=== PATIENT | female | born 1930 | race Caucasian/White ===

== ENCOUNTER 2016-08-08 06:23 | Day surgery (SDC) | payer MEDICARE, BC ==
[2016-08-08] MEDS ORDERED: fentaNYL 100 MCG/2 ML SDV ONE (07:27)
[2016-08-08] MEDS ORDERED: Propofol 200 MG/20 ML SDV ONE (07:27)
[2016-08-08] MEDS ORDERED: Dextrose 5%-Lactated Ringers 1,000 ML IV SCH (07:45)
[2016-08-08] MEDS ORDERED: Glycopyrrolate 0.2 MG/ML 2 ML SYRINGE IVPUSH ONE (08:30)
[2016-08-08 09:41] VITALS: BP 113/58
--- NOTE | 2016-08-16 09:19 | OR ---
DATE OF PROCEDURE: 08/08/2016 PREOPERATIVE DIAGNOSIS: Epigastric pain status previous bariatric surgery. POSTOPERATIVE DIAGNOSES: 1. 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 2. Chronic gastritis with gastric polyps x2. OPERATIVE PROCEDURE: Upper GI endoscopy with. 1. Polypectomy of antral polyps x2. 2. Biopsies of antrum for CLOtest. ANESTHESIA: IV sedation. INDICATION FOR PROCEDURE: The patient is approximately 4 years status post bariatric surgical procedure done at the [facility]. She was coming into the procedure unclear as to what the exact procedure was. She is having increasing problems with epigastric pain, and the plan is to proceed with an upper endoscopy with biopsies as indicated. Potential risks, including bleeding and perforation were discussed, and the patient wishes to proceed. DETAILS OF PROCEDURE: The patient was taken to the operating room, placed in a left lateral decubitus position. IV sedation was administered, after which the upper GI endoscope was passed orally through the esophagus and into the upper gastric pouch. Examination at this point revealed the patient had a clear-cut Maricruz-en-Y gastric bypass. The distal esophagus and EG junction area were unremarkable. The pouch itself was somewhat reddened, and there was a small amount of bile present. The patient was noted to have a well-defined gastrogastric fistula as well. The gastrojejunostomy itself emptied into a Maricruz limb, which appeared to be standard in location with a blind end on the other side of the main course of the Maricruz limb, indicative of this being a Maricruz-en-Y gastric bypass, as opposed to some sort of a Billroth-II type configuration. The gastrogastric fistula was likely resulting in some bile gastritis within the pouch. In the bypassed stomach, after passing through the fistula, the patient was noted to have chronic gastritis appearance in the antrum. There were two gastric polyps present. The latter were then excised by means of snare technique and both sent for histologic evaluation. An additional biopsy from the antrum was obtained for CLOtest for H. pylori. Pyloric channel and duodenum to the junction of the third and fourth portions were unremarkable. The scope was then withdrawn, after the polypectomy and antral biopsies were obtained. The procedure was concluded. The patient was taken to the recovery room in satisfactory condition. Plan will be to see the patient and her son back next week to discuss treatment options. She appears to be reasonably in good shape to proceed with a revisional procedure, i.e. division of gastrogastric fistula. This would likely result in improvement in her weight, as well as avoid some of the problems with the epigastric discomfort that she has been having. Timi Strong MD /[id number]
== END 2016-08-08 09:56 | disposition home or self-care (01) ==
LOC: JP.SDS 06:23
PROVIDERS: ATTEND Surgery
DX: K29.50 Unspecified chronic gastritis without bleeding (principal); K21.9 Gastro-esophageal reflux disease without esophagitis; Z98.84 Bariatric surgery status
CPT/HCPCS: 43239; 87081; 88305; 88342; J2704; J3010; J7042

== ENCOUNTER 2016-08-19 09:33 | Inpatient (IN) | payer MEDICARE, BC ==
[2016-08-19] MEDS ORDERED: Scopolamine 1.5 MG Transdermal Patch TOP SCH (09:45)
[2016-08-19] MEDS ORDERED: Gabapentin 300 MG Cap PO ONE (09:45)
[2016-08-19] MEDS ORDERED: Celecoxib 200 MG Cap PO ONE (09:45)
[2016-08-19] MEDS ORDERED: Acetaminophen 500 MG Tab PO ONE (09:45)
[2016-08-19] MEDS: Dextrose 5%-Lactated Ringers 1,000 ML IV SCH ×2 (10:26→17:05)
[2016-08-19] MEDS ORDERED: HYDROmorphone/Normal Saline 15 MG/30 ML PCA IV PRN (10:31)
[2016-08-19] MEDS ORDERED: Naloxone 0.4 MG/ML SDV IVPUSH PRN (10:31)
[2016-08-19] MEDS ORDERED: cefOXitin 2 GM in Sodium Chloride 0.9% 50 ML IV ONE (11:15)
[2016-08-19] MEDS ORDERED: Neostigmine Methylsulfate 1 MG/ML 5 ML Syringe ONE (11:52)
[2016-08-19] MEDS ORDERED: Propofol 200 MG/20 ML SDV ONE (11:54)
[2016-08-19] MEDS ORDERED: Scopolamine 1.5 MG Transdermal Patch ONE (11:54)
[2016-08-19] MEDS ORDERED: Dexamethasone 4 MG/ML SDV ONE (11:54)
[2016-08-19] MEDS ORDERED: Ondansetron 4 MG/2 ML SDV ONE (11:54)
[2016-08-19] MEDS ORDERED: Succinylcholine/Normal Saline 200 MG/10 ML Syringe ONE (11:54)
[2016-08-19] MEDS ORDERED: Lactated Ringers 1,000 ML ONE ×2 (11:54→14:35)
[2016-08-19] MEDS ORDERED: Rocuronium 50 MG/5 ML Vial ONE (11:54)
[2016-08-19] MEDS ORDERED: fentaNYL 250 MCG/5 ML SDV ONE (11:55)
[2016-08-19] MEDS ORDERED: Ropivacaine 43 ML, Dexamethasone 8 MG, EPINEPHrine 0.4 MG, Sodium Chloride 0.9% 34.6 ML NERVRT SCH ×4 (12:00)
[2016-08-19] MEDS ORDERED: Ketamine 500 MG/5 ML MDV IV SCH (12:00)
[2016-08-19] MEDS ORDERED: Lidocaine 2% 100 MG/5 ML Syringe IVPUSH SCH (12:00)
[2016-08-19] MEDS ORDERED: Lidocaine 1% 2 ML ONE (13:36)
[2016-08-19] MEDS ORDERED: Meropenem 500 MG SDV ONE (14:19)
[2016-08-19] MEDS ORDERED: Meropenem 500 MG SDV IRR ONE (14:22)
[2016-08-19] MEDS: Lidocaine 0.4%/D5W 2 GM/500 ML BAG IV SCH (17:12)
[2016-08-19] MEDS ORDERED: Ondansetron 4 MG/2 ML SDV IVPUSH PRN (17:18)
[2016-08-19] MEDS ORDERED: Labetalol 20 MG/4 ML Syringe IVPUSH PRN (17:18)
[2016-08-19] MEDS ORDERED: hydrOXYzine HCl 50 MG/ML SDV IM PRN (17:18)
[2016-08-19] MEDS ORDERED: SCOPOLAMINE PATCH ASK TOP SCH (17:18)
[2016-08-19] MEDS ORDERED: Metoclopramide 10 MG/2 ML SDV IV PRN (17:23)
[2016-08-19] MEDS ORDERED: diphenhydrAMINE 50 MG/ML SDV IV PRN (17:23)
[2016-08-19] MEDS: Acetaminophen Soln 650 MG/20.3 ML UD Cup PO SCH (17:53)
[2016-08-19] MEDS ORDERED: Lactated Ringers 500 ML IV SCH (20:00)
[2016-08-19] MEDS: MVI, Adult with Vitamin K 10 ML, Thiamine 200 MG, Chromium/Copper/Mang/Selen/Zn 1 ML in... IV SCH ×4 (20:12)
[2016-08-19] MEDS ORDERED: Gabapentin 250 MG/5 ML Solution ML 470 ML Bottle PO SCH (21:00)
[2016-08-19] MEDS: Gabapentin 250 MG/5 ML Solution ML 470 ML Bottle PO SCH (21:03)
[2016-08-19] MEDS: Heparin Sodium 5,000 Units/ML Vial SUBCUT SCH (21:07)
[2016-08-19] MEDS: Pantoprazole 40 MG Vial IVPUSH SCH (21:20)
[2016-08-19] MEDS: cefOXitin 2 GM in Sodium Chloride 0.9% 50 ML IV SCH (21:25)
[2016-08-19] MEDS: Naloxone 0.4 MG/ML SDV IV PRN ×2 (23:11→23:18)
[2016-08-20] MEDS: Acetaminophen Soln 650 MG/20.3 ML UD Cup PO SCH ×5 (00:22→23:56)
[2016-08-20] MEDS: cefOXitin 2 GM in Sodium Chloride 0.9% 50 ML IV SCH ×4 (01:59→20:10)
[2016-08-20] MEDS: Dextrose 5%-Lactated Ringers 1,000 ML IV SCH ×2 (02:00→07:28)
[2016-08-20] MEDS: Lidocaine 0.4%/D5W 2 GM/500 ML BAG IV SCH (05:12)
[2016-08-20] MEDS: Heparin Sodium 5,000 Units/ML Vial SUBCUT SCH ×2 (07:32→20:07)
[2016-08-20] MEDS ORDERED: Potassium Phosphates 15 MMOLE in Sodium Chloride 0.9% 250 ML IV ONE (09:00)
[2016-08-20] MEDS: SCOPOLAMINE PATCH CHECK TOP SCH (09:28)
[2016-08-20] MEDS: Gabapentin 250 MG/5 ML Solution ML 470 ML Bottle PO SCH (09:28)
[2016-08-20] MEDS: Magnesium Sulfate/Water 2 GM in Premix Bag 1 BAG IV SCH ×3 (09:37→22:02)
[2016-08-20] MEDS: Phosphorus #1 250 MG Tab PO SCH ×3 (09:59→22:04)
[2016-08-20] MEDS: Celecoxib 200 MG Cap PO SCH (10:00)
[2016-08-20] MEDS ORDERED: Iohexol 647 MG/ML 50 ML SDV PO PRN (12:39)
[2016-08-20] MEDS: traMADol 50 MG Tab PO PRN ×2 (12:49→20:06)
--- NOTE | 2016-08-20 13:19 | PN ---
DATE OF SERVICE: 08/20/2016 SUBJECTIVE: Danette has been very sleepy. She has had 0.2 IV of Narcan. She is sitting up in the chair now, urine output decreased. She was given a bolus of lactated Ringer's. Connors catheter will remain in for decreased urine output. Pain is managed. She will go down for her upper GI, when she is more awake and able to stand. Hemoglobin this morning was 14.4, glucose 213, albumin was 2.8, phosphorus was 1.8, magnesium was 1.3, and ferritin was 19. OBJECTIVE: GENERAL: Danette is an 85-year-old female. She is sitting up in the chair. She is comfortable and dozing off. VITAL SIGNS: TPR is 97.7, 102, 16, blood pressure 145/83. HEENT: Negative. NECK: Supple. HEART: Regular rate and rhythm. LUNGS: Clear. ABDOMEN: Dressings dry and intact. Abdominal binder is on. EXTREMITIES: Without peripheral edema. ASSESSMENT: Exploratory laparotomy with revision of Maricruz-en-Y gastric bypass surgery, closure of gastrogastric fistula and revision of the jejunojejunostomy, removed intraperitoneal mesh with small bowel resection, small bowel strictureplasty, and repair of recurrent incarcerated incisional hernia for status post Maricruz-en-Y gastric bypass surgery with gastrogastric fistula, and chronic bile gastritis, intraperitoneal mesh with adherent small bowel, recurrent incarcerated incisional hernia, and separate small-bowel stricture on 08/19/2016. PLAN: 1. Decrease IV to 100 mL per hour. 2. Leave Connors in for decreased urine output. 3. Step-1 gastric bypass diet. 4. Magnesium 2 g IV q.6 hours x72 hours. 5. Neutra-Phos 250 mg q.i.d. 6. K-Phos 15 millimoles IV. 7. Check CBC, CMP, BNP, and phos in a.m. 8. Discontinue telemetry when lidocaine IV is completed. 9. We will evaluate p.r.n. or in a.m. Nai Ji PA-C /[id number]
[2016-08-20] MEDS: MVI, Adult with Vitamin K 10 ML, Thiamine 200 MG, Chromium/Copper/Mang/Selen/Zn 1 ML in... IV SCH ×4 (15:45)
[2016-08-20] MEDS: Pantoprazole 40 MG Vial IVPUSH SCH (20:08)
[2016-08-20] MEDS: Haloperidol Lactate 5 MG/ML SDV IVPUSH PRN (22:50)
[2016-08-21] MEDS: Haloperidol Lactate 5 MG/ML SDV IVPUSH PRN ×2 (01:00→03:51)
[2016-08-21] MEDS ORDERED: Iohexol 647 MG/ML 50 ML SDV PO SCH (01:45)
[2016-08-21] MEDS: traMADol 50 MG Tab PO PRN ×3 (02:12→21:31)
[2016-08-21] MEDS: Dextrose 5%-Lactated Ringers 1,000 ML IV SCH (02:13)
[2016-08-21] MEDS: cefOXitin 2 GM in Sodium Chloride 0.9% 50 ML IV SCH ×3 (02:13→15:55)
[2016-08-21] MEDS: Magnesium Sulfate/Water 2 GM in Premix Bag 1 BAG IV SCH ×4 (05:05→21:01)
[2016-08-21] MEDS: Phosphorus #1 250 MG Tab PO SCH ×4 (05:06→21:01)
[2016-08-21] MEDS: Acetaminophen Soln 650 MG/20.3 ML UD Cup PO SCH ×3 (05:06→18:00)
[2016-08-21] MEDS: Heparin Sodium 5,000 Units/ML Vial SUBCUT SCH ×2 (08:23→20:58)
[2016-08-21] MEDS: SCOPOLAMINE PATCH CHECK TOP SCH (08:30)
[2016-08-21] MEDS ORDERED: Cyanocobalamin (Vitamin B12) 1,000 MCG/ML SDV IM ONE (09:00)
[2016-08-21] MEDS: Celecoxib 200 MG Cap PO SCH (09:42)
--- NOTE | 2016-08-21 14:18 | CR ---
UGI wo KUB HISTORY: evaluate RNY rev FINDINGS: After administration of oral contrast, upright views were obtained. Post operative changes gastric bypass. Surgical drains in place. No evidence for leak. Contrast passes freely into proxima l small bowel loops. IMPRESSION: No evidence for leak or obstruction.
[2016-08-21] MEDS: MVI, Adult with Vitamin K 10 ML, Thiamine 200 MG, Chromium/Copper/Mang/Selen/Zn 1 ML in... IV SCH ×4 (15:55)
[2016-08-21] MEDS: Pantoprazole 40 MG Vial IVPUSH SCH (20:58)
--- NOTE | 2016-08-21 23:20 | PN ---
DATE OF SERVICE: 08/21/2016 SUBJECTIVE: Danette is postop day #2. She remains to be quite confused and very sleepy. She has not been able to go down for her upper GI. Postoperatively, her pain seems to be controlled and she basically has not slept hardly at all during the night. Oral intake was 800 and output via Connors catheter was 2175. MADINA drains have put out 20 and 75 of a pink serous drainage. OBJECTIVE: GENERAL: Danette is an 85-year-old female. She is quite sleepy. VITAL SIGNS: TPR 97.7, 86, 16. Blood pressure 114/57. HEENT: Negative. NECK: Supple. HEART: Regular rate and rhythm. LUNGS: Clear. ABDOMEN: Owings intact. Incision looks good. There is no redness, firmness, or warmth noted around staple line. Her MADINA drain is intact. EXTREMITIES: Without peripheral edema. ASSESSMENT: Exploratory laparotomy with revision of Maricruz-en-Y gastric bypass surgery, closure of gastrogastric fistula and revision of the jejunostomy, removal of intraperitoneal mesh with small bowel resection, small bowel stricture plasty, repair of recurrent incarcerated incisional hernia. Status post Maricruz-en-Y gastric bypass surgery with gastrogastric fistula and chronic bile gastritis, intraperitoneal mesh with adherent small bowel, recurrent incarcerated incisional hernia and separate small-bowel stricture on 08/19/2016. PLAN: 1. Try to obtain upper GI when patient is awake enough and able to stand. 2. Discontinue Connors catheter. 3. Discontinue Reglan. 4. Tramadol 50 mg q.4 hours p.r.n. pain. 5. Aquacel dressing. 6. Call Dr. Strong when the upper GI is done. 7. Good pulmonary toilet encouraged. 8. We will evaluate p.r.n. or in a.m. Nai Ji PA-C /[id number]
[2016-08-22] MEDS: Acetaminophen Soln 650 MG/20.3 ML UD Cup PO SCH ×5 (01:00→23:01)
[2016-08-22] MEDS: Magnesium Sulfate/Water 2 GM in Premix Bag 1 BAG IV SCH ×4 (03:58→21:08)
[2016-08-22] MEDS: Dextrose 5%-Lactated Ringers 1,000 ML IV SCH (03:58)
[2016-08-22] MEDS: Phosphorus #1 250 MG Tab PO SCH ×4 (06:11→23:01)
[2016-08-22] MEDS: traMADol 50 MG Tab PO PRN ×3 (06:28→21:06)
[2016-08-22] MEDS: Heparin Sodium 5,000 Units/ML Vial SUBCUT SCH ×2 (08:27→20:53)
[2016-08-22] MEDS: Celecoxib 200 MG Cap PO SCH (08:28)
[2016-08-22] MEDS: Potassium Chloride 10% 20 MEQ/15 ML Soln 15 ML UD Cup PO SCH ×2 (08:28→17:40)
[2016-08-22] MEDS ORDERED: Furosemide 20 MG/2 ML VIAL IVPUSH ONE (09:00)
--- NOTE | 2016-08-22 09:46 | PN ---
DATE OF SERVICE: 08/22/2016 SUBJECTIVE: Danette is postop day #3, she has been up, ambulating. She is more alert. Upper GI was normal. MADINA drain in her incision has put out about 10 mL but it has been leaking a little bit at the site. Oral intake was 800 and it is also recorded as 480 and her urine output was 2175. She has consumed 100% of breakfast, lunch, and snack. She reports her pain is controlled. She has one area on the left side of her incision that is more painful than the rest. REVIEW OF SYSTEMS: Remainder of review of systems is negative for any pertinent positives or negatives. OBJECTIVE: GENERAL: Danette Bauman is an 85-year-old female. VITAL SIGNS: TPR is 97.8, 87, 16, blood pressure is 108/55. HEENT: Negative. NECK: Supple. HEART: Regular rate and rhythm. LUNGS: Reveal rales in bilateral bases and bilateral and mid area. ABDOMEN: Aquacel dressing is intact. MADINA drain intact. Abdominal binder is on. EXTREMITIES: Revealed trace peripheral edema. ASSESSMENT: Exploratory laparotomy with revision of Maricruz-en-Y gastric bypass surgery, closure of gastrogastric fistula, and revision of the jejunostomy, removal of intraperitoneal mesh with small bowel resection, small bowel strictureplasty, repair of recurrent incarcerated incisional hernia, status post Maricruz-en-Y gastric bypass surgery with gastrogastric fistula, chronic bile gastritis, intraperitoneal mesh with adherent small bowel, recurrent incarcerated incisional hernia, and separate small-bowel stricture on 08/19/2016. PLAN: 1. Ambulate six times daily. 2. Consult discharge planning. 3. Physical therapy to evaluate and treat for strengthening and ambulation postoperatively. 4. Lasix 20 mg IV. 5. If oral intake is adequate, may decrease IV to 40 mL/h. 6. KCl 20 mEq p.o. b.i.d. Check BNP today and check CBC, BNP, CMP, and phos in a.m. 7. Good pulmonary toilet encouraged. 8. Reevaluate p.r.n. or in a.m. Nai Ji PA-C /[id number]
[2016-08-22] MEDS ORDERED: Dextrose 5%-Lactated Ringers 1,000 ML IV SCH (12:00)
[2016-08-22] MEDS: Pantoprazole 40 MG Tab.CR PO SCH (20:53)
[2016-08-23] MEDS: Magnesium Sulfate/Water 2 GM in Premix Bag 1 BAG IV SCH (04:29)
[2016-08-23] MEDS: traMADol 50 MG Tab PO PRN ×2 (04:33→20:53)
[2016-08-23] MEDS: Phosphorus #1 250 MG Tab PO SCH ×4 (06:11→23:11)
[2016-08-23] MEDS: Acetaminophen Soln 650 MG/20.3 ML UD Cup PO SCH ×4 (06:12→23:35)
[2016-08-23] MEDS: Potassium Chloride 10% 20 MEQ/15 ML Soln 15 ML UD Cup PO SCH ×2 (07:24→17:29)
[2016-08-23] MEDS: Heparin Sodium 5,000 Units/ML Vial SUBCUT SCH ×2 (07:24→20:26)
--- NOTE | 2016-08-23 07:55 | PN ---
DATE OF SERVICE: 08/23/2016 SUBJECTIVE: Danette is postop day #4. She is sitting up in the chair. She is alert today. Her vital signs have been stable. Her oral intake over the past 24 hours was 1410 and output 800. MADINA drains have put out 5 and 25 mL respectively. Pain has been controlled. REVIEW OF SYSTEMS: Remainder of review of systems negative for any pertinent positives and negatives. OBJECTIVE: GENERAL: Danette Bauman is an 85-year-old female. She is alert and orientated, color pale. SKIN: Warm and dry. VITAL SIGNS: TPR is 97.4, 85, 16, blood pressure 131/65. HEENT: Negative. NECK: Supple. HEART: Regular rate and rhythm. LUNGS: Clear. ABDOMEN: Dressings dry and intact. Abdominal binder is on. MADINA drains x2 intact. EXTREMITIES: SCDs are on. There is very limited peripheral edema. ASSESSMENT: Exploratory laparotomy with revision of Maricruz-en-Y gastric bypass surgery, closure of gastrogastric fistula, and revision of jejunostomy, removal of intraperitoneal mesh with small bowel resection, small bowel stricturoplasty, repair of recurrent incarcerated incisional hernia for status post Maricruz-en-Y gastric bypass surgery with gastrogastric fistula, chronic bile gastritis, intraperitoneal mesh with adherent small bowel, recurrent incarcerated incisional hernia, and separate small bowel stricture on 08/19/2016. PLAN: Discharge planning will be talking to Danette's daughter this weekend. Planned discharge on 08/26/2016. Will evaluate p.r.n. or in a.m. Nai Ji PA-C /[id number]
[2016-08-23] MEDS: Celecoxib 200 MG Cap PO SCH (09:14)
--- NOTE | 2016-08-23 17:52 | PCM.CONS ---
H&P History of Present Illness - General Date of Service: 08/23/16 Source of Information: Patient, Family, Provider History Limitations: Reports: No limitations - History of Present Illness Initial Comments - Free Text/Narative: I was asked by Dr. Strong to see Danette regarding chest pain. Patient reports that throat the day she's had progressive discomfort in her midsternal area. This is sharp and often occurs after she tries to eat or drink anything. The pain lasts for a matter of seconds before resolving. She did have 2 very short- lived episodes while she was up and walking around as well. The pain is gone before she can take anything to help it feel better. The pain does not radiate. She had similar but much more mild pain yesterday. No complaints of shortness of breath, palpitations or nausea. Abdominal pain has been well- controlled. No fevers or chills. Left Upper Abdomen Pain Score (Numeric/FACES): 0 - Related Data Allergies/Adverse Reactions: Allergies Allergy/AdvReac Type Severity Reaction Status Date / Time No Known Allergies Allergy Verified 08/16/16 08:42 Home Medications: Home Meds traMADol HCl [Ultram] 50 mg PO Q8H PRN 06/20/14 [History] Naproxen Sodium [Aleve] 220 mg PO ASDIRECTED 05/29/16 [History] Omeprazole 40 mg PO DAILY 08/06/16 [History] Ranitidine HCl [Zantac] 150 mg PO DAILY 08/06/16 [History] Past Medical History HEENT History: Reports: Cataract, Hard of hearing, Impaired vision Other HEENT History: wears glasses Cardiovascular History: Reports: SOB on exertion, Syncope Gastrointestinal History: Reports: Cholelithiasis, Chronic constipation, Gastritis, GERD 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: 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: Musculoskeletal History: Reports: Arthritis, Back pain, chronic, Fracture, Other (see below) Other Musculoskeletal History: rib fx 2 different times Neurological History: Reports: Headaches, chronic Endocrine/Metabolic History: Reports: Obesity/BMI 30+, Vitamin D deficiency Dermatologic History: Reports: None - Infectious Disease History Infectious Disease History: Reports: Chicken pox, Measles - Past Surgical History HEENT Surgical History: Reports: Cataract surgery Cardiovascular Surgical History: Reports: None GI Surgical History: Reports: Appendectomy, Bariatric procedure, Cholecystectomy , Colonoscopy, EGD, Hernia, abdominal, Other (see below) Other GI Surgeries/Procedures: bariatric surgery 40+ years ago in [place], [place] Endocrine Surgical History: Reports: None Neurological Surgical History: Reports: None Musculoskeletal Surgical History: Reports: Arthroscopic knee, Arthroscopic procedure, Shoulder surgery Dermatological Surgical History: Reports: Skin biopsy Social & Family History - Family History Cardiac: Reports: CAD, [place] Neurological: Reports: Parkinson's Oncologic: Reports: Lymphoma - Tobacco Use Smoking Status *Q: Never Smoker Second Hand Smoke Exposure: No - Caffeine Use Caffeine Use: Reports: Coffee - Alcohol Use Days Per Week of Alcohol Use: 0 - Recreational Drug Use Recreational Drug Use: No H&P Review of Systems - Review of Systems: Review Of Systems: See Below Free Text/Narrative: A complete 12 point review of systems was obtained. Pertinent positives and negatives are noted in the history of present illness. All other systems were reviewed and were negative except as noted. Exam - Exam Exam: See Below - Vital Signs Vital Signs: Last Vital Signs Temp 36.7 C 08/23/16 16:15 Pulse 84 08/23/16 16:15 Resp 18 08/23/16 16:15 BP 138/73 08/23/16 16:15 Pulse Ox 85 L 08/23/16 16:15 Weight: 87.997 kg - Exam Quality Assessment: supplemental oxygen General: alert, oriented, cooperative. No: mild distress HEENT: Conjunctiva clear, Mucosa moist & pink. No: Scleral icterus Neck: supple, trachea midline. No: lymphadenopathy, thyromegaly Lungs: Clear to auscultation, Normal respiratory effort Cardiovascular: regular rate, regular rhythm. No: systolic murmur Abdomen: soft, distention Back Exam: normal inspection, full range of motion Extremities: edema (pitting edema both legs, mild). No: normal inspection, cyanosis Peripheral Pulses: 1+: dorsalis pedis (L), dorsalis pedis (R) Skin: warm, dry Neuro Extensive - Mental Status: alert, oriented x3 Neuro Extensive - Motor, Sensory, Reflexes: CN II-XII intact. No: dysarthria, abnormal motor, tremor Psychiatric: alert, normal affect - Patient Data Lab Results last 24 hrs: Laboratory Results - last 24 hr 08/23/16 Range/Units 04:00 Magnesium 3.6 H D (1.8-2.4) mg/dL Result Diagrams: 08/22/16 07:23 08/22/16 07:23 Imaging Impressions last 24 hrs: Chest x-ray - images personally reviewed - possible small left pleural effusion versus shadow from breast tissue. Lungs otherwise clear. Heart size normal. No infiltrate or CHF. Consult PN Assessment/Plan POD#: 4 Procedures: Procedures ARTHROSCOP ROTATOR CUFF REPR (06/22/14) ARTHROSCOPY OF JOINT (06/22/14) C-REACTIVE PROTEIN (05/29/16) CARDIOVASCULAR STRESS TEST (02/04/13) CARDIOVASCULAR STRESS TEST (02/04/13) CHEST X-RAY 2VW FRONTAL&LATL (03/14/13) COMPLETE CBC W/AUTO DIFF WBC (05/29/16) COMPREHEN METABOLIC PANEL (05/29/16) CT ABD & PELVIS W/O CONTRAST (05/29/16) CT THORAX W/O DYE (03/14/13) CULTURE SCREEN ONLY (08/08/16) EGD BIOPSY SINGLE/MULTIPLE (08/08/16) EMERGENCY DEPT VISIT (05/29/16) EMERGENCY DEPT VISIT (08/15/14) HT MUSCLE IMAGE SPECT MULT (02/04/13) IMMUNOHISTO ANTB 1ST STAIN (08/08/16) MRI JOINT UPR EXTREM W/O DYE (06/15/14) ROUTINE VENIPUNCTURE (05/29/16) THER/PROPH/DIAG INJ SC/IM (03/14/13) TISSUE EXAM BY PATHOLOGIST (08/08/16) URINALYSIS AUTO W/SCOPE (05/29/16) URINE CULTURE/COLONY COUNT (05/29/16) X-RAY EXAM OF JAW <4VIEWS (03/14/13) X-RAY EXAM OF PELVIS (05/29/16) X-RAY EXAM OF SHOULDER (03/14/13) Problem List Initiated/Reviewed/Updated: Yes My Orders last 24 hours: My Active Orders 08/23/16 16:43 EKG 12 Lead [EK] Stat 08/23/16 16:44 EKG Documentation Completion [RC] ASDIRECTED 08/23/16 17:26 CXR [Chest 1V Frontal] [CR] Routine TROPONIN I [CHEM] Urgent Plan: ASSESSMENT AND PLAN - Atypical chest pain - most likely this is gastrointestinal in origin with a fair amount of pain just swallowing even water. EKG is unchanged from baseline. Chest x-ray does not show acute pathology. Troponin level is pending. -Followup troponin -Trial of Maalox -I don't believe there is additional workup needed at this time since this most likely gastrointestinal -PPI Thank you for the interesting consultation. I will check on her again in the morning unless there are difficulties overnight. Guero Miranda M.D. Requesting Provider: Dr Strong Date Consult Requested: 08/23/16 Reason for Consult: chest pain Patient History Reviewed: Yes Admission H&P Reviewed: Yes Notified Requestor: No Time Spent (in minutes): 40
[2016-08-23] MEDS: Aluminum Hydroxide/Magnesium Hydroxide/Simethicone Susp 30 ML Cup PO PRN (19:58)
[2016-08-23] MEDS: Pantoprazole 40 MG Tab.CR PO SCH (20:25)
[2016-08-24] MEDS: Acetaminophen Soln 650 MG/20.3 ML UD Cup PO SCH ×3 (05:54→17:44)
[2016-08-24] MEDS: Aluminum Hydroxide/Magnesium Hydroxide/Simethicone Susp 30 ML Cup PO PRN ×2 (05:55→11:53)
[2016-08-24] MEDS: Phosphorus #1 250 MG Tab PO SCH ×4 (05:55→22:04)
[2016-08-24] MEDS ORDERED: Sodium Chloride 0.9% 10 ML Syringe IV PRN (07:35)
[2016-08-24] MEDS: Potassium Chloride 10% 20 MEQ/15 ML Soln 15 ML UD Cup PO SCH ×2 (08:08→16:33)
[2016-08-24] MEDS: Heparin Sodium 5,000 Units/ML Vial SUBCUT SCH ×2 (08:08→20:46)
[2016-08-24] MEDS: Celecoxib 200 MG Cap PO SCH (09:33)
--- NOTE | 2016-08-24 16:05 | PCM.CONSN ---
- General Info Date of Service: 08/24/16 Functional Status: Reports: pain controlled. Denies: tolerating diet - Review of Systems Cardiovascular: Reports: Chest Pain (with swallowing ) Systems Review Comment:: No acute events overnight. Still having some discomfort with swallowing as well as intermittent episodes of spasm-like pain. His last only for seconds. Vital signs have been stable. Maalox did not help much. - Patient Data Vitals - most recent: Last Vital Signs Temp 36.6 C 08/24/16 14:28 Pulse 72 08/24/16 14:28 Resp 18 08/24/16 14:28 BP 139/69 08/24/16 14:28 Pulse Ox 90 L 08/24/16 14:28 Weight - most recent: 87.997 kg I&O - last 24 hours: Intake & Output 08/24/16 08/24/16 08/24/16 06:59 14:59 22:59 Intake Total 464 480 Output Total 463 975 Balance 1 -495 Lab Results last 24 hrs: Laboratory Results - last 24 hr 08/23/16 Range/Units 17:37 Troponin I < 0.017 (0.000-0.056) ng/mL Eitan Results last 24 hrs: Microbiology 08/24/16 10:22 Clostridium difficile (PCR) - Final Stool / Feces NEGATIVE CDIFF TOXIN Med Orders - Current: Current Medications Acetaminophen (Tylenol) 650 mg PO Q6H [facility] Last Admin: 08/24/16 11:54 Dose: 650 mg Al Hydroxide/Mg Hydroxide (Mag-Al Plus) 30 ml PO Q4H PRN PRN Reason: Indigestion Last Admin: 08/24/16 11:53 Dose: 30 ml Celecoxib (Celebrex) 200 mg PO DAILY [facility] Last Admin: 08/24/16 09:33 Dose: 200 mg Heparin Sodium (Porcine) (Heparin Sodium) 5,000 units SUBCUT Q12H [facility] Last Admin: 08/24/16 08:08 Dose: 5,000 units Hydroxyzine HCl (Vistaril) 75 - 100 mg IM Q4H PRN PRN Reason: PAIN NOT CONTROLLED BY HAT IRONER Last Admin: 08/20/16 15:04 Dose: 100 mg Pantoprazole Sodium (Protonix) 40 mg PO BEDTIME [facility] Last Admin: 08/23/16 20:25 Dose: 40 mg Potassium Chloride (Potassium Chloride Solution) 20 meq PO BIDMEALS [facility] Last Admin: 08/24/16 08:08 Dose: 20 meq Sodium Chloride (Saline Flush) 10 ml IV ASDIRECTED PRN PRN Reason: LINE FLUSH Sodium Phosphate (Neutra-Phos) 250 mg PO QID [facility] Last Admin: 08/24/16 15:33 Dose: Not Given Tramadol HCl (Ultram) 50 mg PO Q4H PRN PRN Reason: PAIN Last Admin: 08/23/16 20:53 Dose: 50 mg Discontinued Medications Acetaminophen (Tylenol Extra Strength) 1,000 mg PO ONETIME ONE Stop: 08/19/16 09:46 Last Admin: 08/19/16 10:25 Dose: 1,000 mg Celecoxib (Celebrex) 200 mg PO ONETIME ONE Stop: 08/19/16 09:46 Last Admin: 08/19/16 10:26 Dose: 200 mg Ropivacaine 43 ml/Dexamethasone 8 mg/Epinephrine HCl 0.4 mg/ Sodium Chloride 34.6 ml 0 ml NERVRT ASDIRECTED [facility] Cyanocobalamin (Vitamin B12) 1,000 mcg IM ONETIME ONE Stop: 08/21/16 09:01 Last Admin: 08/21/16 09:41 Dose: 1,000 mcg Dexamethasone (Dexamethasone) Confirm Administered Dose 4 mg .ROUTE .STK-MED ONE Stop: 08/19/16 11:55 Diphenhydramine HCl (Benadryl) 25 - 50 mg IV Q4H PRN PRN Reason: ITCHING Last Admin: 08/20/16 20:49 Dose: 50 mg Fentanyl (Sublimaze) Confirm Administered Dose 500 mcg .ROUTE .STK-MED ONE Stop: 08/19/16 11:56 Furosemide (Lasix) 20 mg IVPUSH ONETIME ONE Stop: 08/22/16 09:01 Last Admin: 08/22/16 08:28 Dose: 20 mg Gabapentin (Neurontin) 300 mg PO ONETIME ONE Stop: 08/19/16 09:46 Last Admin: 08/19/16 10:26 Dose: 300 mg Gabapentin (Neurontin) 300 mg PO BID [facility] Last Admin: 08/20/16 09:28 Dose: Not Given Glycopyrrolate () Confirm Administered Dose 1 mg .ROUTE .STK-MED ONE Stop: 08/19/16 11:55 Haloperidol Lactate (Haldol) 2.5 mg IVPUSH Q2H PRN PRN Reason: Agitation Last Admin: 08/21/16 03:51 Dose: 2.5 mg Hydromorphone HCl (Dilaudid Youth Accommodation Support Worker 15 Mg In Ns 30 Ml) 0 mg IV ASDIRECTED PRN; Protocol PRN Reason: Pain Last Admin: 08/19/16 10:36 Dose: 0.2 mg Cefoxitin Sodium 2 gm/ Sodium (Chloride) 50 mls @ 100 mls/hr IV ONCALL ONE Stop: 08/19/16 11:44 Last Admin: 08/19/16 13:20 Dose: 100 mls/hr Lidocaine HCl/Dextrose (Lidocaine 2 Gm/D5w 500 Ml) 2 gm in 500 mls @ 30 mls/hr IV .[id number] [facility] PRN Reason: 2 MG/MIN Stop: 08/20/16 16:00 Last Admin: 08/20/16 05:12 Dose: 2 mg/min, 30 mls/hr Ketamine HCl 100 mg/ Sodium (Chloride) 100 mls @ 13 mls/hr IV ASDIRECTED [facility] Dextrose/Lactated Ringer's (Dextrose 5%-Lactated Ringers) 1,000 mls @ 100 mls/ hr IV ASDIRECTED [facility] Last Admin: 08/19/16 17:05 Dose: 100 mls/hr Lactated Ringer's (Ringers, Lactated) Confirm Administered Dose 1,000 mls @ as directed .ROUTE .STK-MED ONE Stop: 08/19/16 11:55 Lidocaine HCl (Xylocaine-Mpf 1%) Confirm Administered Dose 2 mls @ as directed .ROUTE .STK-MED ONE Stop: 08/19/16 13:37 Lactated Ringer's (Ringers, Lactated) Confirm Administered Dose 1,000 mls @ as directed .ROUTE .STK-MED ONE Stop: 08/19/16 14:36 Dextrose/Lactated Ringer's (Dextrose 5%-Lactated Ringers) 1,000 mls @ 200 mls/ hr IV ASDIRECTED [facility] Last Admin: 08/20/16 07:28 Dose: 200 mls/hr Multivitamins/Minerals 10 ml/Thiamine HCl 200 mg/ Chromium/Copper/Manganese/ Seleni/Zn 1 ml/ Dextrose/Lactated Ringer's 1,013 mls @ 100 mls/hr IV DAILY@ 1600 [facility] Last Admin: 08/21/16 15:55 Dose: 100 mls/hr Cefoxitin Sodium 2 gm/ Sodium (Chloride) 50 mls @ 100 mls/hr IV Q6H [facility] Stop: 08/21/16 14:29 Last Admin: 08/21/16 15:55 Dose: 100 mls/hr Lactated Ringer's (Ringers, Lactated) 500 mls @ [facility] Admin: 08/19/16 20:11 Dose: 500 mls/hr Dextrose/Lactated Ringer's (Dextrose 5%-Lactated Ringers) 1,000 mls @ 100 [facility]ls[facility] Last Admin: 08/22/16 03:58 Dose: 100 mls/hr Magnesium Sulfate 2 gm/ Premix 50 mls @ 25 mls/hr IV Q6H [facility] Stop: 08/23/16 05:59 Last Admin: 08/23/16 04:29 Dose: 25 mls/hr Potassium Phosphate 15 mmole/ (Sodium Chloride) 255 mls @ 85 mls/hr IV ONETIME ONE Stop: 08/20/16 11:59 Last Admin: 08/20/16 09:32 Dose: 85 mls/hr Iohexol (Omnipaque-300) 50 ml PO . DIRECTED PRN PRN Reason: RADIOLOGY EXAM Stop: 08/21/16 12:40 Iohexol (Omnipaque-300) [facility] Last Admin: 08/21/16 13:43 Dose: 50 ml Ketamine HCl (Ketalar) 22 mg IV ASDIRECTED [facility] Labetalol HCl (Normodyne) 5 - 15 mg IVPUSH Q1H PRN PRN Reason: SBP over 160 OR DBP over 95 Lidocaine HCl (Xylocaine 2%) 92 mg IVPUSH ASDIRECTED [facility] Meropenem (Merrem) 500 mg IRR .STK-MED ONE Stop: 08/19/16 14:23 Last Admin: 08/19/16 14:22 Dose: 500 mg Meropenem (Merrem) Confirm Administered Dose 500 mg .ROUTE .STK-MED ONE Stop: 08/19/16 14:20 Metoclopramide HCl (Reglan) 10 mg IV Q6H PRN PRN Reason: N/V Naloxone HCl (Narcan) 0.1 mg IV ASDIRECTED PRN PRN Reason: decreased respiratory rate Last Admin: 08/19/16 23:18 Dose: 0.1 mg Neostigmine Methylsulfate (Neostigmine) Confirm Administered Dose 5 mg .ROUTE .STK-MED ONE Stop: 08/19/16 11:53 Scopolamine Patch (Check) 1 each TOP DAILY [facility] Last Admin: 08/21/16 08:30 Dose: Not Given Ondansetron HCl (Zofran) Confirm Administered Dose 4 mg .ROUTE .STK-MED ONE Stop: 08/19/16 11:55 Ondansetron HCl (Zofran) 4 mg IVPUSH Q4H PRN PRN Reason: Nausea/Vomiting Pantoprazole Sodium (Protonix Iv) 40 mg IVPUSH Q24H [facility] Last Admin: 08/21/16 20:58 Dose: 40 mg Propofol (Diprivan 20 Ml) Confirm Administered Dose 200 mg .ROUTE .STK-MED ONE Stop: 08/19/16 11:55 Rocuronium [place] (Zemuron) Confirm Administered Dose 100 mg .ROUTE .STK-MED ONE Stop: 08/19/16 11:55 Scopolamine (Transderm-Scop) 1.5 mg TOP Q72H [facility] Stop: 08/22/16 07:45 Last Admin: 08/19/16 10:25 Dose: 1.5 mg Scopolamine (Transderm-Scop) Confirm Administered Dose 1.5 mg .ROUTE .STK-MED ONE Stop: 08/19/16 11:55 Scopolamine (Transderm-Scop) 1.5 mg TOP ASDIRECTED [facility] Stop: 08/22/16 16:00 Succinylcholine Chloride (Succinylcholine In Ns Pf) Confirm Administered Dose 200 mg .ROUTE .STK-MED ONE Stop: 08/19/16 11:55 Tramadol HCl (Ultram) 50 mg PO Q6H PRN PRN Reason: pain Last Admin: 08/21/16 02:12 Dose: 50 mg - Exam Quality Assessment: No: supplemental oxygen General: alert, oriented, cooperative, no acute distress Neck: supple Lungs: Normal respiratory effort Abdomen: no distension Extremities: no edema Psy/Mental Status: alert, normal affect Consult PN Assessment/Plan Procedures: Procedures ARTHROSCOP ROTATOR CUFF REPR (06/22/14) ARTHROSCOPY OF JOINT (06/22/14) C-REACTIVE PROTEIN (05/29/16) CARDIOVASCULAR STRESS TEST (02/04/13) CARDIOVASCULAR STRESS TEST (02/04/13) CHEST X-RAY 2VW FRONTAL&LATL (03/14/13) COMPLETE CBC W/AUTO DIFF WBC (05/29/16) COMPREHEN METABOLIC PANEL (05/29/16) CT ABD & PELVIS W/O CONTRAST (05/29/16) CT THORAX W/O DYE (03/14/13) CULTURE SCREEN ONLY (08/08/16) EGD BIOPSY SINGLE/MULTIPLE (08/08/16) EMERGENCY DEPT VISIT (05/29/16) EMERGENCY DEPT VISIT (08/15/14) HT MUSCLE IMAGE SPECT MULT (02/04/13) IMMUNOHISTO ANTB 1ST STAIN (08/08/16) MRI JOINT UPR EXTREM W/O DYE (06/15/14) ROUTINE VENIPUNCTURE (05/29/16) THER/PROPH/DIAG INJ SC/IM (03/14/13) TISSUE EXAM BY PATHOLOGIST (08/08/16) URINALYSIS AUTO W/SCOPE (05/29/16) URINE CULTURE/COLONY COUNT (05/29/16) X-RAY EXAM OF JAW <4VIEWS (03/14/13) X-RAY EXAM OF PELVIS (05/29/16) X-RAY EXAM OF SHOULDER (03/14/13) Problem List Initiated/Reviewed/Updated: Yes My Orders last 24 hours: My Active Orders 08/23/16 16:43 EKG 12 Lead [EK] Stat 08/23/16 17:26 CXR [Chest 1V Frontal] [CR] Routine 08/23/16 19:29 Alum Hydrox/Mag Hydrox/Simeth [Mag-Al Plus] 30 ml PO Q4H PRN 08/24/16 16:03 Alum Hydrox/Mag Hydrox/Simeth [Mag-Al Plus] 15 ml Lidocaine 2% [Xylocaine 2% Viscous] 15 ml PO Q6H Plan: ASSESSMENT AND PLAN - Atypical chest pain - most likely this is gastrointestinal in origin with a fair amount of pain just swallowing even water. Cardiac workup negative. Vital signs stable. Still having some pain. -Trial of GI cocktail -I don't believe there is additional workup needed at this time since this most likely gastrointestinal -PPI Guero Miranda M.D.
[2016-08-24] MEDS ORDERED: Lidocaine 2% Viscous Solution 15 ML Cup ONE (16:44)
[2016-08-24] MEDS: Alum Hydrox/Mag Hydrox/Simeth 15 ML, Lidocaine 2% 15 ML PO PRN ×4 (16:54→22:04)
[2016-08-24] MEDS: traMADol 50 MG Tab PO PRN (19:41)
[2016-08-24] MEDS: Pantoprazole 40 MG Tab.CR PO SCH (20:47)
[2016-08-25] MEDS: Acetaminophen Soln 650 MG/20.3 ML UD Cup PO SCH ×5 (02:36→23:48)
[2016-08-25] MEDS: Phosphorus #1 250 MG Tab PO SCH (05:00)
[2016-08-25] MEDS: Heparin Sodium 5,000 Units/ML Vial SUBCUT SCH ×2 (08:26→21:08)
[2016-08-25] MEDS: Inulin 1.5 GM Chewable Tab PO SCH ×2 (08:27→21:11)
[2016-08-25] MEDS: Celecoxib 200 MG Cap PO SCH (08:27)
[2016-08-25] MEDS: traMADol 50 MG Tab PO PRN (08:33)
[2016-08-25] MEDS: Alum Hydrox/Mag Hydrox/Simeth 15 ML, Lidocaine 2% 15 ML PO PRN ×6 (10:14→23:48)
[2016-08-25] MEDS: Pantoprazole 40 MG Tab.CR PO SCH (21:11)
[2016-08-26] MEDS: Acetaminophen Soln 650 MG/20.3 ML UD Cup PO SCH (05:28)
[2016-08-26] MEDS: Heparin Sodium 5,000 Units/ML Vial SUBCUT SCH (07:33)
[2016-08-26] MEDS: traMADol 50 MG Tab PO PRN (07:33)
--- NOTE | 2016-08-26 07:53 | PN ---
DATE OF SERVICE: 08/24/2016 The patient has been afebrile with stable vital signs. Overall, her activity level is getting better. She is having some loose stools and will check a C. difficile enterotoxin. Otherwise, at this point, the patient and family decided they want a [place]-term [place] [facility] for [facility]. We will arrange that hopefully for early part of next week. Timi Strong MD /[id number]
[2016-08-26 08:14] VITALS: BP 135/63
[2016-08-26] MEDS: Celecoxib 200 MG Cap PO SCH (08:47)
--- NOTE | 2016-08-26 09:06 | CR ---
Mild cardiomegaly. Blunted left costophrenic angle could indicate a minimal left pleural effusion. N umerous right rib fractures. Pulmonary vasculature upper limits of normal. Streaky density left lung base. Findings may indicate atelectasis or infiltrate.
--- NOTE | 2016-08-26 09:14 | PN ---
DATE OF SERVICE: 08/26/2016 SUBJECTIVE: Danette is an 85-year-old female, and she had loose stools over the weekend. She is postop from 08/19/2016. She is down to 1 stool a day, tolerating the fiber wafers well, on step-2 gastric bypass diet. Vital signs have been stable. She has ambulated 6 times yesterday. Oral intake was 1200. Output recorded 575, but had several times where she has voided and missed the hat in the stool. REVIEW OF SYSTEMS: Remainder of review of systems negative for any pertinent positives and negatives. OBJECTIVE: GENERAL: Danette Bauman is an 85-year-old female. She is alert and orientated. VITAL SIGNS: TPR is 96.7, 73, 16, blood pressure 155/70, O2 is 97% on room air. HEENT: Negative. NECK: Supple. HEART: Regular rate and rhythm. LUNGS: Clear. ABDOMEN: Dressings are dry and intact. Drains have been removed. EXTREMITIES: Without peripheral edema. 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 PLAN: 1. Discharge planning with consultation with daughter in regard to placement after discharge. 2. Dietary consult. 3. We will evaluate p.r.n. or in a.m. Nai Ji PA-C /[id number]
[2016-08-26] MEDS: Inulin 1.5 GM Chewable Tab PO SCH (11:35)
--- NOTE | 2016-08-26 12:22 | PN ---
DATE OF SERVICE: 08/25/2016 The patient has been afebrile with stable vital signs. The stools are slowing down somewhat, and I think we will add some fiber wafers today to help open things up a little bit. Otherwise, she does not want to take the potassium or Neutra-Phos this morning. We will stop those and recheck some labs in the morning. We will remove the MADINA drain up in the area of the gastrojejunostomy, leaving the incision one. We will get the Aquacel dressing off, so she can get in the shower. The plan will be to proceed with a prison transfer tomorrow for brief prison stay for rehabilitation, and also notable, her C. difficile enterotoxin assay was negative. Timi Strong MD /[id number]
--- NOTE | 2016-08-27 09:07 | OR ---
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 POSTOPERATIVE DIAGNOSES: 1. 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 2. Intraperitoneal mesh adherent to small bowel. 3. Recurrent incarcerated incisional hernia. 4. Separate small bowel stricture. OPERATIVE PROCEDURE: Exploratory laparotomy with: 1. Revision of Maricruz-en-Y gastric bypass (both closure of the gastrogastric fistula and revision of jejunojejunostomy) (72665). 2. Removal of intraperitoneal mesh (50447). 3. Small bowel resection (31467). 4. Small bowel stricturoplasty (06468). 5. Repair of recurrent incarcerated incisional hernia (33534). ANESTHESIA: General. CUE WORKER: Nai Ji PA-C. INDICATION FOR PROCEDURE: This is an 85-year-old roughly 40 years status post a Maricruz-en-Y gastric bypass done in [facility], presenting with worsening problems with epigastric discomfort, as well as heartburn-type symptoms. Recent endoscopy revealed a large gastrogastric fistula with bile readily coming up into the gastric pouch and distal esophagus, likely associated with the patient's symptoms. The plan is to proceed with an open laparotomy and takedown of the gastrogastric fistula, and whatever needs to be done in terms of small bowel will be done concurrently. Potential risks of procedure including bleeding, infection, leaks from various GI tract closures, problems with bowel obstruction, as well as possibility of cardiopulmonary, septic, or hemorrhagic complications leading to were discussed, and the patient wishes to proceed. DETAILS OF PROCEDURE: The patient was taken to the room, and after general endotracheal anesthesia was induced, a bilateral subcostal transversus abdominis plane block was placed. This was using solutions on each side with 40 mL of normal saline, ropivacaine, dexamethasone, and epinephrine. After these blocks were placed under direct ultrasound guidance, the Connors catheter was inserted and the abdomen prepped and draped. The previous midline incision was then reused, carried down through the skin and subcutaneous tissue. At the upper extent of some previous mesh, the patient was noted to have an incarcerated recurrent hernia. This contained some incarcerated omentum within it. This was reduced, and some of the hernia sac was sent as specimen. The mesh was then encountered which was an old Sumner-Milton type mesh, and this was felt to need to be removed, as it had some bowel intimately adherent to it, as well as it would be innately contaminated by virtue of the procedure being performed. The mesh was freed up from the wall of the abdomen, leaving as much walker river tissue as possible. Once this mesh was pulled up, some adhesions to the small bowel were noted, but there was an additional segment of bowel that was densely adherent, and this was divided proximally and distally with FRANKLIN alem, as was the underlying mesentery, and that specimen consisting of small bowel and the intraperitoneal mesh was delivered from the field. Some additional adhesions were then taken down and attention was taken up into the area of the Maricruz limb. It was noted the patient had an extremely short Maricruz limb, probably only in the range of 25 cm, and also a quite short biliopancreatic limb, this measuring around 15 cm. As the Maricruz limb was then traced upward toward the gastrojejunostomy, an Ponce tube was placed in per Anesthesia, this being a 32-Moroccan size, across the gastric pouch, and from there through the gastrojejunostomy and several cm into the Maricruz limb. This then allowed us to progressively dissect downward into the area of the gastrojejunostomy, and the stomach was then identified which attached to the fistula. Using serial firings of FRANKLIN black loads, the stomach adherent to the pouch was divided with division of the pouch more or less up against the Ponce tube, thus reducing the pouch size to a more standard size. Once this was completed, there was some ischemic appearance to the stomach, which was then resected as well, and sent as a separate specimen. The jejunojejunostomy at that point was divided with the duodenum being divided off of the bowel, consisting of the Maricruz limb as it went into the common limb. That pancreaticoduodenal limb remained viable. There was a stricture present at the takedown site, and stricturoplasty was then undertaken there with the bowel being flipped over on itself, an opening made at the antimesenteric border, and then FRANKLIN stapler with a schuler load placed into the bowel on each side, fired, thus creating a common opening. The open end was then closed with a purple load. The angles of anastomosis were reinforced with some 3-0 Vicryl stitch. There was no mesenteric defect. At this point, the decision was made to proceed with a Maricruz limb at this time of 150 cm. This was still well above the small bowel resection related to the area that was adherent to the mesh, that anastomosis then giving the patient 150 cm Maricruz limb was then accomplished to the biliopancreatic limb with FRANKLIN schuler load followed by purple load, the angles anastomosed, and the mesenteric defect approximated with 3-0 Vicryl stitch. Finally, the area of the original bowel resection was reconstructed with a [id number] enteroenterostomy, using schuler load internally and purple load at the common opening, and the mesenteric defect and the angles of anastomosis were likewise closed with 3-0 Vicryl stitch. At this point, the abdomen was irrigated with antibiotic-containing saline solution. There was sufficient omentum present to cover the incision. The incision was then closed with a #2 Vicryl stitch, which included repair of the recurrent hernia, as well as the site where the mesh had been removed. There appeared to be some fairly substantial tissue in this area, so, at least for the short term, this will likely hold up. A 10-Moroccan round Christopher- Rivero drain was then placed through a stab wound inferior to the main incision and the incision then closed with a 3-0 Vicryl stitch deep and alem for the skin. One Christopher- Rivero drain had been placed in the left subcostal area up against the area of the gastrojejunostomy, and that drain, along with the wound drain were approximated with some 3- 0 Vicryl stitch. The patient was taken to the recovery room in satisfactory condition. Physician assistant plant control operator, Nai Ji played an essential role in assisting in this case, helping to position the patient, retract structures as needed, and suturing and stapling when indicated. Her presence improved the patient's safety and decreased the operative time. Timi Strong MD /[id number]
--- NOTE | 2016-09-02 12:10 | DISCH ---
FINAL DIAGNOSES: 1. History of Maricruz-en-Y gastric bypass with development of gastrogastric fistula and chronic mild gastritis and reflux esophagitis. 2. Bariatric surgery status. 3. Intraperitoneal mesh adherent to small bowel. 4. Recurrent incarcerated incisional hernia. 5. Small bowel stricture. PROCEDURES: Osteoarthritis, status post right and left total knee arthroscopy and shoulders are repaired x2. OPERATIVE PROCEDURE: This was done on the date of admission 08/19, exploratory laparotomy with: 1. Revision of Maricruz-en-Y gastric bypass (both closure of gastrogastric fistula and revision of jejunojejunostomy). 2. Removal of intraperitoneal mesh. 3. Small bowel resection. 4. Small bowel strictureplasty. 5. Repair of recurrent incarcerated incisional hernia. HOSPITAL COURSE: This is an 85-year-old who roughly is four years status post a Maricruz-en-Y gastric bypass done in the [facility]. She presents with worsening problems with epigastric pain, along with a severe heartburn which was not medically manageable. An upper GI endoscopy, which showed an otherwise intact Maricruz-en-Y gastric bypass, but a large gastrogastric fistula with free flow of bile up into the gastric pouch and esophagus. After discussion of the treatment options, the patient and son wished to proceed with a revision procedure. This was done as an open approach and an open approach was once again used. The patient had some mesh present within the upper abdomen which needed to be removed along with block of portion of small bowel and the gastrogastric fistula was then revised. The Maricruz limb was noted to be strikingly short and given this, the jejunojejunostomy component was revised as well giving a more standard Maricruz limb lengths and after dissection was noted to have stricture of the small bowel which was repaired by strictureplasty and incarcerated incisional hernia noted within the incision, which was concurrently repaired. Postoperatively, the patient initially was quite confused and then upon return of GI tract function had multiple loose stools, both of these problems were actually resolved at the time of discharge and she will be transferred for a temporary half-way placement in [facility] probably in the range of 1-2 weeks and follow up with Dr. Strong and Nai Ji, the next week. Medications are as per the transfer sheet.
== END 2016-08-26 12:15 | DRG 327 ==
LOC: JP.SDS 09:33 → JP.MS 09:33 → UNDOADMIN 13:15 → JP.MS 13:15 → EDSTATUS 13:15 → JP.MS 16:45 → JP.2SS 16:45 → UNDOADMIN 16:45 → UNDODISIN 08-26 12:15
PROVIDERS: ADMIT Surgery; ATTEND Surgery
PROC: 0WQF0ZZ Repair Abdominal Wall, Open Approach (ICD-10-PCS; principal; 2016-08-19)
PROC: 0DB60ZZ Excision of Stomach, Open Approach (ICD-10-PCS; principal; 2016-08-19)
PROC: 0WPF0JZ Removal of Synthetic Substitute from Abdominal Wall, Open Approach (ICD-10-PCS; principal; 2016-08-19)
PROC: 0D160ZA Bypass Stomach to Jejunum, Open Approach (ICD-10-PCS; principal; 2016-08-19)
PROC: 0DBA0ZX Excision of Jejunum, Open Approach, Diagnostic (ICD-10-PCS; principal; 2016-08-19)
DX: K31.6 Fistula of stomach and duodenum (principal); K43.0 Incisional hernia with obstruction, without gangrene; K56.69 Other intestinal obstruction; K29.60 Other gastritis without bleeding; Z98.84 Bariatric surgery status; Z98.0 Intestinal bypass and anastomosis status; E53.8 Deficiency of other specified B group vitamins; M25.50 Pain in unspecified joint; M54.9 Dorsalgia, unspecified; G89.29 Other chronic pain; H91.90 Unspecified hearing loss, unspecified ear; H54.7 Unspecified visual loss; E55.9 Vitamin D deficiency, unspecified; Z96.653 Presence of artificial knee joint, bilateral; R07.89 Other chest pain
CPT/HCPCS: 36415; 71010; 71010-26; 74240; 74240-26; 80053; 82607; 82728; 82746; 82962; 83735; 83880; 84100; 84484; 85027; 86850; 86900; 86901; 87493; 88302; 88307; 88342; 93005; 94762; 97110-GP; 97162-GP; 97530-GP; A9270-GY; C9113; J0694; J1100; J1170; J1200; J1630; J1644; J1940; J2001; J2185; J2310; J2405; J2704; J3010; J3410; J3411; J3420; J3475; J3490; J7030; J7042; J7050; J7120; Q9967

== ENCOUNTER 2016-09-18 11:12 | Day surgery (SDC) | payer MEDICARE, BC ==
[2016-09-18] MEDS ORDERED: Ondansetron 4 MG/2 ML SDV IVPUSH PRN (11:34)
[2016-09-18] MEDS ORDERED: Dextrose 5%-Lactated Ringers 1,000 ML IV SCH (12:00)
[2016-09-18] MEDS ORDERED: Lactated Ringers 1,000 ML IV SCH (12:00)
[2016-09-18] MEDS ORDERED: Propofol 200 MG/20 ML SDV ONE (12:11)
[2016-09-18] MEDS ORDERED: fentaNYL 100 MCG/2 ML SDV ONE (12:12)
[2016-09-18] MEDS ORDERED: Cyanocobalamin (Vitamin B12) 1,000 MCG/ML SDV IM ONE (12:30)
[2016-09-18] MEDS ORDERED: Glycopyrrolate 0.2 MG/ML 2 ML SYRINGE IVPUSH ONE (12:30)
[2016-09-18] MEDS ORDERED: MVI, Adult with Vitamin K 10 ML, Thiamine 200 MG, Chromium/Copper/Mang/Selen/Zn 1 ML in... IV ONE ×4 (13:00)
[2016-09-18 16:02] VITALS: BP 122/63
--- NOTE | 2016-09-24 14:00 | OR ---
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 OPERATIVE PROCEDURE: Upper GI endoscopy with dilation of gastrojejunostomy ([id number]). ANESTHESIA: IV sedation. INDICATIONS FOR PROCEDURE: This is an 85-year-old female status post revision of Maricruz-en-Y gastric bypass on 08/19/2016. She now presents with symptoms suggestive of stricturing at her gastrojejunostomy. The plan is to proceed with upper GI endoscopy with dilation as indicated. Potential risks of the procedure including bleeding and perforation were discussed, and the patient wishes to proceed. DETAILS OF PROCEDURE: The patient was taken to the operating room and placed in a left lateral decubitus position. IV sedation was administered, after which the upper GI endoscope was passed orally through the length of the esophagus and into the gastric pouch. No retained food or fluid was noted. The patient was noted to have both a degree of fibrous structuring and as well appeared to be quite a bit in the way of edema at the gastrojejunostomy. Initially, a 36-Moldovan balloon dilator was placed and inflated. This was then withdrawn. The patient was noted to have a fairly easy passage of the scope through that area and at that point, a 45-Moldovan dilator was felt to be safe and it was likewise centered across the anastomosis and inflated and held for 1 minute, after which the balloon catheter was deflated and withdrawn. The scope was then used to look through the anastomosis once again and no complications were evident. The patient was taken to the recovery room in satisfactory condition. Timi Strong MD /[id number]
== END 2016-09-18 15:55 | disposition home or self-care (01) ==
LOC: JP.SDS 11:12
PROVIDERS: ATTEND Surgery
DX: K91.89 Other postprocedural complications and disorders of digestive system (principal); Z98.84 Bariatric surgery status
CPT/HCPCS: 36415; 43235; 80053; 85027; J2405; J2704; J3010; J3411; J3420; J7120

== ENCOUNTER 2016-09-23 10:09 | Inpatient (IN) | payer MEDICARE, BC ==
[2016-09-23] MEDS ORDERED: Lactated Ringers 1,000 ML IV SCH (10:45)
[2016-09-23] MEDS ORDERED: Cyanocobalamin (Vitamin B12) 1,000 MCG/ML SDV IM ONE (11:00)
[2016-09-23] MEDS ORDERED: Glycopyrrolate 0.2 MG/ML 2 ML SYRINGE IVPUSH ONE (11:30)
[2016-09-23] MEDS ORDERED: MVI, Adult with Vitamin K 10 ML, Thiamine 200 MG, Chromium/Copper/Mang/Selen/Zn 1 ML in... IV ONE ×4 (11:45)
[2016-09-23] MEDS ORDERED: Acetaminophen 325 MG Tab PO PRN (12:20)
[2016-09-23] MEDS ORDERED: Propofol 200 MG/20 ML SDV ONE (13:00)
[2016-09-23] MEDS ORDERED: Dextrose 5%-Lactated Ringers 1,000 ML IV SCH (13:30)
--- NOTE | 2016-09-23 13:51 | HP ---
HISTORY OF PRESENT ILLNESS: Danette has had difficulty with nausea, vomiting, and unable to keep anything down. She had an EGD last week, and she states she felt good for a couple days then she started to feel tight again. Her medications got stuck and everything she ate or drink came back. She had an EGD this morning and will be admitted after her EGD. PAST SURGICAL HISTORY: 1. Maricruz-en-Y gastric bypass surgery, 40 years ago. 2. Bilateral cataract extraction. 3. Appendectomy, 17 years old. 4. Right and left total knee arthroplasties. 5. Right shoulder repair x2. 6. Repair of hernias. PAST MEDICAL HISTORY: Includes Maricruz-en-Y gastric bypass surgery 40 years ago, unspecified surgical malabsorption, B12 deficiency, chronic arthralgias. ALLERGIES: NONE. CURRENT MEDICATIONS: Include multivitamin chewable 1 twice a day, vitamin B12 sublingual daily, tramadol 50 mg every 4 hours p.r.n. pain, Tylenol 650 mg liquid by mouth every 4 hours p.r.n., Zantac 150 mg at bedtime, Prilosec 40 mg p.o. before meals once daily. SOCIAL HISTORY: Lives alone. . Does not smoke. Caffeine small amount of coffee. Alcohol none and carbonation none. FAMILY HISTORY: Noncontributory. Denies any heart, lung, kidney disease, or diabetes. REVIEW OF SYSTEMS: CONSTITUTIONAL: Denies any fever, chills, night sweats. She does report fatigue. Has had a 3 pounds weight loss since last week. Eyes; negative, wears corrective lenses for near and farsightedness. HEENT: Dentures. CARDIOVASCULAR: No chest pain, murmur, fast irregular heart beat. LUNGS: No shortness of breath or cough. GI: Positive for nausea, vomiting, diarrhea. She had a bowel movement yesterday. MUSCULOSKELETAL: Reports stiffness in her knees. SKIN: Negative for any rash or changes in moles. NEURO: No headaches. She does report unsteadiness, dizziness from weakness. PSYCHIATRIC: Negative for anxiety, depression, or insomnia. ENDOCRINE: Positive for fatigue. HEMOLYTIC or LYMPHATIC: No abnormal bleeding, bruising, or lymph node enlargement. REVIEW OF SYSTEMS: Remainder of review of systems negative for any pertinent positives and negatives. OBJECTIVE: GENERAL: Danette Bauman is a pleasant 85-year-old female. She appears weak. WEIGHT and VITAL SIGNS: See EMR. HEENT: Negative. Oral mucosa pink and moist. NECK: Supple. Negative lymphadenopathy and thyromegaly. LUNGS: Clear to auscultation in all four su. HEART: Regular rate and rhythm. ABDOMEN: Soft. Incisions well healed. Minimal midepigastric abdominal pain and tenderness. : Deferred. NEURO: Cranial nerves 2-12 intact. Deep tendon reflexes are 2+ equal bilaterally. MUSCULOSKELETAL: Equal muscle strength in right and left upper and lower extremities. PSYCHIATRIC: Judgment, insight, orientation to time, recent and remote memory, mood and affect appropriate. ASSESSMENT: 1. EGD with dilatation 09/24/2015. 2. Dysphagia, nausea, and vomiting. 3. SP revision of Maricruz-en-Y gastric bypass surgery, closure of gastrogastric fistula, and revision of the jejunostomy, removal of intraperitoneal mesh, small bowel resection, small bowel stricturoplasty, repair of recurrent incarcerated incisional hernia on 08/19/2016. 4. Unspecified surgical malabsorption. 5. B12 deficiency. 6. Chronic arthralgias. PLAN: Admit to short stay. See copy of orders written by Timi Strong MD. Length of stay, two nights and three days based on the patient's condition. Nai Ji PA-C /[id number]
[2016-09-23] MEDS: traMADol 50 MG Tab PO PRN (14:51)
[2016-09-23] MEDS: Magnesium Sulfate/Water 2 GM in Premix Bag 1 BAG IV SCH ×2 (15:00→20:29)
[2016-09-24] MEDS: Magnesium Sulfate/Water 2 GM in Premix Bag 1 BAG IV SCH ×4 (02:56→21:40)
[2016-09-24] MEDS: traMADol 50 MG Tab PO PRN ×2 (03:26→21:40)
[2016-09-24] MEDS: Dextrose 5%-Lactated Ringers 1,000 ML IV SCH (05:51)
[2016-09-24] MEDS: Celecoxib 100 MG Cap PO SCH ×3 (08:58→21:40)
[2016-09-24] MEDS: Potassium Phosphates 15 MMOLE in Sodium Chloride 0.9% 150 ML IV SCH ×2 (10:22→14:15)
[2016-09-25] MEDS: Magnesium Sulfate/Water 2 GM in Premix Bag 1 BAG IV SCH ×4 (03:43→20:43)
[2016-09-25] MEDS: Celecoxib 100 MG Cap PO SCH ×2 (09:14→20:34)
[2016-09-25] MEDS: Dextrose 5%-Lactated Ringers 1,000 ML IV SCH (16:28)
[2016-09-25] MEDS: traMADol 50 MG Tab PO PRN (19:41)
--- NOTE | 2016-09-25 20:09 | PN ---
DATE OF SERVICE: 09/25/2016 SUBJECTIVE: Danette is feeling stronger. Her vital signs have been stable. Her oral intake was 780 and her output was 1700. She ate for her 3 meals 30%, 20%, and 10%. She did have a bowel movement. She does get up with assist of one. Discharge planning is working with her. OBJECTIVE: GENERAL: Danette Bauman is an 85-year-old female. VITAL SIGNS: TPR is 96.3, 76, 16, blood pressure is 108/85. HEENT: Negative. NECK: Supple. HEART: Regular rate and rhythm. LUNGS: Clear. ABDOMEN: Soft, nontender. EXTREMITIES: With minimal peripheral edema. NEUROLOGIC: Intact. SKIN: Without rash, but pale. ASSESSMENT: 1. Esophagogastroduodenoscopy with dilatation on 09/24/2015. 2. Dysphagia, nausea, vomiting, dehydration, and weakness. 3. Status post revision of Maricruz-en-Y gastric bypass surgery, closure of gastrogastric fistula, and revision of jejunostomy, removal of intraperitoneal mesh, small bowel resection, small bowel stricturoplasty, repair of recurrent incarcerated incisional hernia on 08/20/2011. 4. Unspecified surgical malabsorption. 5. B12 deficiency. PLAN: Discharge planning to be involved in her discharge plan. Her daughter and son are there. Recommend increasing liquids and food intake prior to discharge. [place] protein drinks were ordered 4 times a day and at bedtime. Megace 40 mg b.i.d. orally. Good pulmonary toilet encouraged. We will evaluate p.r.n. or in a.m. Nai Ji PA-C /[id number]
[2016-09-25] MEDS ORDERED: Megestrol 40 MG Tab PO SCH (21:00)
[2016-09-26] MEDS: Magnesium Sulfate/Water 2 GM in Premix Bag 1 BAG IV SCH ×2 (02:31→08:35)
[2016-09-26] MEDS: traMADol 50 MG Tab PO PRN (05:47)
[2016-09-26 07:39] VITALS: BP 98/67
[2016-09-26] MEDS: Celecoxib 100 MG Cap PO SCH (08:35)
--- NOTE | 2016-09-27 01:18 | DISCH ---
ADMISSION DIAGNOSES: 1. Dehydration, nausea, vomiting, weakness, and dysphagia. 2. Status post revision of Maricruz-en-Y gastric bypass surgery, closure of gastrogastric fistula, and revision of jejunostomy, removal of intraperitoneal mesh, small bowel resection, small bowel strictureplasty, and repair of recurrent incarcerated incisional hernia on 08/19/2016. 3. Unspecified surgical malabsorption. 4. B12 deficiency. 5. Chronic arthralgias. DISCHARGE DIAGNOSES: EGD with dilatation 09/24/2015, resolution of dysphagia, nausea, and vomiting. HISTORY: Danette Bauman is an 85-year-old female. She had a revision of her Maricruz-en-Y gastric bypass surgery on 08/19/2016. She presented to [facility] for an EGD with dilatation on 09/24/2015. She was unable to be discharged to home due to severe weakness, persistent nausea and vomiting. HOSPITAL COURSE: Danette had her EGD with dilatation on 09/24/2015. She had no complications. She was given adequate fluids and her intake was increased daily with much encouragement. She was able to be discharged to home on 09/26/2016. PHYSICAL EXAMINATION: GENERAL: Danette is an 85-year-old female. VITAL SIGNS: Height is 5 feet, weight is 167. BMI is 32. TPR is 96.4, 82, 16. Blood pressure 98/67. O2 by pulse oximetry is 94%. HEENT: Negative. NECK: Supple. HEART: Regular rate and rhythm. LUNGS: Clear. ABDOMEN: Soft, nontender. Well-healed Laparoscopy incision. EXTREMITIES: Without peripheral edema. DISPOSITION: Discharged to home. CONDITION: Stable and improving. FOLLOWUP APPOINTMENT: With Nai Ji PA-C, on 10/02/2016 at 11 a.m. HOME MEDICATIONS: Megace 40 mg p.o. b.i.d. #60, Zofran ODT 4 mg p.o. q.6 hours p.r.n. nausea #30, tramadol 50 mg q.6 hours p.r.n. severe pain #30. She is to resume her home medication, multivitamin chewable complete twice daily, Tylenol 650 mg every 6 hours as needed for lesser pain, and Children's chewable complete multivitamin one tablet twice daily, and B12 1000 mcg sublingual daily. DIET: After discharge, step-2 gastric bypass diet with cereal. She is to have protein supplements three times a day and drink 8 to 10 glasses of water a day. ACTIVITY: Walk short distance inside your home 6 times daily. May shower. Notify provider if any nausea or vomiting.
--- NOTE | 2016-09-29 14:26 | OR ---
DATE OF PROCEDURE: 09/23/2016 PREOPERATIVE DIAGNOSIS: Possible stricture at gastrojejunostomy. 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 OPERATIVE PROCEDURE: Upper GI endoscopy with dilation of gastrojejunostomy. ANESTHESIA: IV sedation. INDICATION FOR PROCEDURE: This is an 85-year-old status post revision of Maricruz-en-Y gastric bypass, presenting with dehydration and complains of inability to take much in orally. The plan is to proceed with an upper GI endoscopy with dilation as indicated. Potential risks including bleeding and perforation were discussed, and the patient wishes to proceed. DETAILS OF PROCEDURE: The patient was taken to the operating room and placed in a left lateral decubitus position. IV sedation was administered, after which the upper GI endoscope was passed orally through the length of the esophagus and into the gastric pouch. The patient was noted to have minimal stricture. The scope was able to be passed through the area of the anastomosis, and beyond that, no abnormalities were noted. Bard gastrointestinal balloon catheter was then centered across the anastomosis. This was inflated to 45-Lebanese size and held in position for 1 minute, after which the balloon catheter was deflated and withdrawn. This resulted in a very slight additional dilation. No complications were noted and the procedure then concluded. The patient was taken to the recovery room in satisfactory condition. Timi Strong MD /[id number]
--- NOTE | 2016-09-30 12:20 | PN ---
DATE OF SERVICE: 09/24/2016 The patient has been afebrile with stable vital signs. Oral intake has remained fairly poor. She was essentially open yesterday based on her endoscopy. We will work on oral intake today with full liquid diet. She does have some arthritic pain and we will start her on Celebrex 100 mg b.i.d. The phosphate is marginally low, so we will supplement that. The patient is adamant that she does not want to go to the assisted, so will work on what the home needs are with discharge planning today and encourage increased activity and diet. Dietitian will also be visiting with the patient today. Timi Strong MD /[id number]
== END 2016-09-26 09:35 | disposition home or self-care (01) | DRG 392 ==
LOC: JP.SDSSCHI 10:09 → JP.SDS 10:09 → EDSTATUS 14:00 → JP.MS 15:15
PROVIDERS: ADMIT Surgery; ATTEND Surgery
PROC: 0D768ZZ Dilation of Stomach, Via Natural or Artificial Opening Endoscopic (ICD-10-PCS; principal; 2016-09-23)
PROC: 0D7A8ZZ Dilation of Jejunum, Via Natural or Artificial Opening Endoscopic (ICD-10-PCS; 2016-09-23)
DX: R13.10 Dysphagia, unspecified (principal); K91.2 Postsurgical malabsorption, not elsewhere classified; E86.0 Dehydration; R11.2 Nausea with vomiting, unspecified; R53.1 Weakness; Z98.84 Bariatric surgery status; E53.8 Deficiency of other specified B group vitamins; M19.90 Unspecified osteoarthritis, unspecified site; Z79.899 Other long term (current) drug therapy
CPT/HCPCS: 36415; 80053; 81001; 83735; 83880; 84100; 85027; A9270-GY; J2704; J3411; J3420; J3475; J3490; J7040; J7042; J7120

== ENCOUNTER 2016-10-04 14:29 | Observation (INO) | payer MEDICARE, BC ==
[2016-10-04] MEDS ORDERED: Sodium Chloride 0.9% 1,000 ML IV ONE (15:21)
[2016-10-04] MEDS ORDERED: Ondansetron 4 MG/2 ML SDV IVPUSH ONE (15:21)
[2016-10-04] MEDS ORDERED: Morphine 4 MG/ML Syringe IVPUSH ONE (15:21)
[2016-10-04] MEDS ORDERED: Sodium Chloride 0.9% 10 ML Syringe FLUSH PRN ×3 (15:22→19:49)
--- NOTE | 2016-10-04 15:29 | EDM.PDOC ---
ED HPI GENERAL MEDICAL PROBLEM - General Chief Complaint: Gastrointestinal Problem Stated Complaint: DEHYDRATED Time Seen by Provider: 10/04/16 15:15 Source of Information: Reports: Patient, Family History Limitations: Reports: No Limitations - History of Present Illness INITIAL COMMENTS - FREE TEXT/NARRATIVE: Danette is an 85 year old female who presents to the ED today with c/o epigastric pain, nausea, and constipation. Patient reports her pain and nausea started this morning. Patient has not had a bowel movement since last Friday. Patient denies any vomiting. Patient denies any fever. Unable to really drink any fluids today secondary to nausea which was unrelieved with Zofran at home. Patient has extensive abdominal hx with Revision of Maricruz-en-Y with closure of gastrogastric fistula and revision of jejunostomy with removal of intraperitoneal mesh and small bowel resection, small strictureplasty and repair of recurrent incarcerated incisional hernia on 08/19/2016 with EGD and dilatation on 09/23/2016 with resolution of dysphagia, nausea, and vomiting. Patient denies any post procedure complications. She denies any fever/chills. Patient reports she is generally feeling weak today. Duration: Day(s): (1) Denies Pain Score (Numeric/FACES): 0 - Related Data Allergies Allergy/AdvReac Type Severity Reaction Status Date / Time No Known Allergies Allergy Verified 10/04/16 14:59 Home Meds: Home Meds Acetaminophen [Tylenol] 650 mg PO Q6H PRN 09/18/16 [History] Cyanocobalamin (Vitamin B12) [Vitamin B12] 1,000 mcg PO DAILY 09/18/16 [History] Multivitamin with Minerals [Multiple Vitamin] 1 tab PO DAILY 09/18/16 [History] Pediatric Multivit #17/Iron [Children's Chewables] 1 tab PO DAILY 09/18/16 [ History] Ondansetron [Zofran ODT] 4 mg PO Q6H PRN #30 tab.dis 09/26/16 [Rx] traMADol [Ultram] 50 mg PO Q4H PRN #30 tablet 09/26/16 [Rx] Past Medical History HEENT History: Reports: Cataract, Hard of Hearing, Impaired Vision Other HEENT History: wears glasses Cardiovascular History: Reports: SOB on Exertion, Syncope Gastrointestinal History: Reports: Cholelithiasis, Chronic Constipation, Gastritis, [employer] History: Reports: Musculoskeletal History: Reports: Arthritis, Back Pain, Chronic, Fracture Other Musculoskeletal History: rib fx 2 different times Neurological History: Reports: Headaches, Chronic Endocrine/Metabolic History: Reports: Obesity/BMI 30+, Vitamin D Deficiency Dermatologic History: Reports: None - Infectious Disease History Infectious Disease History: Reports: Chicken Pox, Measles - Past Surgical History HEENT Surgical History: Reports: Cataract Surgery GI Surgical History: Reports: Appendectomy, Bariatric Procedure, Cholecystectomy , Colonoscopy, EGD, Hernia, Abdominal, Obed Fundoplication, Other (See Below) Musculoskeletal Surgical History: Reports: Arthroscopic Knee, Arthroscopic Procedure, Shoulder Surgery Other Musculoskeletal Surgeries/Procedures:: Bilateral knee surgery Dermatological Surgical History: Reports: Skin Biopsy Social & Family History - Family History Family Medical History: Noncontributory Cardiac: Reports: CAD, [place] Neurological: Reports: Parkinson's Oncologic: Reports: Lymphoma - Tobacco Use Smoking Status *Q: Never Smoker Second Hand Smoke Exposure: No - Caffeine Use Caffeine Use: Reports: Coffee, Energy Drinks - Alcohol Use Days Per Week of Alcohol Use: 0 - Recreational Drug Use Recreational Drug Use: No ED ROS GENERAL - Review of Systems Review Of Systems: See Below Constitutional: Reports: Weakness, Decreased Appetite HEENT: Reports: No Symptoms Respiratory: Reports: No Symptoms Cardiovascular: Reports: No Symptoms Endocrine: Reports: No Symptoms GI/Abdominal: Reports: Abdominal Pain, Constipation, Decreased Appetite, Nausea : Reports: No Symptoms Musculoskeletal: Reports: No Symptoms Skin: Reports: No Symptoms, Other Neurological: Reports: No Symptoms Psychiatric: Reports: No Symptoms Hematologic/Lymphatic: Reports: No Symptoms Immunologic: Reports: No Symptoms ED EXAM, GI/ABD - Physical Exam Exam: See Below Exam Limited By: No Limitations General Appearance: Alert, Other (Pale, mild distress secondary to nausea) Ears: Normal External Exam Nose: Normal Inspection, Normal Mucosa Throat/Mouth: Normal Inspection, Normal Oropharynx Head: Atraumatic Neck: Normal Inspection Respiratory/Chest: No Respiratory Distress, Lungs Clear, Normal Breath Sounds Cardiovascular: Normal Peripheral Pulses, Regular Rate, Rhythm, No Murmur GI/Abdominal: Normal Bowel Sounds, Soft, No Distention, Other (Tenderness to mid epigastric region on exam. Healing midline ventral abdominal wound) Extremities: Normal Inspection Neurological: Alert, Oriented Lymphatic: No Adenopathy Course - Vital Signs Text/Narrative:: Danette is a 85 year old female with extensive abdominal hx including Maricruz-en-y recent EGD and dilitation. Patient is a patient of DR. Strong here at [facility]. Please refer to HPI and focused exam. Concerns initially given patient's constipation and recent onset of severe nausea for SBO. PIV established and patient given a liter of NS here in the ED with IV zofran. Patient was given a small dose of Morphine for abdominal pain. Blood work today is reassuring with normal white count and stable HGB. CMP returns with sodium of 138 and a anion gap of 14.2. Renal and LFT's are within normal limits. CT scan obtained and is negative for SBO. No other acute findings on CT to indicate patient's symptoms. UA is negative for infection. I discussed patient with Dr. Strong who would like patient to be admitted for hydration and ongoing nausea control. Patient was given a bottle of mag citrate here for her constipation. Patient was staffed with Dr. Bejarano, hospitalist for observation admission. Patient and her son are agreeable to plan of care. Last Recorded V/S: Last Vital Signs Temp 35.9 C 10/04/16 15:10 Pulse 84 10/04/16 17:54 Resp 14 10/04/16 17:54 BP 136/61 10/04/16 17:54 Pulse Ox 96 10/04/16 17:54 - Orders/Labs/Meds Orders: Active Orders 24 hr Category Date Time Status Peripheral IV Care [RC] . DIRECTED Care 10/04/16 15:22 Active Abdomen Pelvis w Cont [CT] Stat Exams 10/04/16 16:15 Taken Sodium Chloride 0.9% [Saline Flush] Med 10/04/16 15:22 Active 10 ml FLUSH ASDIRECTED PRN Sodium Chloride 0.9% [Saline Flush] Med 10/04/16 16:22 Active 10 ml FLUSH ONETIME PRN Peripheral IV Insertion Adult [OM.PC] Routine Oth 10/04/16 15:22 Ordered Medication Orders Sodium Chloride (Saline Flush) 10 ml FLUSH ASDIRECTED PRN PRN Reason: Keep Vein Open Sodium Chloride (Saline Flush) 10 ml FLUSH ONETIME PRN PRN Reason: PER RADIOLOGY PROTOCOL Last Admin: 10/04/16 16:32 Dose: 10 ml Labs: Laboratory Tests 10/04/16 10/04/16 10/04/16 Range/Units 15:22 15:22 17:57 WBC 6.1 (4.5-11.0) K/uL RBC 4.89 (3.30-5.50) M/uL Hgb 14.1 (12.0-15.0) g/dL Hct 42.5 (36.0-48.0) % MCV 87 (80-98) fL MCH 29 (27-31) pg MCHC 33 (32-36) % Plt Count 282 (150-400) K/uL Neut % (Auto) 58 (36-66) % Lymph % (Auto) 25 (24-44) % [place] % (Auto) 15 H (2-6) % Eos % (Auto) 2 (2-4) % Baso % (Auto) 1 (0-1) % Sodium 138 L (140-148) mmol/L Potassium 4.2 (3.6-5.2) mmol/L Chloride 106 (100-108) mmol/L Carbon Dioxide 22 (21-32) mmol/L Anion Gap 14.2 H (5.0-14.0) mmol/L BUN 13 (7-18) mg/dL Creatinine 0.9 (0.6-1.0) mg/dL Est Cr Clr Drug Dosing 33.42 mL/min Estimated GFR (MDRD) 60 (>60) Glucose 84 (74-106) mg/dL Calcium 9.7 (8.5-10.1) mg/dL Total Bilirubin 0.8 (0.2-1.0) mg/dL AST 19 (15-37) U/L ALT 24 (12-78) U/L Alkaline Phosphatase 69 (46-116) U/L Total Protein 6.9 (6.4-8.2) g/dL Albumin 3.2 L (3.4-5.0) g/dL Globulin 3.7 H (2.3-3.5) g/dL Albumin/Globulin Ratio 0.9 L (1.2-2.2) Lipase 150 (73-393) U/L Urine Color Yellow Urine Appearance Clear Urine pH 6.5 (4.5-8.0) Ur Specific [place] 1.010 (1.008-1.030) Urine Protein Negative (NEGATIVE) mg/dL Urine Glucose (UA) Normal (NEGATIVE) mg/dL Urine Ketones Negative (NEGATIVE) mg/dL Urine Occult Blood Negative (NEGATIVE) Urine Nitrite Negative (NEGATIVE) Urine Bilirubin Negative (NEGATIVE) Urine Urobilinogen 1 (NORMAL) mg/dL Ur Leukocyte Esterase Negative (NEGATIVE) Urine RBC 0-5 (0-5) Urine WBC 0-5 (0-5) Ur Epithelial Cells Few Amorphous Sediment Rare Urine Bacteria Few Urine Mucus Not seen Meds: Medications Generic Name Dose Route Start Last Admin Trade Name Freq PRN Reason Stop Dose Admin Sodium Chloride 10 ml 10/04/16 15:22 Saline Flush FLUSH ASDIRECTED PRN Keep Vein Open Sodium Chloride 10 ml 10/04/16 16:22 10/04/16 16:32 Saline Flush FLUSH 10 ml ONETIME PRN Administration PER RADIOLOGY PROTOCOL Discontinued Medications Generic Name Dose Route Start Last Admin Trade Name Freq PRN Reason Stop Dose Admin Sodium Chloride 1,000 mls @ 500 mls/min 10/04/16 15:21 10/04/16 15:40 Normal Saline IV 10/04/16 15:22 500 mls/min .BOLUS ONE Administration Sodium Chloride 75 mls @ 3 mls/sec 10/04/16 16:22 10/04/16 16:32 Normal Saline IV 10/04/16 16:23 3 mls/sec ONETIME ONE Administration Iopamidol 100 ml 10/04/16 16:22 10/04/16 16:32 Isovue-300 (61%) IV 10/04/16 16:23 100 ml . DIRECTED PRN Administration RADIOLOGY EXAM Magnesium Citrate 296 ml 10/04/16 17:53 Citrate Of Magnesia PO 10/04/16 17:54 ONETIME ONE Morphine Sulfate 4 mg 10/04/16 15:21 10/04/16 15:49 Morphine IVPUSH 10/04/16 15:22 4 mg ONETIME ONE Administration Ondansetron HCl 4 mg 10/04/16 15:21 10/04/16 15:48 Zofran IVPUSH 10/04/16 15:22 4 mg ONETIME ONE Administration Departure - Departure Time of Disposition: 19:00 Disposition: Admitted As Inpatient 67 Condition: good Clinical Impression: Dehydration, Nausea Constipation Qualifiers: Constipation type: slow transit constipation Qualified Code(s): K59.01 - Slow transit constipation - Discharge Information Referrals: Stas oT MD [Primary Care Provider] - Forms: ED Department Discharge - My Orders Last 24 Hours: My Active Orders 10/04/16 15:22 Peripheral IV Care [RC] . DIRECTED Sodium Chloride 0.9% [Saline Flush] 10 ml FLUSH ASDIRECTED PRN Peripheral IV Insertion Adult [OM.PC] Routine 10/04/16 16:15 Abdomen Pelvis w Cont [CT] Stat 10/04/16 16:22 Sodium Chloride 0.9% [Saline Flush] 10 ml FLUSH ONETIME PRN - Assessment/Plan Last 24 Hours: My Active Orders 10/04/16 15:22 Peripheral IV Care [RC] . DIRECTED Sodium Chloride 0.9% [Saline Flush] 10 ml FLUSH ASDIRECTED PRN Peripheral IV Insertion Adult [OM.PC] Routine 10/04/16 16:15 Abdomen Pelvis w Cont [CT] Stat 10/04/16 16:22 Sodium Chloride 0.9% [Saline Flush] 10 ml FLUSH ONETIME PRN
[2016-10-04] MEDS ORDERED: Sodium Chloride 0.9% 75 ML IV ONE (16:22)
[2016-10-04] MEDS ORDERED: Iopamidol 612 MG/ML 100 ML Bottle IV PRN (16:22)
[2016-10-04] MEDS ORDERED: Magnesium Citrate Solution 296 ML Bottle PO ONE (17:53)
--- NOTE | 2016-10-04 19:06 | PCM.HP ---
H&P History of Present Illness - General Date of Service: 10/04/16 Admit Problem/Dx: Admission Diagnosis/Problem Admission Diagnosis/Problem Nausea and vomiting Source of Information: Patient, Old Records, Provider, RN Notes Reviewed History Limitations: Reports: No Limitations - History of Present Illness Initial Comments - Free Text/Narative: This patient is an 85-year-old woman who is admitted through the emergency department for further evaluation and management of abdominal pain, nausea vomiting, and constipation. She is status post revision of gastric bypass surgery done in August of this year. She has had previous EGD for dilatation of stricture and then was admitted to this facility approximately 10 days ago because of nausea vomiting requiring further EGD and dilatation. She felt well until the past 24 hours when she has developed supraumbilical abdominal pain associated with nausea and vomiting. Pain has improved since she's been in the emergency department. She also reports that she has not had a bowel movement now for [address] scan of the abdomen was obtained and did show stool within the colon as well as an abnormality of the stomach that was not further defined are specified. Laboratory studies are unremarkable and there is no obvious evidence of other underlying infection. Denies Pain Score (Numeric/FACES): 0 - Related Data Allergies/Adverse Reactions: Allergies Allergy/AdvReac Type Severity Reaction Status Date / Time No Known Allergies Allergy Verified 10/04/16 14:59 Home Medications: Home Meds Acetaminophen [Tylenol] 650 mg PO Q6H PRN 09/18/16 [History] Cyanocobalamin (Vitamin B12) [Vitamin B12] 1,000 mcg PO DAILY 09/18/16 [History] Multivitamin with Minerals [Multiple Vitamin] 1 tab PO DAILY 09/18/16 [History] Pediatric Multivit #17/Iron [Children's Chewables] 1 tab PO DAILY 09/18/16 [ History] Ondansetron [Zofran ODT] 4 mg PO Q6H PRN #30 tab.dis 09/26/16 [Rx] traMADol [Ultram] 50 mg PO Q4H PRN #30 tablet 09/26/16 [Rx] Past Medical History HEENT History: Reports: Cataract, Hard of Hearing, Impaired Vision Other HEENT History: wears glasses Cardiovascular History: Reports: SOB on Exertion, Syncope Gastrointestinal History: Reports: Cholelithiasis, Chronic Constipation, Gastritis, GERD [employer]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: Musculoskeletal History: Reports: Arthritis, Back Pain, Chronic, Fracture Other Musculoskeletal History: rib fx 2 different times Neurological History: Reports: Headaches, Chronic Endocrine/Metabolic History: Reports: Obesity/BMI 30+, Vitamin D Deficiency Dermatologic History: Reports: None - Infectious Disease History Infectious Disease History: Reports: Chicken Pox, Measles - Past Surgical History HEENT Surgical History: Reports: Cataract Surgery GI Surgical History: Reports: Appendectomy, Bariatric Procedure, Cholecystectomy , Colonoscopy, EGD, Hernia, Abdominal, Obed Fundoplication, Other (See Below) Musculoskeletal Surgical History: Reports: Arthroscopic Knee, Arthroscopic Procedure, Shoulder Surgery Other Musculoskeletal Surgeries/Procedures:: Bilateral knee surgery Dermatological Surgical History: Reports: Skin Biopsy Social & Family History - Family History Family Medical History: Noncontributory Cardiac: Reports: CAD, [place] Neurological: Reports: Parkinson's Oncologic: Reports: Lymphoma - Tobacco Use Smoking Status *Q: Never Smoker Second Hand Smoke Exposure: No - Caffeine Use Caffeine Use: Reports: Coffee, Energy Drinks - Alcohol Use Days Per Week of Alcohol Use: 0 - Recreational Drug Use Recreational Drug Use: No H&P Review of Systems - Review of Systems: Review Of Systems: See Below General: Reports: Weakness. Denies: Fever, Chills HEENT: Reports: No Symptoms Pulmonary: Reports: No Symptoms Cardiovascular: Reports: No Symptoms Gastrointestinal: Reports: Abdominal Pain, Constipation, Distension, Nausea, Vomiting. Denies: Black Stool, Bloody Stool, Difficulty Swallowing Genitourinary: Reports: No Symptoms Musculoskeletal: Reports: No Symptoms Skin: Reports: No Symptoms Psychiatric: Reports: No Symptoms Neurological: Reports: No Symptoms Hematologic/Lymphatic: Reports: No Symptoms Immunologic: Reports: No Symptoms Exam - Exam Exam: See Below - Vital Signs Vital Signs: Last Vital Signs Temp 96.7 F 10/04/16 15:10 Pulse 67 10/04/16 18:57 Resp 14 10/04/16 17:54 BP 102/45 L 10/04/16 18:57 Pulse Ox 92 L 10/04/16 18:57 Weight: 168 lb 6.931 oz - Exam Quality Assessment: DVT Prophylaxis General: Alert, Oriented, Cooperative, Mild Distress HEENT: Conjunctiva Clear, EOMI, Nares Patent, Normal Nasal Septum, Posterior Pharynx Clear, Pupils Equal, Pupils Reactive. No: Hearing Intact, Mucosa Moist & [place] Neck: Supple, Trachea Midline, 2 Lungs: Clear to Auscultation, Normal Respiratory Effort Cardiovascular: Regular Rate, Regular Rhythm, Normal S1, Normal S2. No: Systolic Murmur, Diastolic Murmur Abdomen: Normal Bowel Sounds, Soft, Distention, Tenderness. No: Organomegaly, Peritoneal Signs, Guarding, Rigidity, Rebound Back Exam: Normal Inspection, Full Range of Motion, NT Extremities: 3, Normal Inspection, 10 Skin: Warm, Dry, Intact Neurological: Cranial Nerves Intact, Strength Equal Bilateral, Normal Speech, Normal Tone, Sensation Intact. No: Focal Deficit Neuro Extensive - Mental Status: Alert, Oriented x3, Normal Mood/Affect, Normal Cognition, Memory Intact - Patient Data Lab Results last 24 hrs: Laboratory Results - last 24 hr 10/04/16 10/04/16 10/04/16 Range/Units 15:22 15:22 17:57 WBC 6.1 (4.5-11.0) K/uL RBC 4.89 (3.30-5.50) M/uL Hgb 14.1 (12.0-15.0) g/dL Hct 42.5 (36.0-48.0) % MCV 87 (80-98) fL MCH 29 (27-31) pg MCHC 33 (32-36) % Plt Count 282 (150-400) K/uL Neut % (Auto) 58 (36-66) % Lymph % (Auto) 25 (24-44) % Boyd % (Auto) 15 H (2-6) % Eos % (Auto) 2 (2-4) % Baso % (Auto) 1 (0-1) % Sodium 138 L (140-148) mmol/L Potassium 4.2 (3.6-5.2) mmol/L Chloride 106 (100-108) mmol/L Carbon Dioxide 22 (21-32) mmol/L Anion Gap 14.2 H (5.0-14.0) mmol/L BUN 13 (7-18) mg/dL Creatinine 0.9 (0.6-1.0) mg/dL Est Cr Clr Drug Dosing 33.42 mL/min Estimated GFR (MDRD) 60 (>60) Glucose 84 (74-106) mg/dL Calcium 9.7 (8.5-10.1) mg/dL Total Bilirubin 0.8 (0.2-1.0) mg/dL AST 19 (15-37) U/L ALT 24 (12-78) U/L Alkaline Phosphatase 69 (46-116) U/L Total Protein 6.9 (6.4-8.2) g/dL Albumin 3.2 L (3.4-5.0) g/dL Globulin 3.7 H (2.3-3.5) g/dL Albumin/Globulin Ratio 0.9 L (1.2-2.2) Lipase 150 (73-393) U/L Urine Color Yellow Urine Appearance Clear Urine pH 6.5 (4.5-8.0) Ur Specific [place] 1.010 (1.008-1.030) Urine Protein Negative (NEGATIVE) mg/dL Urine Glucose (UA) Normal (NEGATIVE) mg/dL Urine Ketones Negative (NEGATIVE) mg/dL Urine Occult Blood Negative (NEGATIVE) Urine Nitrite Negative (NEGATIVE) Urine Bilirubin Negative (NEGATIVE) Urine Urobilinogen 1 (NORMAL) mg/dL Ur Leukocyte Esterase Negative (NEGATIVE) Urine RBC 0-5 (0-5) Urine WBC 0-5 (0-5) Ur Epithelial Cells Few Amorphous Sediment Rare Urine Bacteria Few Urine Mucus Not seen Result Diagrams: 10/04/16 15:22 10/04/16 15:22 *Q Meaningful Use (ADM) - VTE *Q VTE Criteria *Q: - VTE Risk Assess *Q Each Risk Factor Represents 1 Point: None, Obesity (BMI greater than 30) Total Score 1 Point Risk Factors: 1 Each Risk Factor Represents 2 Points: None Total Score 2 Point Risk Factors: 0 Each Risk Factor Represents 3 Points: Age 75 Years or Greater Total Score 3 Point Risk Factors: 3 Each Risk Factor Represents 5 Points: None Total Score 5 Point Risk Factors: 0 Venous Thromboembolism Risk Factor Score *Q: 4 - Stroke *Q Stroke Criteria *Q: - AMI *Q AMI Criteria *Q: Problem List Initiated/Reviewed/Updated: Yes Orders Last 24hrs: Active Orders 24 hr Category Date Time Status Patient Status Manage Transfer [TRANSFER] Routine ADT 10/04/16 18:50 Ordered Peripheral IV Care [RC] . DIRECTED Care 10/04/16 15:22 Active Abdomen Pelvis w Cont [CT] Stat Exams 10/04/16 16:15 Taken Sodium Chloride 0.9% [Saline Flush] Med 10/04/16 15:22 Active 10 ml FLUSH ASDIRECTED PRN Sodium Chloride 0.9% [Saline Flush] Med 10/04/16 16:22 Active 10 ml FLUSH ONETIME PRN Peripheral IV Insertion Adult [OM.PC] Routine Oth 10/04/16 15:22 Ordered Resuscitation Status Routine Resus Stat 10/04/16 18:52 Ordered Medication Orders Sodium Chloride (Saline Flush) 10 ml FLUSH ASDIRECTED PRN PRN Reason: Keep Vein Open Sodium Chloride (Saline Flush) 10 ml FLUSH ONETIME PRN PRN Reason: PER RADIOLOGY PROTOCOL Last Admin: 10/04/16 16:32 Dose: 10 ml Assessment/Plan Comment:: ASSESSMENT AND PLAN NAUSEA AND VOMITING-likely secondary to constipation versus gastric abnormality identified on CT scan -Antiemetic therapy as needed -Pain medication as needed -IV fluids for hydration -N.p.o. -Protonix 40 mg IV twice daily -Consult Dr. Strong for surgical opinion and to assume care in a.m. CONSTIPATION-may be a contributing factor to current nausea and vomiting as well as abdominal pain. -Magnesium citrate as ordered in the ED -Dulcolax suppository -Fleet enema if no results from suppository GASTRIC ABNORMALITY IDENTIFIED ON CT SCAN -Further evaluation and management or Dr. Strong STATUS POST REVISION OF SHEELA-EN-Y GASTRIC BYPASS SURGERY MAINTENANCE ISSUES -DVT prophylaxis; SCUDs, hold on anticoagulation pending probable procedures -GI prophylaxis; Protonix as above -Connors catheter; not indicated -Nutrition; n.p.o. -Nicotinic dependence; not required CODE STATUS-FULL CODE ADMISSION STATUS-this patient will be admitted to observation status, expect no more than a one night hospital stay for evaluation and management of problems as outlined above. DISPOSITION-anticipate discharge to home after the hospital stay. PRIMARY CARE PROVIDER-Dr. To
[2016-10-04] MEDS ORDERED: Polyethylene Glycol 3350 Powder 17 GM Packet PO PRN (19:49)
[2016-10-04] MEDS ORDERED: Acetaminophen 325 MG Tab PO PRN (19:49)
[2016-10-04] MEDS ORDERED: Magnesium Hydroxide 400 MG/5 ML Susp 30 ML Cup PO PRN (19:49)
[2016-10-04] MEDS ORDERED: Bisacodyl 10 MG Supp RECTAL ONE (19:49)
[2016-10-04] MEDS ORDERED: Ondansetron 4 MG/2 ML SDV IV PRN (19:49)
[2016-10-04] MEDS ORDERED: Sodium Phosphate,Monobasic/Sodium Phosphate,Dibasic Enema 133 ML Bottle RECTAL PRN (19:49)
[2016-10-04] MEDS ORDERED: Lactated Ringers 1,000 ML IV SCH (19:49)
[2016-10-04] MEDS ORDERED: traMADol 50 MG Tab PO PRN (19:49)
[2016-10-04] MEDS ORDERED: Docusate Sodium 100 MG Cap PO PRN (19:49)
[2016-10-04] MEDS ORDERED: HYDROmorphone 0.5 MG/0.5 ML Syringe IVPUSH PRN (19:57)
[2016-10-04] MEDS: Pantoprazole 40 MG Vial IV SCH (20:56)
[2016-10-05] MEDS: Pantoprazole 40 MG Vial IV SCH (08:23)
[2016-10-05 09:17] VITALS: BP 124/68
[2016-10-05] MEDS ORDERED: Magnesium Citrate Solution 296 ML Bottle PO ONE (10:00)
--- NOTE | 2016-10-06 12:49 | DISCH ---
FINAL DIAGNOSES: 1. Dehydration. 2. Marked constipation. 3. Status post recent revision Maricruz-en-Y gastric bypass. OPERATIVE PROCEDURES: None. HOSPITAL COURSE: This is an 85-year-old female, recently status post revision of Maricruz-en-Y gastric bypass. She has had some problems with adequate oral intake and then came in with dehydration and abdominal pain. The abdominal pain appeared to be related to marked constipation. She was given some magnesium citrate as well as Dulcolax suppository and milk of magnesia overnight and now is moving bowels twice and is fairly good. DISCHARGE INSTRUCTIONS: She will be discharged home on a regular diet. We will start her on Senna Plus two tablets daily as well as magnesium citrate p.r.n. Otherwise, should continue present home medications. Followup with [facility] on 10/17/2016.
== END 2016-10-05 09:59 | disposition home or self-care (01) ==
LOC: JP.ED 14:29 → JP.MS 18:50
PROVIDERS: ADMIT Hospitalist; ATTEND Surgery
DX: E86.0 Dehydration (principal); K59.01 Slow transit constipation; K21.9 Gastro-esophageal reflux disease without esophagitis; E55.9 Vitamin D deficiency, unspecified; Z98.84 Bariatric surgery status; Z79.899 Other long term (current) drug therapy; E66.9 Obesity, unspecified; Z90.49 Acquired absence of other specified parts of digestive tract; Z98.890 Other specified postprocedural states; Z68.30 Body mass index [BMI] 30.0-30.9, adult
CPT/HCPCS: 36415; 74177; 80048; 80053; 81001; 83690; 85025; 96374; 96375; 99284; 99285; A9270; C9113; J2270; J2405; J7030; J7040; J7050; J7120; Q9967; 96361; 96376; 99219; G0378

== ENCOUNTER 2016-10-15 11:37 | Observation (INO) | payer MEDICARE, BC ==
[2016-10-15] MEDS ORDERED: HYDROmorphone 0.5 MG/0.5 ML Syringe IVPUSH ONE ×2 (11:59→12:30)
[2016-10-15] MEDS ORDERED: Metoclopramide 10 MG/2 ML SDV IVPUSH ONE (11:59)
[2016-10-15] MEDS ORDERED: Lactated Ringers 1,000 ML IV SCH (12:00)
--- NOTE | 2016-10-15 12:07 | EDM.PDOC ---
ED HPI GENERAL MEDICAL PROBLEM - General Chief Complaint: Abdominal Pain Stated Complaint: VOMITING Time Seen by Provider: 10/15/16 11:50 Source of Information: Reports: Patient, Old Records, RN History Limitations: Reports: No Limitations - History of Present Illness INITIAL COMMENTS - FREE TEXT/NARRATIVE: 85 yo female presents with epigastric pain and nausea that began last night and has progressed. Has a pHx of EGD last month, and gastric bypass the month before that. Has not eaten or drank today. No fever. Pain is constant. Onset Date: 10/14/16 Duration: Hour(s):, Getting Worse Location: Reports: Abdomen Quality: Reports: Ache Severity: Severe Improves with: Reports: None Worsens with: Reports: None Context: Reports: Other (Recent GI procedures.) Associated Symptoms: Reports: Loss of Appetite, Nausea/Vomiting. 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[employer]: Reports: Other (see below) (none) Abdominal Pain Score (Numeric/FACES): 10 - Related Data Allergies Allergy/AdvReac Type Severity Reaction Status Date / Time No Known Allergies Allergy Verified 10/04/16 14:59 Home Meds: Home Meds Acetaminophen [Tylenol] 650 mg PO Q6H PRN 09/18/16 [History] Cyanocobalamin (Vitamin B12) [Vitamin B12] 1,000 mcg PO DAILY 09/18/16 [History] Multivitamin with Minerals [Multiple Vitamin] 1 tab PO DAILY 09/18/16 [History] Pediatric Multivit #17/Iron [Children's Chewables] 1 tab PO DAILY 09/18/16 [ History] Ondansetron [Zofran ODT] 4 mg PO Q6H PRN #30 tab.dis 09/26/16 [Rx] traMADol [Ultram] 50 mg PO Q4H PRN #30 tablet 09/26/16 [Rx] Sennosides [Senna] 2 tab PO DAILY #60 tab 10/05/16 [Rx] Past Medical History HEENT History: Reports: Cataract, Hard of Hearing, Impaired Vision Other HEENT History: wears glasses Cardiovascular History: Reports: SOB on Exertion, Syncope Gastrointestinal History: Reports: Cholelithiasis, Chronic Constipation, Gastritis, 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: Musculoskeletal History: Reports: Arthritis, Back Pain, Chronic, Fracture Other Musculoskeletal History: rib fx 2 different times Neurological History: Reports: Headaches, Chronic Endocrine/Metabolic History: Reports: Obesity/BMI 30+, Vitamin D Deficiency Dermatologic History: Reports: None - Infectious Disease History Infectious Disease History: Reports: Chicken Pox, Measles - Past Surgical History HEENT Surgical History: Reports: Cataract Surgery GI Surgical History: Reports: Appendectomy, Bariatric Procedure, Cholecystectomy , Colonoscopy, EGD, Hernia, Abdominal, Obed Fundoplication, Other (See Below) Musculoskeletal Surgical History: Reports: Arthroscopic Knee, Arthroscopic Procedure, Shoulder Surgery Other Musculoskeletal Surgeries/Procedures:: Bilateral knee surgery Dermatological Surgical History: Reports: Skin Biopsy Social & Family History - Family History Family Medical History: Noncontributory Cardiac: Reports: CAD, [place] Neurological: Reports: Parkinson's Oncologic: Reports: Lymphoma - Tobacco Use Smoking Status *Q: Never Smoker Second Hand Smoke Exposure: No - Caffeine Use Caffeine Use: Reports: Coffee - Alcohol Use Days Per Week of Alcohol Use: 0 - Recreational Drug Use Recreational Drug Use: No ED ROS GENERAL - Review of Systems Review Of Systems: See Below Constitutional: Reports: Decreased Appetite. Denies: Fever, Chills, Diaphoresis HEENT: Reports: No Symptoms Respiratory: Reports: No Symptoms Cardiovascular: Reports: No Symptoms GI/Abdominal: Reports: Abdominal Pain, Constipation (Took a laxative before arrival), Decreased Appetite, Nausea. Denies: Black Stool, Bloody Stool, Diarrhea, Distension, Hematemesis, Hematochezia, Melena, Stool Incontinence, Vomiting : Reports: No Symptoms Musculoskeletal: Reports: No Symptoms Skin: Reports: No Symptoms Neurological: Reports: No Symptoms Psychiatric: Reports: No Symptoms ED EXAM, GI/ABD - Physical Exam Exam: See Below Exam Limited By: No Limitations General Appearance: Alert, WD/WN, No Apparent Distress Eyes: Bilateral: Normal Appearance, EOMI Ears: Normal External Exam, Normal Canal, Hearing Grossly Normal Nose: Normal Inspection, Normal Mucosa, No Blood Throat/Mouth: Normal Inspection, Normal Lips, Normal Teeth, Normal Oropharynx, Normal Voice, No Airway Compromise Head: Atraumatic, Normocephalic Neck: Normal Inspection, Supple, Non-Tender Respiratory/Chest: No Respiratory Distress, Lungs Clear, Normal Breath Sounds, No Accessory Muscle Use Cardiovascular: Regular Rate, Rhythm, No Edema GI/Abdominal: Normal Bowel Sounds, Soft, No Distention, Hypoactive Bowel Sounds , Tenderness (epigastric tenderness). No: Guarding, Rebound Back Exam: Normal Inspection Extremities: Normal Inspection, Normal Range of Motion, Non-Tender, No Pedal Edema Neurological: Alert, Oriented, CN II-XII Intact, Normal Cognition, No Motor/ Sensory Deficits Psychiatric: Normal Affect, Normal Mood Skin Exam: Warm, Dry, Intact, Normal Color, No Rash Lymphatic: No Adenopathy EKG INTERPRETATION EKG Date: 10/15/16 Time: 12:15 Rhythm: NSR Rate (beats/min): 105 [place] D Arc: normal P-wave: present QRS: other (LAFB) ST-T: normal QT: normal Comparison: no change Course - Vital Signs Text/Narrative:: IV of LR @ 250 ml/h, Dilaudid 0.5 mg IV x 2, Reglan [address] abd/pelvis-No acute changes. Dr. Strong paged @ 1306h, Dr. Miranda paged @ 1402h Last Recorded V/S: Last Vital Signs Temp 36.8 C 10/15/16 11:49 Pulse 106 H 10/15/16 11:49 Resp 18 10/15/16 11:49 BP 123/64 10/15/16 11:49 Pulse Ox 97 10/15/16 11:49 - Orders/Labs/Meds Orders: Active Orders 24 hr Category Date Time Status EKG Documentation Completion [RC] ASDIRECTED Care 10/15/16 12:08 Active Iopamidol [Isovue-300 (61%)] Med 10/15/16 12:32 Active 100 ml IV . DIRECTED PRN Lactated Ringers [Ringers, Lactated] 1,000 ml Med 10/15/16 12:00 Active IV ASDIRECTED Sodium Chloride 0.9% [Normal Saline] 70 ml Med 10/15/16 12:45 Active IV ASDIRECTED EKG 12 Lead [EK] Routine Ther 10/15/16 12:08 Ordered Medication Orders Lactated Ringer's (Ringers, Lactated) 1,000 mls @ 250 mls/hr IV ASDIRECTED PEDRO Last Admin: 10/15/16 12:13 Dose: 250 mls/hr Sodium Chloride (Normal Saline) 70 mls @ 3 mls/sec IV ASDIRECTED PEDRO Stop: 10/15/16 16:00 Iopamidol (Isovue-300 (61%)) 100 ml IV . DIRECTED PRN PRN Reason: RADIOLOGY EXAM Stop: 10/16/16 12:33 Labs: Laboratory Tests 10/15/16 10/15/16 Range/Units 12:00 12:00 WBC 9.5 (4.5-11.0) K/uL RBC 5.49 (3.30-5.50) M/uL Hgb 15.7 H D (12.0-15.0) g/dL Hct 47.4 (36.0-48.0) % MCV 86 (80-98) fL MCH 29 (27-31) pg MCHC 33 (32-36) % Plt Count 290 (150-400) K/uL Sodium 139 L (140-148) mmol/L Potassium 4.4 (3.6-5.2) mmol/L Chloride 106 (100-108) mmol/L Carbon Dioxide 22 (21-32) mmol/L Anion Gap 15.4 H (5.0-14.0) mmol/L BUN 10 (7-18) mg/dL Creatinine 0.9 (0.6-1.0) mg/dL Est Cr Clr Drug Dosing 33.42 mL/min Estimated GFR (MDRD) 60 (>60) Glucose 114 H (74-106) mg/dL Calcium 10.4 H D (8.5-10.1) mg/dL Total Bilirubin 1.1 H (0.2-1.0) mg/dL AST 18 (15-37) U/L ALT 15 (12-78) U/L Alkaline Phosphatase 72 (46-116) U/L Total Protein 7.3 (6.4-8.2) g/dL Albumin 3.6 (3.4-5.0) g/dL Globulin 3.7 H (2.3-3.5) g/dL Albumin/Globulin Ratio 1.0 L (1.2-2.2) Lipase 89 (73-393) U/L Meds: Medications Generic Name Dose Route Start Last Admin Trade Name Freq PRN Reason Stop Dose Admin Lactated Ringer's 1,000 mls @ 250 mls/hr 10/15/16 12:00 10/15/16 12:13 Ringers, Lactated IV 250 mls/hr ASDIRECTED PEDRO Administration Sodium Chloride 70 mls @ 3 mls/sec 10/15/16 12:45 Normal Saline IV 10/15/16 16:00 ASDIRECTED PEDRO Iopamidol 100 ml 10/15/16 12:32 Isovue-300 (61%) IV 10/16/16 12:33 . DIRECTED PRN RADIOLOGY EXAM Discontinued Medications Generic Name Dose Route Start Last Admin Trade Name Yoelq PRN Reason Stop Dose Admin Hydromorphone HCl 0.5 mg 10/15/16 11:59 10/15/16 12:11 Dilaudid IVPUSH 10/15/16 12:00 0.5 mg ONETIME ONE Administration Hydromorphone HCl 0.5 mg 10/15/16 12:30 10/15/16 12:34 Dilaudid IVPUSH 10/15/16 12:31 0.5 mg ONETIME ONE Administration Metoclopramide HCl 10 mg 10/15/16 11:59 10/15/16 12:12 Reglan IVPUSH 10/15/16 12:00 10 mg ONETIME ONE Administration Departure - Departure Time of Disposition: 14:15 Disposition: Refer to Observation Condition: fair Clinical Impression: Epigastric pain, Nausea - Discharge Information Forms: ED Department Discharge - My Orders Last 24 Hours: My Active Orders 10/15/16 12:00 Lactated Ringers [Ringers, Lactated] 1,000 ml IV ASDIRECTED 10/15/16 12:08 EKG Documentation Completion [RC] ASDIRECTED EKG 12 Lead [EK] Routine 10/15/16 12:32 Iopamidol [Isovue-300 (61%)] 100 ml IV . DIRECTED PRN 10/15/16 12:45 Sodium Chloride 0.9% [Normal Saline] 70 ml IV ASDIRECTED - Assessment/Plan Last 24 Hours: My Active Orders 10/15/16 12:00 Lactated Ringers [Ringers, Lactated] 1,000 ml IV ASDIRECTED 10/15/16 12:08 EKG Documentation Completion [RC] ASDIRECTED EKG 12 Lead [EK] Routine 10/15/16 12:32 Iopamidol [Isovue-300 (61%)] 100 ml IV . DIRECTED PRN 10/15/16 12:45 Sodium Chloride 0.9% [Normal Saline] 70 ml IV ASDIRECTED
[2016-10-15] MEDS ORDERED: Iopamidol 612 MG/ML 100 ML Bottle IV PRN (12:32)
--- NOTE | 2016-10-15 13:12 | CT ---
Abdomen pelvis CT. History: Epigastric pain with nausea. Technique: IV contrast was administered followed by axial imaging from the lung bases extending thro ugh the abdomen and pelvis. Coronal images were reconstructed. Total DLP: 932. Comparison: 04 Oct 2016. Findings: Limited evaluation of the lower lung su demonstrates no abnormalities. There are stable postoperative findings of the stomach consistent with a Maricruz-en-Y gastric bypass. T here are no findings of bowel distention. The liver, pancreas, and spleen are stable. There are calc ified granulomas throughout the spleen. There is no adenopathy. There is no ascites. There is a surg ical scar mid abdomen. The kidneys demonstrate symmetric excretion of contrast. There is no hydronep hrosis. Impression: 1. Stable exam. No acute findings of the abdomen or pelvis.
--- NOTE | 2016-10-15 14:57 | PCM.HP ---
H&P History of Present Illness - General Date of Service: 10/15/16 Admit Problem/Dx: Admission Diagnosis/Problem Admission Diagnosis/Problem Epigastric pain Source of Information: Patient, Family, Provider History Limitations: Reports: No Limitations - History of Present Illness Initial Comments - Free Text/Narative: Danette presents to the emergency room with about 24 hours of progressive epigastric abdominal pain. She reports a sharp shooting pain in the middle of her abdomen. This came on without inciting event. Pain has worsened since onset yesterday. Tramadol has not helped the pain. Nothing obviously makes the pain worse. She has some associated nausea but no vomiting. She does have the sensation that food is getting stuck and pills are getting stuck after she swallows them. She thinks that her pain started yesterday after she tried to swallow one of her pain pills. She has not had a bowel movement in a couple of days other than a few jazmine. She is not aware of any fevers. She has not had any sick contacts. She does report frequent urination but this is becoming a chronic issue. No complaints of chest pain or shortness of breath. She has not had much to eat or drink in the past 24 hours. Workup in the emergency room has been reassuring with fairly normal laboratory testing and a negative CT of the abdomen. Patient was in significant distress with pain at the time of arrival but is feeling better after several doses of IV pain medication. Abdominal Pain Score (Numeric/FACES): 10 - Related Data Allergies/Adverse Reactions: Allergies Allergy/AdvReac Type Severity Reaction Status Date / Time No Known Allergies Allergy Verified 10/04/16 14:59 Home Medications: Home Meds Acetaminophen [Tylenol] 650 mg PO Q6H PRN 09/18/16 [History] Cyanocobalamin (Vitamin B12) [Vitamin B12] 1,000 mcg PO DAILY 09/18/16 [History] Multivitamin with Minerals [Multiple Vitamin] 1 tab PO DAILY 09/18/16 [History] Pediatric Multivit #17/Iron [Children's Chewables] 1 tab PO DAILY 09/18/16 [ History] Ondansetron [Zofran ODT] 4 mg PO Q6H PRN #30 tab.dis 09/26/16 [Rx] traMADol [Ultram] 50 mg PO Q4H PRN #30 tablet 09/26/16 [Rx] Sennosides [Senna] 2 tab PO DAILY #60 tab 10/05/16 [Rx] Past Medical History HEENT History: Reports: Cataract, Hard of Hearing, Impaired Vision Other HEENT History: wears glasses Cardiovascular History: Reports: SOB on Exertion, Syncope Gastrointestinal History: Reports: Cholelithiasis, Chronic Constipation, Gastritis, GERD 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: Musculoskeletal History: Reports: Arthritis, Back Pain, Chronic, Fracture Other Musculoskeletal History: rib fx 2 different times Neurological History: Reports: Headaches, Chronic Endocrine/Metabolic History: Reports: Obesity/BMI 30+, Vitamin D Deficiency Dermatologic History: Reports: None - Infectious Disease History Infectious Disease History: Reports: Chicken Pox, Measles - Past Surgical History HEENT Surgical History: Reports: Cataract Surgery GI Surgical History: Reports: Appendectomy, Bariatric Procedure, Cholecystectomy , Colonoscopy, EGD, Hernia, Abdominal, Obed Fundoplication, Other (See Below) Musculoskeletal Surgical History: Reports: Arthroscopic Knee, Arthroscopic Procedure, Shoulder Surgery Other Musculoskeletal Surgeries/Procedures:: Bilateral knee surgery Dermatological Surgical History: Reports: Skin Biopsy Social & Family History - Family History Family Medical History: Noncontributory Cardiac: Reports: CAD, [place] Neurological: Reports: Parkinson's Oncologic: Reports: Lymphoma - Tobacco Use Smoking Status *Q: Never Smoker Second Hand Smoke Exposure: No - Caffeine Use Caffeine Use: Reports: Coffee - Alcohol Use Days Per Week of Alcohol Use: 0 - Recreational Drug Use Recreational Drug Use: No H&P Review of Systems - Review of Systems: Review Of Systems: See Below Free Text/Narrative: A complete 12 point review of systems was obtained. Pertinent positives and negatives are noted in the history of present illness. All other systems were reviewed and were negative except as noted. Exam - Exam Exam: See Below - Vital Signs Vital Signs: Last Vital Signs Temp 36.8 C 10/15/16 11:49 Pulse 106 H 10/15/16 11:49 Resp 18 10/15/16 11:49 BP 123/64 10/15/16 11:49 Pulse Ox 97 10/15/16 11:49 Weight: 77.111 kg - Exam Quality Assessment: No: Supplemental Oxygen General: Alert, Oriented, Cooperative, Mild Distress HEENT: Conjunctiva Clear. No: Mucosa Moist & [place] (dry), Scleral Icterus Neck: Supple, Trachea Midline. No: Lymphadenopathy, Thyromegaly Lungs: Clear to Auscultation, Normal Respiratory Effort Cardiovascular: Regular Rate, Regular Rhythm. No: Systolic Murmur Abdomen: Normal Bowel Sounds, Soft. No: Distention, Tenderness, Mass Back Exam: Normal Inspection, Full Range of Motion Extremities: Normal Inspection. No: Clubbing, Cyanosis Skin: Warm, Dry Neuro Extensive - Mental Status: Alert, Oriented x3, Nl Response to Commands Neuro Extensive - Motor, Sensory, Reflexes: CN II-XII Intact. No: Dysarthria, Abnormal Motor, Tremor Psychiatric: Alert, Normal Affect - Patient Data Lab Results last 24 hrs: Laboratory Results - last 24 hr 10/15/16 10/15/16 Range/Units 12:00 12:00 WBC 9.5 (4.5-11.0) K/uL RBC 5.49 (3.30-5.50) M/uL Hgb 15.7 H D (12.0-15.0) g/dL Hct 47.4 (36.0-48.0) % MCV 86 (80-98) fL MCH 29 (27-31) pg MCHC 33 (32-36) % Plt Count 290 (150-400) K/uL Sodium 139 L (140-148) mmol/L Potassium 4.4 (3.6-5.2) mmol/L Chloride 106 (100-108) mmol/L Carbon Dioxide 22 (21-32) mmol/L Anion Gap 15.4 H (5.0-14.0) mmol/L BUN 10 (7-18) mg/dL Creatinine 0.9 (0.6-1.0) mg/dL Est Cr Clr Drug Dosing 33.42 mL/min Estimated GFR (MDRD) 60 (>60) Glucose 114 H (74-106) mg/dL Calcium 10.4 H D (8.5-10.1) mg/dL Total Bilirubin 1.1 H (0.2-1.0) mg/dL AST 18 (15-37) U/L ALT 15 (12-78) U/L Alkaline Phosphatase 72 (46-116) U/L Total Protein 7.3 (6.4-8.2) g/dL Albumin 3.6 (3.4-5.0) g/dL Globulin 3.7 H (2.3-3.5) g/dL Albumin/Globulin Ratio 1.0 L (1.2-2.2) Lipase 89 (73-393) U/L Result Diagrams: 10/15/16 12:00 10/15/16 12:00 Imaging Impressions last 24 hrs: CT abd/pelvis - images personally reviewed - hx of wojciech-en-y GBP, no acute intra -abdominal findings such as obstruction, perforation or abscess *Q Meaningful Use (ADM) - VTE *Q VTE Criteria *Q: - VTE Risk Assess *Q Each Risk Factor Represents 1 Point: None Total Score 1 Point Risk Factors: 0 Each Risk Factor Represents 2 Points: None Total Score 2 Point Risk Factors: 0 Each Risk Factor Represents 3 Points: Age 75 Years or Greater Total Score 3 Point Risk Factors: 3 Each Risk Factor Represents 5 Points: None Total Score 5 Point Risk Factors: 0 Venous Thromboembolism Risk Factor Score *Q: 3 - Stroke *Q Stroke Criteria *Q: - AMI *Q AMI Criteria *Q: - Problem List (1) Epigastric pain SNOMED Code(s): 81088268 ICD Code: R10.13 - EPIGASTRIC PAIN Status: Acute Current Visit: Yes (2) Nausea SNOMED Code(s): 678770718 ICD Code: R11.0 - NAUSEA Status: Acute Current Visit: Yes (3) Dehydration SNOMED Code(s): 56135154 ICD Code: E86.0 - DEHYDRATION Status: Acute Current Visit: No (4) Status post gastric bypass for obesity SNOMED Code(s): 632758993, 51905660, 556089652, 846116163 ICD Code: Z98.84 - BARIATRIC SURGERY STATUS Status: Chronic Current Visit : No Problem Details: Revision Problem List Initiated/Reviewed/Updated: Yes Orders Last 24hrs: Active Orders 24 hr Category Date Time Status Patient Status Manage Transfer [TRANSFER] Routine ADT 10/15/16 14:43 Ordered EKG Documentation Completion [RC] ASDIRECTED Care 10/15/16 12:08 Active Iopamidol [Isovue-300 (61%)] Med 10/15/16 12:32 Active 100 ml IV . DIRECTED PRN Lactated Ringers [Ringers, Lactated] 1,000 ml Med 10/15/16 12:00 Active IV ASDIRECTED Sodium Chloride 0.9% [Normal Saline] 70 ml Med 10/15/16 12:45 Active IV ASDIRECTED Resuscitation Status Routine Resus Stat 10/15/16 14:45 Ordered EKG 12 Lead [EK] Routine Ther 10/15/16 12:08 Ordered Medication Orders Lactated Ringer's (Ringers, Lactated) 1,000 mls @ 250 mls/hr IV ASDIRECTED PEDRO Last Admin: 10/15/16 12:13 Dose: 250 mls/hr Sodium Chloride (Normal Saline) 70 mls @ 3 mls/sec IV ASDIRECTED PEDRO Stop: 10/15/16 16:00 Iopamidol (Isovue-300 (61%)) 100 ml IV . DIRECTED PRN PRN Reason: RADIOLOGY EXAM Stop: 10/16/16 12:33 Assessment/Plan Comment:: Assessment and plan - Epigastric abdominal pain with nausea and dehydration - recent history of Wojciech- en-Y gastric bypass type procedure. No strong evidence for infection at this time and CT was relatively unremarkable. There is some concern for stricture given the dysphagia symptoms reported. The patient is not excited about having another dilation procedure. She is hoping that with pain control and some liquids that she will be able to get by without additional procedures. -Pain control with liquid pain medications and IV pain medications for severe pain -Hydration -Nausea control Constipation - no bowel movement in several days. History of similar difficulties. -Bowel stimulation Maintenance issues - - DVT prophylaxis - mechanical - GI prophylaxis - PPI - Nutrition - clear liquids - Connors catheter - not indicated CODE STATUS - DNR/DNI Admission justification - Patient will be referred to observation status for pain control and IV fluids Disposition - anticipate discharge to home after the hospital stay Primary care physician - Dr Yousuf Miranda M.D.
[2016-10-15] MEDS ORDERED: Polyethylene Glycol 3350 Powder 17 GM Packet PO PRN (15:54)
[2016-10-15] MEDS ORDERED: HYDROmorphone 1 MG/ML Syringe IVPUSH PRN (15:54)
[2016-10-15] MEDS ORDERED: Alum Hydrox/Mag Hydrox/Simeth 15 ML, Lidocaine 2% 15 ML PO PRN ×2 (15:54)
[2016-10-15] MEDS ORDERED: Bisacodyl 5 MG Tab PO PRN (15:54)
[2016-10-15] MEDS: Sodium Chloride 0.9% 1,000 ML IV SCH (16:48)
[2016-10-15] MEDS: Lansoprazole 30 MG Orally Disintegrating Tab.CR PO SCH (16:50)
[2016-10-15] MEDS: Acetaminophen/HYDROcodone 108-2.5 MG/5 ML Soln 15 ML UD Cup PO PRN (22:19)
[2016-10-16] MEDS: Sodium Chloride 0.9% 1,000 ML IV SCH (02:18)
[2016-10-16] MEDS: ONDANSETRON 4 MG PO PRN ×2 (07:29→13:29)
[2016-10-16] MEDS: Lansoprazole 30 MG Orally Disintegrating Tab.CR PO SCH ×2 (07:30→16:50)
[2016-10-16] MEDS ORDERED: Ondansetron 4 MG Tab.DIS PO PRN (08:05)
[2016-10-16] MEDS ORDERED: Acetaminophen 325 MG Tab PO PRN (08:05)
[2016-10-16] MEDS ORDERED: Dextrose 5%-Lactated Ringers 1,000 ML IV SCH (08:15)
[2016-10-16] MEDS ORDERED: MVI, Adult with Vitamin K 10 ML, Thiamine 100 MG, Magnesium Sulfate 2 GM, Folic Acid 1 ... IV ONE ×5 (10:00)
[2016-10-16] MEDS: Sennosides 8.6 MG Tab PO SCH (10:25)
[2016-10-16] MEDS: MEGESTROL 40 MG PO SCH ×2 (10:25→20:42)
--- NOTE | 2016-10-16 15:38 | PCM.PN ---
- General Info Date of Service: 10/16/16 Functional Status: Reports: pain controlled, tolerating diet - Review of Systems Gastrointestinal: Reports: Difficulty swallowing, Nausea. Denies: Abdominal pain Systems Review Comment:: No acute events overnight. She did have some difficulty with nausea after breakfast this morning. This has resolved and she tolerated lunch much better. No complaints of abdominal pain throughout the day today. No difficulty swallowing as long as she sticks to liquids. She has not had any fevers. Upper endoscopy was discussed this morning and patient was not interested in additional procedures at this time. She wishes to try things with a liquid diet before embarking on any additional procedures. - Patient Data Vitals - most recent: Last Vital Signs Temp 36.6 C 10/16/16 11:35 Pulse 84 10/16/16 11:35 Resp 16 10/16/16 11:35 BP 122/68 10/16/16 11:35 Pulse Ox 98 10/16/16 11:35 Weight - most recent: 74.208 kg I&O - last 24 hours: Intake & Output 10/16/16 10/16/16 10/16/16 06:59 14:59 22:59 Intake Total 1164 Output Total 150 500 Balance 1014 -500 Lab Results last 24 hrs: Laboratory Results - last 24 hr 10/16/16 10/16/16 Range/Units 04:20 04:20 WBC 5.4 (4.5-11.0) K/uL RBC 4.75 (3.30-5.50) M/uL Hgb 13.8 (12.0-15.0) g/dL Hct 42.0 (36.0-48.0) % MCV 88 (80-98) fL MCH 29 (27-31) pg MCHC 33 (32-36) % Plt Count 262 (150-400) K/uL Sodium 140 (140-148) mmol/L Potassium 4.0 (3.6-5.2) mmol/L Chloride 109 H (100-108) mmol/L Carbon Dioxide 23 (21-32) mmol/L Anion Gap 12.0 (5.0-14.0) mmol/L BUN 7 (7-18) mg/dL Creatinine 0.8 (0.6-1.0) mg/dL Est Cr Clr Drug Dosing 37.60 mL/min Estimated GFR (MDRD) > 60 (>60) Glucose 82 (74-106) mg/dL Calcium 9.4 (8.5-10.1) mg/dL Med Orders - Current: Current Medications Acetaminophen (Tylenol) 650 mg PO Q6H PRN PRN Reason: Pain Hydrocodone Bitart/Acetaminophen (Acetaminophen/Hydrocodone 108-2.5 Mg/5 Ml) 10 ml PO Q4H PRN PRN Reason: Pain Last Admin: 10/15/16 22:19 Dose: 10 ml Bisacodyl (Dulcolax) 5 mg PO DAILY PRN PRN Reason: Constipation Last Admin: 10/16/16 07:30 Dose: 5 mg Al Hydroxide/Mg Hydroxide 15 (ml/ Lidocaine HCl 15 ml) 0 ml PO Q6H PRN PRN Reason: epigastric pain Hydromorphone HCl (Dilaudid) 0.5 - 1 mg IVPUSH Q2H PRN PRN Reason: Pain (severe 7-10) Dextrose/Lactated Ringer's (Dextrose 5%-Lactated Ringers) 1,000 mls @ 100 mls/ hr IV ASDIRECTED [facility] Multivitamins/Minerals 10 ml/Thiamine HCl 100 mg/ Magnesium Sulfate 2 gm/ Folic Acid 1 mg / Lactated Ringer's 1,015.2 mls @ 100 mls/hr IV ONETIME ONE Stop: 10/16/16 20:09 Last Admin: 10/16/16 10:21 Dose: 100 mls/hr [facility] Last Admin: 10/16/16 07:30 Dose: 30 mg Megestrol Acetate (Megace) 40 mg PO BID [facility] Last Admin: 10/16/16 10:25 Dose: 40 mg Ondansetron HCl (Zofran Odt) 4 mg PO Q6H PRN PRN Reason: Nausea able to take PO Last Admin: 10/16/16 13:29 Dose: 4 mg Polyethylene Glycol (Miralax) 17 gm PO DAILY PRN PRN Reason: Constipation Senna (Senna) 17.2 mg PO DAILY [facility] Last Admin: 10/16/16 10:25 Dose: 17.2 mg Discontinued Medications Hydromorphone HCl (Dilaudid) 0.5 mg IVPUSH ONETIME ONE Stop: 10/15/16 12:00 Last Admin: 10/15/16 12:11 Dose: 0.5 mg Hydromorphone HCl (Dilaudid) 0.5 mg IVPUSH ONETIME ONE Stop: 10/15/16 12:31 Last Admin: 10/15/16 12:34 Dose: 0.5 mg Lactated Ringer's (Ringers, Lactated) 1,000 mls @ 250 mls/hr IV ASDIRECTED [facility] Last Admin: 10/15/16 12:13 Dose: 250 mls/hr Sodium Chloride (Normal Saline) 70 mls @ 3 mls/sec IV ASDIRECTED [facility] Stop: 10/15/16 16:00 Sodium Chloride (Normal Saline) 1,000 mls @ 100 mls/hr IV ASDIRECTED [facility] Last Admin: 10/16/16 02:18 Dose: 100 mls/hr Iopamidol (Isovue-300 (61%)) 100 ml IV . DIRECTED PRN PRN Reason: RADIOLOGY EXAM Stop: 10/16/16 12:33 Metoclopramide HCl (Reglan) 10 mg IVPUSH ONETIME ONE Stop: 10/15/16 12:00 Last Admin: 10/15/16 12:12 Dose: 10 mg - Exam Quality Assessment: No: supplemental oxygen General: alert, oriented, cooperative, no acute distress Neck: supple Lungs: Normal respiratory effort Cardiovascular: Regular Rate, Regular Rhythm Abdomen: soft, no distension Extremities: no edema - Problem List & Annotations (1) Epigastric pain SNOMED Code(s): 00406385 Code(s): R10.13 - EPIGASTRIC PAIN Status: Acute Current Visit: Yes (2) Nausea SNOMED Code(s): 354110383 Code(s): R11.0 - NAUSEA Status: Acute Current Visit: Yes (3) Dehydration SNOMED Code(s): 62358312 Code(s): E86.0 - DEHYDRATION Status: Acute Current Visit: No (4) Status post gastric bypass for obesity SNOMED Code(s): 991653566, 03244318, 495937496, 551377785 Code(s): Z98.84 - BARIATRIC SURGERY STATUS Status: Chronic Current Visit : No Annotation/Comment:: Revision - Problem List Review Problem List Initiated/Reviewed/Updated: Yes - My Orders Last 24 Hours: My Active Orders 10/15/16 14:45 Resuscitation Status Routine 10/15/16 15:54 Patient Status [ADT] Routine Intake and Output [RC] QSHIFT Notify Provider Consults [RC] ASDIRECTED Notify Provider Vital Signs [RC] ASDIRECTED Oxygen Therapy [RC] PRN Up With Assistance [RC] ASDIRECTED VTE/DVT Education [RC] Per Unit Routine Vital Signs [RC] Q4H Consult to Physician [CONS] Routine Acetaminophen/HYDROcodone [Acetaminophen/HYDROcodone 108-2.5 MG/5 ML] 10 ml PO Q4H PRN Alum Hydrox/Mag Hydrox/Simeth [Mag-Al Plus] 15 ml Lidocaine 2% [Xylocaine 2% Viscous] 15 ml PO Q6H Bisacodyl [Dulcolax] 5 mg PO DAILY PRN HYDROmorphone [Dilaudid] 0.5 - 1 mg IVPUSH Q2H PRN Ondansetron [Zofran ODT] 4 mg PO Q6H PRN Polyethylene Glycol 3350 [MiraLAX] 17 gm PO DAILY PRN Sequential Compression Device [OM.PC] Per Unit Routine 10/15/16 16:30 Lansoprazole [Prevacid Solutab] 30 mg PO BIDAC - Plan Plan:: Assessment and plan - Epigastric abdominal pain with nausea and dehydration - recent history of Maricruz- en-Y gastric bypass type procedure. Pain has resolved. Suspect that she had some inflammation and possibly a stricture from recent gastric bypass surgery. Doing well with liquids at this time. Patient is not excited about additional procedures at this point. -Continue gentle Hydration -Pain control if it recurs -Nausea control -Full liquid diet Constipation - patient did have a bowel movement today. -Bowel stimulation Maintenance issues - - DVT prophylaxis - mechanical - GI prophylaxis - PPI - Nutrition -full liquids - Connors catheter - not indicated Disposition - anticipate discharge to home after the hospital stay, likely tomorrow. Guero Miranda M.D.
[2016-10-16] MEDS: Acetaminophen/HYDROcodone 108-2.5 MG/5 ML Soln 15 ML UD Cup PO PRN (20:40)
--- NOTE | 2016-10-16 21:47 | PCM.CONS ---
H&P History of Present Illness - General Date of Service: 10/16/16 Admit Problem/Dx: Admission Diagnosis/Problem Admission Diagnosis/Problem Epigastric pain Source of Information: Patient - History of Present Illness Initial Comments - Free Text/Narative: Danette states she had been to her brother's memorial service and feels like she got too tired. She states she didn't drink enough water and she didn't eat very much the next day and then developed nausea, vomiting, weakness, mid epigastric pain. Improves with: Reports: Medication Worsens with: Reports: None Context: Reports: Sick Contact Associated Symptoms: Reports: Loss of Appetite, Nausea/Vomiting Abdominal Pain Score (Numeric/FACES): 2 - Related Data Allergies/Adverse Reactions: Allergies Allergy/AdvReac Type Severity Reaction Status Date / Time No Known Allergies Allergy Verified 10/04/16 14:59 Home Medications: Home Meds Acetaminophen [Tylenol] 650 mg PO Q6H PRN 09/18/16 [History] Cyanocobalamin (Vitamin B12) [Vitamin B12] 1,000 mcg PO DAILY 09/18/16 [History] Ondansetron [Zofran ODT] 4 mg PO Q6H PRN #30 tab.dis 09/26/16 [Rx] traMADol [Ultram] 50 mg PO Q4H PRN #30 tablet 09/26/16 [Rx] Sennosides [Senna] 2 tab PO DAILY #60 tab 10/05/16 [Rx] Megestrol [Megace] 40 mg PO BID 10/15/16 [History] Past Medical History HEENT History: Reports: Cataract, Hard of Hearing, Impaired Vision Other HEENT History: wears glasses Cardiovascular History: Reports: SOB on Exertion, Syncope Gastrointestinal History: Reports: Cholelithiasis, Chronic Constipation, Gastritis, 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: Musculoskeletal History: Reports: Arthritis, Back Pain, Chronic, Fracture Other Musculoskeletal History: rib fx 2 different times Neurological History: Reports: Headaches, Chronic Endocrine/Metabolic History: Reports: Obesity/BMI 30+, Vitamin D Deficiency Dermatologic History: Reports: None - Infectious Disease History Infectious Disease History: Reports: Chicken Pox, Measles - Past Surgical History HEENT Surgical History: Reports: Cataract Surgery GI Surgical History: Reports: Appendectomy, Bariatric Procedure, Cholecystectomy , Colonoscopy, EGD, Hernia, Abdominal, Obed Fundoplication, Other (See Below) Musculoskeletal Surgical History: Reports: Arthroscopic Knee, Arthroscopic Procedure, Shoulder Surgery Other Musculoskeletal Surgeries/Procedures:: Bilateral knee surgery Dermatological Surgical History: Reports: Skin Biopsy Social & Family History - Family History Family Medical History: Noncontributory Cardiac: Reports: CAD, [place] Neurological: Reports: Parkinson's Oncologic: Reports: Lymphoma - Tobacco Use Smoking Status *Q: Never Smoker Second Hand Smoke Exposure: No - Caffeine Use Caffeine Use: Reports: Coffee - Alcohol Use Days Per Week of Alcohol Use: 0 - Recreational Drug Use Recreational Drug Use: No H&P Review of Systems - Review of Systems: Review Of Systems: See Below General: Reports: Weakness, Fatigue, Decreased Appetite, Weight Loss HEENT: Reports: No Symptoms Pulmonary: Reports: No Symptoms Cardiovascular: Reports: No Symptoms Gastrointestinal: Reports: Abdominal Pain (mid epigastric pain ), Nausea Genitourinary: Reports: No Symptoms Musculoskeletal: Reports: Back Pain Skin: Reports: No Symptoms Psychiatric: Reports: No Symptoms Neurological: Reports: No Symptoms Hematologic/Lymphatic: Reports: No Symptoms Immunologic: Reports: No Symptoms Exam - Exam Exam: See Below - Vital Signs Vital Signs: Last Vital Signs Temp 96.8 F 10/16/16 19:07 Pulse 95 10/16/16 19:07 Resp 20 10/16/16 19:07 BP 108/54 L 10/16/16 19:07 Pulse Ox 98 10/16/16 19:07 Weight: 163 lb 9.61 oz - Exam Quality Assessment: DVT Prophylaxis General: Alert, Oriented, Mild Distress HEENT: PERRLA Neck: Supple, Trachea Midline Lungs: Clear to Auscultation, Normal Respiratory Effort Cardiovascular: Regular Rate, Regular Rhythm Abdomen: Soft (Female) Exam: Deferred Rectal (Female) Exam: Deferred Back Exam: Normal Inspection, Full Range of Motion Extremities: Normal Inspection Skin: Warm, Dry, Intact Neurological: Cranial Nerves Intact, Reflexes Equal Bilateral Neuro Extensive - Mental Status: Alert, Oriented x3, Normal Mood/Affect Neuro Extensive - Motor, Sensory, Reflexes: CN II-XII Intact Psychiatric: Alert, Normal Affect, Normal Mood - Patient Data Lab Results last 24 hrs: Laboratory Results - last 24 hr 10/16/16 10/16/16 Range/Units 04:20 04:20 WBC 5.4 (4.5-11.0) K/uL RBC 4.75 (3.30-5.50) M/uL Hgb 13.8 (12.0-15.0) g/dL Hct 42.0 (36.0-48.0) % MCV 88 (80-98) fL MCH 29 (27-31) pg MCHC 33 (32-36) % Plt Count 262 (150-400) K/uL Sodium 140 (140-148) mmol/L Potassium 4.0 (3.6-5.2) mmol/L Chloride 109 H (100-108) mmol/L Carbon Dioxide 23 (21-32) mmol/L Anion Gap 12.0 (5.0-14.0) mmol/L BUN 7 (7-18) mg/dL Creatinine 0.8 (0.6-1.0) mg/dL Est Cr Clr Drug Dosing 37.60 mL/min Estimated GFR (MDRD) > 60 (>60) Glucose 82 (74-106) mg/dL Calcium 9.4 (8.5-10.1) mg/dL Result Diagrams: 10/16/16 04:20 10/16/16 04:20 Consult PN Assessment/Plan Procedures: Procedures ARTHROSCOP ROTATOR CUFF REPR (06/22/14) ARTHROSCOPY OF JOINT (06/22/14) ASSAY OF FERRITIN (08/19/16) ASSAY OF FOLIC ACID SERUM (08/19/16) ASSAY OF LIPASE (10/04/16) ASSAY OF MAGNESIUM (09/23/16) ASSAY OF NATRIURETIC PEPTIDE (09/23/16) ASSAY OF PHOSPHORUS (09/23/16) ASSAY OF TROPONIN QUANT (08/19/16) BLOOD TYPING SEROLOGIC ABO (08/19/16) BLOOD TYPING SEROLOGIC RH(D) (08/19/16) C DIFF AMPLIFIED PROBE (08/19/16) C-REACTIVE PROTEIN (05/29/16) CARDIOVASCULAR STRESS TEST (02/04/13) CARDIOVASCULAR STRESS TEST (02/04/13) CHEST X-RAY 1 VIEW FRONTAL (08/19/16) CHEST X-RAY 2VW FRONTAL&LATL (03/14/13) COMPLETE CBC AUTOMATED (09/23/16) COMPLETE CBC W/AUTO DIFF WBC (10/04/16) COMPREHEN METABOLIC PANEL (10/04/16) CT ABD & PELV W/CONTRAST (10/04/16) CT ABD & PELVIS W/O CONTRAST (05/29/16) CT THORAX W/O DYE (03/14/13) CULTURE SCREEN ONLY (08/08/16) EGD BIOPSY SINGLE/MULTIPLE (08/08/16) EGD DIAGNOSTIC BRUSH WASH (09/18/16) ELECTROCARDIOGRAM TRACING (08/19/16) EMERGENCY DEPT VISIT (10/04/16) EMERGENCY DEPT VISIT (10/04/16) EMERGENCY DEPT VISIT (08/15/14) GLUCOSE BLOOD TEST (08/19/16) HT MUSCLE IMAGE SPECT MULT (02/04/13) IMMUNOHISTO ANTB 1ST STAIN (08/08/16) MEASURE BLOOD OXYGEN LEVEL (08/19/16) METABOLIC PANEL TOTAL CA (10/04/16) MRI JOINT UPR EXTREM W/O DYE (06/15/14) PT EVAL MOD COMPLEX 30 MIN (08/19/16) RBC ANTIBODY SCREEN (08/19/16) ROUTINE VENIPUNCTURE (10/04/16) THER/PROPH/DIAG INJ IV PUSH (10/04/16) THER/PROPH/DIAG INJ SC/IM (03/14/13) THERAPEUTIC ACTIVITIES (08/19/16) THERAPEUTIC EXERCISES (08/19/16) TISSUE EXAM BY PATHOLOGIST (08/08/16) TX/PRO/DX INJ NEW DRUG ADDON (10/04/16) URINALYSIS AUTO W/SCOPE (10/04/16) URINE CULTURE/COLONY COUNT (05/29/16) VITAMIN B-12 (08/19/16) X-RAY EXAM OF JAW <4VIEWS (03/14/13) X-RAY EXAM OF PELVIS (05/29/16) X-RAY EXAM OF SHOULDER (03/14/13) X-RAY UPPER GI DELAY W/O KUB (08/19/16) (1) Epigastric pain SNOMED Code(s): 93818361 Code(s): R10.13 - EPIGASTRIC PAIN Current Visit: Yes (2) Nausea SNOMED Code(s): 928831000 Code(s): R11.0 - NAUSEA Current Visit: Yes (3) Dehydration SNOMED Code(s): 95363765 Code(s): E86.0 - DEHYDRATION Current Visit: No (4) Nausea SNOMED Code(s): 211736803 Code(s): R11.0 - NAUSEA Current Visit: No Problem List Initiated/Reviewed/Updated: Yes My Orders last 24 hours: My Active Orders 10/16/16 08:05 Acetaminophen [Tylenol] 650 mg PO Q6H PRN 10/16/16 08:06 May Shower [RC] ASDIRECTED Consult to O And M Supervisor [CONS] Routine 10/16/16 09:00 Megestrol [Megace] 40 mg PO BID Sennosides [Senna] 17.2 mg PO DAILY 10/16/16 Breakfast Bariatric Diet [DIET] Will observe oral intake today and if mid epigastric pain persists and oral intake inadequate patient may need an EGD with possible dilation. Nai ALAS C
[2016-10-17] MEDS: Lansoprazole 30 MG Orally Disintegrating Tab.CR PO SCH ×2 (07:14→16:06)
[2016-10-17] MEDS ORDERED: Ondansetron 4 MG/2 ML SDV IVPUSH PRN (07:43)
[2016-10-17] MEDS ORDERED: Dextrose 5%-Lactated Ringers 1,000 ML IV SCH (07:45)
[2016-10-17] MEDS: Sennosides 8.6 MG Tab PO SCH (08:53)
[2016-10-17] MEDS: MEGESTROL 40 MG PO SCH ×3 (08:53→20:07)
[2016-10-17] MEDS ORDERED: MVI, Adult with Vitamin K 10 ML, Thiamine 100 MG, Magnesium Sulfate 2 GM, Folic Acid 1 ... IV ONE ×5 (10:00)
[2016-10-17] MEDS ORDERED: Propofol 200 MG/20 ML SDV ONE (13:21)
--- NOTE | 2016-10-17 17:25 | PCM.SURGPN ---
- General Info Date of Service: 10/17/16 Date of Surgery/Procedure: 10/17/16 (EGD w/ dil planned for later this afternoon ) Functional Status: Reports: urinating. Denies: pain controlled - Review of Systems General: Reports: Weakness Pulmonary: Reports: no symptoms Cardiovascular: Reports: No Symptoms Gastrointestinal: Reports: Abdominal pain, Nausea, Vomiting Genitourinary: Reports: no symptoms Systems Review Comment:: The patient was afebrile with normal vital signs overnight. She has been urinating well per nursing. The patient still complains of epigastric pain and nausea with eating as well as some generalized weakness. She denies vomiting, chest pain, shortness of breath, fatigue, or chills. She was made NPO at 1900 last night with plan for EGD later this afternoon. The patient voices no other complaints at this time. - Patient Data Vitals - most recent: Last Vital Signs Temp 36.5 C 10/17/16 17:05 Pulse 64 10/17/16 17:16 Resp 17 10/17/16 17:10 BP 128/59 L 10/17/16 17:16 Pulse Ox 100 10/17/16 17:10 Weight - most recent: 74.208 kg I&O - last 24 hours: Intake & Output 10/17/16 10/17/16 10/17/16 06:59 14:59 22:59 Intake Total 240 100 Output Total 900 600 Balance -660 -600 100 - Exam General: alert, oriented, cooperative, no acute distress HEENT: Pupils equal, Pupils reactive, EOMI, Mucous membr. moist/pink Neck: supple Lungs: Clear to auscultation, Normal respiratory effort Cardiovascular: Regular Rate, Regular Rhythm Abdomen: bowel sounds present, soft, no tenderness, no distension Extremities: no edema Skin: warm, dry, intact - Problem List Review Problem List Initiated/Reviewed/Updated: Yes - My Orders Last 24 Hours: Active Orders 24 hr Category Date Time Status Communication Order [RC] STAT Care 10/17/16 07:43 Active Verify Patient Consent Obtain [RC] ASDIRECTED Care 10/17/16 13:19 Active Consult to Case Management [CONS] Routine Cons 10/17/16 07:45 Active NPO After Midnight [Nothing per Oral After Midnight Diet 10/17/16 Breakfast Active Diet] [DIET] Dextrose 5%-Lactated Ringers 1,000 ml Med 10/17/16 07:45 Active IV ASDIRECTED Ondansetron [Zofran] Med 10/17/16 07:43 Active 4 mg IVPUSH Q4H PRN Medication Orders Acetaminophen (Tylenol) 650 mg PO Q6H PRN PRN Reason: Pain Hydrocodone Bitart/Acetaminophen (Acetaminophen/Hydrocodone 108-2.5 Mg/5 Ml) 10 ml PO Q4H PRN PRN Reason: Pain Last Admin: 10/16/16 20:40 Dose: 10 ml Admin: 10/15/16 22:19 Dose: 10 ml Bisacodyl (Dulcolax) 5 mg PO DAILY PRN PRN Reason: Constipation Last Admin: 10/16/16 07:30 Dose: 5 mg Al Hydroxide/Mg Hydroxide 15 (ml/ Lidocaine HCl 15 ml) 0 ml PO Q6H PRN PRN Reason: epigastric pain Dextrose/Lactated Ringer's (Dextrose 5%-Lactated Ringers) 1,000 mls @ 100 mls/ hr IV ASDIRECTED [facility] Last Admin: 10/17/16 15:22 Dose: 100 mls/hr Lansoprazole (Prevacid Solutab) 30 mg PO BIDAC [facility] Last Admin: 10/17/16 16:06 Dose: Admin: 10/17/16 07:14 Dose: Admin: 10/16/16 16:50 Dose: 30 mg Admin: 10/16/16 07:30 Dose: 30 mg Admin: 10/15/16 16:50 Dose: 30 mg Megestrol Acetate (Megace) 40 mg PO BID [facility] Last Admin: 10/17/16 08:53 Dose: Admin: 10/16/16 20:42 Dose: Not Given Admin: 10/16/16 10:25 Dose: 40 mg Ondansetron HCl (Zofran Odt) 4 mg PO Q6H PRN PRN Reason: Nausea able to take PO Last Admin: 10/16/16 13:29 Dose: 4 mg Admin: 10/16/16 07:29 Dose: 4 mg Ondansetron HCl (Zofran) 4 mg IVPUSH Q4H PRN PRN Reason: Nausea/Vomiting Polyethylene Glycol (Miralax) 17 gm PO DAILY PRN PRN Reason: Constipation Senna (Senna) 17.2 mg PO DAILY [facility] Last Admin: 10/17/16 08:53 Dose: Admin: 10/16/16 10:25 Dose: 17.2 mg - Assessment Assessment (Free Text/Narrative):: Epigastric pain with nausea - Plan Plan (Free Text/Narrative):: 1. Banana bag 200 mL/hr IV 2. Zofran ODT 4 mg PRN nausea 3. Keep patient NPO with plan for EGD later this afternoon 4. Acetaminophen 650 mg PO q6h PRN abdominal pain 5. Discharge the patient and discuss with family about potential assisted living arrangements.
--- NOTE | 2016-10-17 17:36 | PCM.PN ---
- General Info Date of Service: 10/17/16 Functional Status: Reports: pain controlled, ambulating - Review of Systems Gastrointestinal: Reports: Abdominal pain, Nausea Systems Review Comment:: No acute events overnight. Mild nausea and mild abdominal pain when she tried to eat today. She has decided that she would like to have an EGD and possibly a dilation if indicated. No fevers or vomiting. - Patient Data Vitals - most recent: Last Vital Signs Temp 36.5 C 10/17/16 17:26 Pulse 64 10/17/16 17:26 Resp 17 10/17/16 17:26 BP 134/54 L 10/17/16 17:26 Pulse Ox 100 10/17/16 17:26 Weight - most recent: 74.208 kg I&O - last 24 hours: Intake & Output 10/17/16 10/17/16 10/17/16 06:59 14:59 22:59 Intake Total 240 100 Output Total 900 600 Balance -660 -600 100 Med Orders - Current: Current Medications Acetaminophen (Tylenol) 650 mg PO Q6H PRN PRN Reason: Pain Hydrocodone Bitart/Acetaminophen (Acetaminophen/Hydrocodone 108-2.5 Mg/5 Ml) 10 ml PO Q4H PRN PRN Reason: Pain Last Admin: 10/16/16 20:40 Dose: 10 ml Bisacodyl (Dulcolax) 5 mg PO DAILY PRN PRN Reason: Constipation Last Admin: 10/16/16 07:30 Dose: 5 mg Al Hydroxide/Mg Hydroxide 15 (ml/ Lidocaine HCl 15 ml) 0 ml PO Q6H PRN PRN Reason: epigastric pain Dextrose/Lactated Ringer's (Dextrose 5%-Lactated Ringers) 1,000 mls @ 100 mls/ hr IV ASDIRECTED [facility] Last Admin: 10/17/16 15:22 Dose: 100 mls/hr Lansoprazole (Prevacid Solutab) 30 mg PO BIDAC [facility] Last Admin: 10/17/16 16:06 Dose: Not Given Megestrol Acetate (Megace) 40 mg PO BID [facility] Last Admin: 10/17/16 08:53 Dose: Not Given Ondansetron HCl (Zofran Odt) 4 mg PO Q6H PRN PRN Reason: Nausea able to take PO Last Admin: 10/16/16 13:29 Dose: 4 mg Ondansetron HCl (Zofran) 4 mg IVPUSH Q4H PRN PRN Reason: Nausea/Vomiting Polyethylene Glycol (Miralax) 17 gm PO DAILY PRN PRN Reason: Constipation Senna (Senna) 17.2 mg PO DAILY [facility] Last Admin: 10/17/16 08:53 Dose: Not Given Discontinued Medications Hydromorphone HCl (Dilaudid) 0.5 mg IVPUSH ONETIME ONE Stop: 10/15/16 12:00 Last Admin: 10/15/16 12:11 Dose: 0.5 mg Hydromorphone HCl (Dilaudid) 0.5 mg IVPUSH ONETIME ONE Stop: 10/15/16 12:31 Last Admin: 10/15/16 12:34 Dose: 0.5 mg Hydromorphone HCl (Dilaudid) 0.5 - 1 mg IVPUSH Q2H PRN PRN Reason: Pain (severe 7-10) Lactated Ringer's (Ringers, Lactated) 1,000 mls @ [facility] Last Admin: 10/15/16 12:13 Dose: 250 mls/hr Sodium Chloride (Normal Saline) 70 mls @ 3 mls[facility]sec [facility] Stop: 10/15/16 16:00 Sodium Chloride (Normal Saline) 1,000 mls @ 100 [facility]ls[facility] Last Admin: 10/16/16 02:18 Dose: 100 mls/hr Dextrose/Lactated Ringer's (Dextrose 5%-Lactated Ringers) 1,000 mls @ 100 mls/ hr IV [facility] Multivitamins/Minerals 10 ml/Thiamine HCl 100 mg/ Magnesium Sulfate 2 gm/ Folic Acid 1 mg / Lactated Ringer's 1,015.2 mls @ 100 mls/hr IV ONETIME ONE Stop: 10/16/16 20:09 Last Admin: 10/16/16 10:21 Dose: 100 mls/hr Multivitamins/Minerals 10 ml/Thiamine HCl 100 mg/ Magnesium Sulfate 2 gm/ Folic Acid 1 mg / Lactated Ringer's 1,015.2 mls @ 200 mls/hr IV ONETIME ONE Stop: 10/17/16 15:04 Last Admin: 10/17/16 10:16 Dose: 200 mls/hr Iopamidol (Isovue-300 (61%)) 100 ml IV . DIRECTED PRN PRN Reason: RADIOLOGY EXAM Stop: 10/16/16 12:33 Metoclopramide HCl (Reglan) 10 mg IVPUSH ONETIME ONE Stop: 10/15/16 12:00 Last Admin: 10/15/16 12:12 Dose: 10 mg Propofol (Diprivan 20 Ml) Confirm Administered Dose 200 mg .ROUTE .STK-MED ONE Stop: 10/17/16 13:22 - Exam Quality Assessment: No: supplemental oxygen General: alert, oriented, cooperative, no acute distress Neck: supple Lungs: Normal respiratory effort Abdomen: soft, no distension, tenderness Extremities: no edema Skin: warm, dry - Problem List & Annotations (1) Epigastric pain SNOMED Code(s): 06330755 Code(s): R10.13 - EPIGASTRIC PAIN Status: Acute Current Visit: Yes (2) Nausea SNOMED Code(s): 380636216 Code(s): R11.0 - NAUSEA Status: Acute Current Visit: Yes (3) Dehydration SNOMED Code(s): 65934963 Code(s): E86.0 - DEHYDRATION Status: Acute Current Visit: No (4) Status post gastric bypass for obesity SNOMED Code(s): 126706026, 02692015, 010040639, 676421705 Code(s): Z98.84 - BARIATRIC SURGERY STATUS Status: Chronic Current Visit : No Annotation/Comment:: Revision - Problem List Review Problem List Initiated/Reviewed/Updated: Yes - Plan Plan:: Assessment and plan - Epigastric abdominal pain with nausea and dehydration - recent history of Maricruz- en-Y gastric bypass type procedure. Mild pain and ongoing nausea. Difficulty with eating even full liquids. -EGD and possibly dilation later in the day -Continue gentle Hydration -Pain control if it recurs -Nausea control Constipation - patient did have a bowel movement yesterday. -Bowel stimulation Maintenance issues - - DVT prophylaxis - mechanical - GI prophylaxis - PPI - Nutrition - nothing by mouth until after her procedure - Connors catheter - not indicated Disposition - anticipate discharge to home after the hospital stay, likely tomorrow. Guero Miranda M.D.
[2016-10-17] MEDS ORDERED: HYDROmorphone 1 MG/ML Syringe IVPUSH PRN (18:40)
[2016-10-17] MEDS: Dextrose 5%-Lactated Ringers 1,000 ML IV SCH ×2 (20:06→23:55)
[2016-10-18] MEDS: Acetaminophen/HYDROcodone 108-2.5 MG/5 ML Soln 15 ML UD Cup PO PRN (00:20)
[2016-10-18] MEDS ORDERED: Alum Hydrox/Mag Hydrox/Simeth 360 ML, Lidocaine 2% 60 ML PO PRN ×2 (07:28)
[2016-10-18] MEDS: Lansoprazole 30 MG Orally Disintegrating Tab.CR PO SCH (07:32)
[2016-10-18 08:01] VITALS: BP 119/64
[2016-10-18] MEDS: Sennosides 8.6 MG Tab PO SCH (09:09)
[2016-10-18] MEDS: MEGESTROL 40 MG PO SCH (09:09)
--- NOTE | 2016-10-19 00:48 | DISCH ---
ADMISSION DIAGNOSES: 1. Epigastric pain, nausea, dehydration, constipation. 2. Status post Maricruz-en-Y gastric bypass surgery revision. 3. Unspecified surgical malabsorption. 4. B12 deficiency. DISCHARGE DIAGNOSES: 1. Status post EGD on 10/17/2016. 2. Status post Maricruz-en-Y gastric bypass surgery revision. 3. Unspecified surgical malabsorption. 4. B12 deficiency. 5. Resolution of dehydration, epigastric pain, and nausea. HISTORY: Danette Bauman is an 85-year-old female, who presented to the emergency room with progressive epigastric abdominal pain, nausea, and vomiting. She was admitted to the hospital for an EGD. She wanted to wait an extra day hoping things would open up on its own. She did feel better after she received pain medication and anti-nausea medication and she also was constipated at the same time. Danette still felt that she was having difficulty swallowing, so she had an EGD on 10/17/2016, which was negative and she was encouraged to drink more and as long as vital signs were stable, she is able to get an adequate liquid. She is able to be discharged to home. PHYSICAL EXAMINATION: GENERAL: Danette Bauman is an 85-year-old female. VITAL SIGNS: Height is 4 feet 11 inches, weight is 163 pounds. TPR 97.2, 61, 16. Blood pressure 119/64. HEENT: Negative. NECK: Supple. HEART: Regular rate and rhythm. LUNGS: Clear. ABDOMEN: Soft and nontender. EXTREMITIES: Reveal trace peripheral edema. DISPOSITION: Discharged to home. CONDITION: Stable and improving. FOLLOWUP APPOINTMENTS: Nai Ji PA-C on 10/22/2016 at 10:00 a.m. HOME MEDICATIONS: She is to resume all her home medications. DIET: Step-2 gastric bypass diet with no cereal until next appointment. ACTIVITY: Walk short distance 6 times a day inside your home. DISCHARGE INSTRUCTIONS: Shower/bathing, may shower. Notify provider if any nausea or vomiting and call the hospital the first sign of nausea or dehydration.
--- NOTE | 2016-10-21 14:31 | OR ---
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 OPERATIVE PROCEDURE: Upper GI endoscopy with dilation gastrojejunostomy ([id number]). ANESTHESIA: IV sedation. INDICATION FOR PROCEDURE: An 85-year-old female presenting with some nausea and dysphagia status post revision of Maricruz-en-Y gastric bypass. Plan is to proceed with upper GI endoscopy with dilation as indicated. Potential risks including bleeding and perforation were discussed, and the patient wishes to proceed. PROCEDURE IN DETAIL: The patient was taken to the operating room and placed in a left lateral decubitus position. IV sedation was administered, after which the upper GI endoscope was passed through the esophagus through the gastric pouch and through the gastrojejunostomy and roughly 20 cm into the Maricruz limb. The examination was essentially normal. There was perhaps a very slight narrowing of the gastrojejunostomy. A Bard gastrointestinal balloon catheter was inflated to 54-[place] at that level and only a tiny bit of redness was present, roughly over 1/3rd of the ring at the anastomosis indicating this was essentially wide open. At that point, the balloon catheter had been removed. The scope was withdrawn and the patient was taken to recovery room in satisfactory condition. Plan will be to retirement plan counselor the patient regarding maintaining hydration. I think her problems are related to getting behind in terms of hydration and then her secretions become thickened giving her a sense of nausea and dysphagia when trying to begin oral intake. Timi Strong MD /[id number]
== END 2016-10-18 10:55 | disposition home or self-care (01) ==
LOC: JP.ED 11:37 → JP.MS 14:43
PROVIDERS: ADMIT Internal Medicine; ATTEND Internal Medicine
DX: K91.89 Other postprocedural complications and disorders of digestive system (principal); E86.0 Dehydration; Z98.84 Bariatric surgery status
CPT/HCPCS: 36415; 43245; 74177; 80048; 80053; 83690; 85027; 93005; 96361; 96365; 96366; 96375; 96376; 99285; A9270; G0378; J1170; J2704; J2765; J3411; J3475; J7040; J7042; J7120; 93010; 96374; J3490

== ENCOUNTER 2016-11-05 15:32 | Emergency (ER) | payer MEDICARE, BC ==
[2016-11-05 16:01] VITALS: BP 119/65
[2016-11-05] MEDS ORDERED: Lidocaine 4% Top Soln 50 ML Bottle MUCMEM ONE (16:56)
--- NOTE | 2016-11-05 17:06 | EDM.PDOC ---
<Daylin Mcknight - Last Filed: 11/05/16 18:16> ED HPI GENERAL MEDICAL PROBLEM - General Chief Complaint: Gastrointestinal Problem Stated Complaint: CONSTIPATED Time Seen by Provider: 11/05/16 17:01 Source of Information: Reports: Patient, Family History Limitations: Reports: No Limitations - History of Present Illness INITIAL COMMENTS - FREE TEXT/NARRATIVE: pt has severe rectal pain and she feels like she can,t pass the stool. Duration: Hour(s):, Other ( It has been several days since she had a ) Location: Reports: Other ( rectum) Associated Symptoms: Reports: Other ( rectal pain and constipation) - Related Data Allergies Allergy/AdvReac Type Severity Reaction Status Date / Time No Known Allergies Allergy Verified 10/04/16 14:59 Home Meds: Home Meds Acetaminophen [Tylenol] 650 mg PO Q6H PRN 09/18/16 [History] Cyanocobalamin (Vitamin B12) [Vitamin B12] 1,000 mcg PO DAILY 09/18/16 [History] Ondansetron [Zofran ODT] 4 mg PO Q6H PRN #30 tab.dis 09/26/16 [Rx] traMADol [Ultram] 50 mg PO Q4H PRN #30 tablet 09/26/16 [Rx] Sennosides [Senna] 2 tab PO DAILY #60 tab 10/05/16 [Rx] Megestrol [Megace] 40 mg PO BID 10/15/16 [History] Past Medical History HEENT History: Reports: Cataract, Hard of Hearing, Impaired Vision Other HEENT History: wears glasses Cardiovascular History: Reports: SOB on Exertion, Syncope Gastrointestinal History: Reports: Cholelithiasis, Chronic Constipation, Gastritis, GERD 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: Musculoskeletal History: Reports: Arthritis, Back Pain, Chronic, Fracture Other Musculoskeletal History: rib fx 2 different times Neurological History: Reports: Headaches, Chronic Endocrine/Metabolic History: Reports: Obesity/BMI 30+, Vitamin D Deficiency Dermatologic History: Reports: None - Infectious Disease History Infectious Disease History: Reports: Chicken Pox, Measles, Mumps - Past Surgical History HEENT Surgical History: Reports: Cataract Surgery GI Surgical History: Reports: Appendectomy, Bariatric Procedure, Cholecystectomy , Colonoscopy, EGD, Hernia, Abdominal, Obed Fundoplication, Other (See Below) Musculoskeletal Surgical History: Reports: Arthroscopic Knee, Arthroscopic Procedure, Shoulder Surgery Other Musculoskeletal Surgeries/Procedures:: Bilateral knee surgery Dermatological Surgical History: Reports: Skin Biopsy Social & Family History - Family History Family Medical History: Noncontributory Cardiac: Reports: CAD, [place] Neurological: Reports: Parkinson's Oncologic: Reports: Lymphoma - Tobacco Use Smoking Status *Q: Never Smoker Second Hand Smoke Exposure: No - Caffeine Use Caffeine Use: Reports: Coffee - Alcohol Use Days Per Week of Alcohol Use: 0 - Recreational Drug Use Recreational Drug Use: No ED ROS GENERAL - Review of Systems Review Of Systems: See Below Constitutional: Reports: No Symptoms HEENT: Reports: No Symptoms Respiratory: Reports: No Symptoms Cardiovascular: Reports: No Symptoms Endocrine: Reports: No Symptoms GI/Abdominal: Reports: Other (pt does not have pain in her abdoman. ) : Reports: No Symptoms Musculoskeletal: Reports: No Symptoms Skin: Reports: No Symptoms Neurological: Reports: No Symptoms Psychiatric: Reports: No Symptoms ED EXAM, GI/ABD - Physical Exam Exam: See Below Text/Narrative:: Pt arrived with severe rectal pain. She has not been having normal bms. Exam Limited By: No Limitations General Appearance: Alert, Anxious Eyes: Bilateral: Normal Appearance, EOMI Ears: Normal TMs Nose: Normal Inspection Throat/Mouth: Normal Inspection Head: Atraumatic Neck: Normal Inspection Respiratory/Chest: No Respiratory Distress Cardiovascular: Regular Rate, Rhythm Rectal (Female) Exam: Other (pt has redness around he rectum. She has one hemmoroid that is slightly swollen. She some hard stool up in the rectum. ) Extremities: Normal Inspection Neurological: Alert, Oriented, Normal Cognition Course - Vital Signs Last Recorded V/S: Last Vital Signs Temp 97.2 F 11/05/16 16:00 Pulse 94 11/05/16 16:00 Resp 18 11/05/16 16:00 BP 119/65 11/05/16 16:00 Pulse Ox 96 11/05/16 16:00 - Orders/Labs/Meds Orders: Active Orders 24 hr Category Date Time Status Enema [RC] ASDIRECTED Care 11/05/16 16:59 Inactive Labs: Laboratory Tests 11/05/16 11/05/16 Range/Units 16:56 16:56 WBC 8.2 (4.5-11.0) K/uL RBC 4.89 (3.30-5.50) M/uL Hgb 14.5 (12.0-15.0) g/dL Hct 43.5 (36.0-48.0) % MCV 89 (80-98) fL MCH 30 (27-31) pg MCHC 33 (32-36) % Plt Count 256 (150-400) K/uL Neut % (Auto) 73 H (36-66) % Lymph % (Auto) 14 L (24-44) % Hitchcock % (Auto) 12 H (2-6) % Eos % (Auto) 1 L (2-4) % Baso % (Auto) 0 (0-1) % Sodium 135 L (140-148) mmol/L Potassium 3.9 (3.6-5.2) mmol/L Chloride 102 (100-108) mmol/L Carbon Dioxide 26 (21-32) mmol/L Anion Gap 10.9 (5.0-14.0) mmol/L BUN 14 D (7-18) mg/dL Creatinine 0.9 (0.6-1.0) mg/dL Est Cr Clr Drug Dosing TNP Estimated GFR (MDRD) 60 (>60) Glucose 99 (74-106) mg/dL Calcium 10.1 (8.5-10.1) mg/dL Meds: Medications Discontinued Medications Generic Name Dose Route Start Last Admin Trade Name Ariel PRN Reason Stop Dose Admin Lidocaine HCl 3 ml 11/05/16 16:56 11/05/16 17:07 Xylocaine 4% Top Soln MUCMEM 11/05/16 16:57 3 ml ONETIME ONE Administration - Re-Assessments/Exams Free Text/Narrative Re-Assessment/Exam: 11/05/16 18:06 pt has had normal lab work. Departure - Departure Time of Disposition: 18:16 Disposition: Home, Self-Care 01 Condition: Fair Clinical Impression: Constipation, Rectal pain - Discharge Information Referrals: Stas To MD [Primary Care Provider] - Forms: ED Department Discharge Care Plan Goals: anusol hc supp use twice daily, nupercainal ointment to the rectal area, warm packs to the rectum, , cont the senna. , encourage fluids, l prunes daily <Rogelio Kramer - Last Filed: 11/05/16 19:36> Course - Re-Assessments/Exams Free Text/Narrative Re-Assessment/Exam: 11/05/16 19:34 After several enemas the patient had a fairly significant bowel movement but was still very uncomfortable with rectal discomfort. She was given a prescription for Anusol suppositories and encouraged to take senna to keep her stool soft.
== END 2016-11-05 20:10 | disposition home or self-care (01) ==
LOC: JP.ED 15:32
DX: K59.00 Constipation, unspecified (principal); E66.9 Obesity, unspecified; M19.90 Unspecified osteoarthritis, unspecified site; K62.89 Other specified diseases of anus and rectum; K21.9 Gastro-esophageal reflux disease without esophagitis; Z98.49 Cataract extraction status, unspecified eye; Z90.49 Acquired absence of other specified parts of digestive tract; Z98.890 Other specified postprocedural states; Z98.84 Bariatric surgery status; Z79.899 Other long term (current) drug therapy
CPT/HCPCS: 36415; 80048; 85025; 99282; 99284; A9270

== ENCOUNTER 2018-06-15 14:10 | Inpatient (IN) | payer MEDICARE, BC ==
[2018-06-15] MEDS ORDERED: traMADol 50 MG Tab PO PRN (14:28)
[2018-06-15] MEDS ORDERED: Acetaminophen 325 MG Tab PO PRN (14:30)
[2018-06-15] MEDS ORDERED: Sodium Chloride 0.9% 10 ML Syringe FLUSH PRN (14:30)
[2018-06-15] MEDS ORDERED: Ondansetron 4 MG/2 ML SDV IV PRN (14:30)
[2018-06-15] MEDS: Sodium Chloride 0.9% 1,000 ML IV SCH (16:01)
[2018-06-15] MEDS: Lactobacillus Rhamnosus GG (Probiotic) Cap PO SCH ×2 (16:02→20:16)
--- NOTE | 2018-06-15 16:02 | PCM.HP ---
H&P History of Present Illness - General Date of Service: 06/15/18 Admit Problem/Dx: Admission Diagnosis/Problem Admission Diagnosis/Problem Pneumonia Source of Information: Patient, Provider, RN Notes Reviewed History Limitations: Reports: No Limitations - History of Present Illness Initial Comments - Free Text/Narative: Ms. Bauman is an 87-year-old woman who is admitted as a direct admission from the clinic with progressive weakness, shortness of breath, fever, secondary to right lung pneumonia. She reports that she's not felt well over the past week with cough and progressive increase in shortness of breath, fevers over the past few days. She presented to the walk-in clinic today, white blood cell count is normal, influenza antigens are negative, chest x-ray shows a right lower lung infiltrate. Vital signs have been stable and she has adequate oxygenation on room air. Abdominal Pain Score (Numeric/FACES): 6 - Related Data Allergies/Adverse Reactions: Allergies Allergy/AdvReac Type Severity Reaction Status Date / Time No Known Allergies Allergy Verified 10/04/16 14:59 Home Medications: Home Meds Acetaminophen [Tylenol] 650 mg PO Q6H PRN 09/18/16 [History] Cyanocobalamin (Vitamin B12) [Vitamin B12] 1,000 mcg PO DAILY 09/18/16 [History] traMADol [Ultram] 50 mg PO Q4H PRN #30 tablet 09/26/16 [Rx] B12/Levomefolate Calcium/B-6 [Foltx Tablet] 1 each PO WEEKLY 06/15/18 [History] Cholecalciferol (Vitamin D3) [Vitamin D] 5,000 unit PO DAILY 06/15/18 [History] Multivitamin [Multi-Vitamin Daily] 1 tab PO DAILY 06/15/18 [History] Oxybutynin 5 mg PO 06/15/18 [History] Papain [Papaya] 100 mg PO PRN 06/15/18 [History] Sennosides [Senna] 2 tab PO DAILY PRN 06/15/18 [History] Past Medical History HEENT History: Reports: Cataract, Hard of Hearing, Impaired Vision Other HEENT History: wears glasses Cardiovascular History: Reports: SOB on Exertion, Syncope Gastrointestinal History: Reports: Cholelithiasis, Chronic Constipation, Gastritis, GERD 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: Musculoskeletal History: Reports: Arthritis, Back Pain, Chronic, Fracture Other Musculoskeletal History: rib fx 2 different times Neurological History: Reports: Headaches, Chronic Endocrine/Metabolic History: Reports: Obesity/BMI 30+, Vitamin D Deficiency Dermatologic History: Reports: None - Infectious Disease History Infectious Disease History: Reports: Chicken Pox, Measles, Mumps - Past Surgical History HEENT Surgical History: Reports: Cataract Surgery GI Surgical History: Reports: Appendectomy, Bariatric Procedure, Cholecystectomy , Colonoscopy, EGD, Hernia, Abdominal, Obed Fundoplication, Other (See Below) Musculoskeletal Surgical History: Reports: Arthroscopic Knee, Arthroscopic Procedure, Shoulder Surgery Other Musculoskeletal Surgeries/Procedures:: Bilateral knee surgery Dermatological Surgical History: Reports: Skin Biopsy Social & Family History - Family History Family Medical History: Noncontributory Cardiac: Reports: CAD, ND Neurological: Reports: Parkinson's Oncologic: Reports: Lymphoma - Tobacco Use Smoking Status *Q: Never Smoker Second Hand Smoke Exposure: No - Caffeine Use Caffeine Use: Reports: None - Recreational Drug Use Recreational Drug Use: No H&P Review of Systems - Review of Systems: Review Of Systems: See Below General: Reports: Fever, Chills, Weakness, Decreased Appetite HEENT: Reports: No Symptoms Pulmonary: Reports: Shortness of Breath, Cough, Sputum. Denies: Wheezing, Pleuritic Chest Pain, Hemoptysis Cardiovascular: Reports: Dyspnea on Exertion. Denies: Chest Pain, Palpitations , Orthopnea, PND, Edema, Lightheadedness Gastrointestinal: Reports: No Symptoms Genitourinary: Reports: No Symptoms Musculoskeletal: Reports: No Symptoms Skin: Reports: No Symptoms Psychiatric: Reports: Confusion, Hallucinations (Visual) Neurological: Reports: Confusion, Weakness. Denies: Trouble Speaking Hematologic/Lymphatic: Reports: No Symptoms Immunologic: Reports: No Symptoms Exam - Exam Exam: See Below - Vital Signs Vital Signs: Last Vital Signs Temp 96.8 F 06/15/18 14:11 Pulse 63 06/15/18 14:11 Resp 20 06/15/18 14:11 BP 143/64 H 06/15/18 14:11 Pulse Ox 94 L 06/15/18 14:11 Weight: 139 lb - Exam Quality Assessment: DVT Prophylaxis General: Alert, Cooperative, Mild Distress HEENT: Conjunctiva Clear, Hearing Intact, Normal Nasal Septum, Posterior Pharynx Clear, Pupils Equal. No: Mucosa Moist & Edie Neck: Supple, Trachea Midline, +2 Carotid Pulse wo Bruit Lungs: Clear to Auscultation, Normal Respiratory Effort. No: Rales, Rhonchi, Wheezing Cardiovascular: Regular Rate, Regular Rhythm, Normal S1, Normal S2. No: Systolic Murmur, Diastolic Murmur GI/Abdominal Exam: Soft, Non-Tender, No Organomegaly, No Distention Back Exam: Normal Inspection, Full Range of Motion Extremities: Non-Tender, No Pedal Edema Skin: Warm, Dry, Intact Neurological: Cranial Nerves Intact, Strength Equal Bilateral, Normal Speech, Normal Tone, Sensation Intact. No: Focal Deficit Neuro Extensive - Mental Status: Alert, Oriented x3, Normal Mood/Affect, Normal Cognition, Memory Intact *Q Meaningful Use (ADM) - VTE Risk Assess *Q Each Risk Factor Represents 1 Point: Obesity ( BMI > 25 kg/m2), Serious lung disease including pneumonia Total Score 1 Point Risk Factors: 2 Each Risk Factor Represents 2 Points: None Total Score 2 Point Risk Factors: 0 Each Risk Factor Represents 3 Points: Age 75 Years or Greater Total Score 3 Point Risk Factors: 3 Each Risk Factor Represents 5 Points: None Total Score 5 Point Risk Factors: 0 Venous Thromboembolism Risk Factor Score *Q: 5 Problem List Initiated/Reviewed/Updated: Yes Orders Last 24hrs: Active Orders 24 hr Category Date Time Status Patient Status [ADT] Routine ADT 06/15/18 14:30 Active Ambulate [RC] QID Care 06/15/18 14:30 Active Height and Weight [RC] DAILY Care 06/15/18 14:30 Active Intake and Output [RC] QSHIFT Care 06/15/18 14:30 Active Notify Provider Vital Signs [RC] ASDIRECTED Care 06/15/18 14:30 Active Oxygen Therapy [RC] PRN Care 06/15/18 14:30 Active Peripheral IV Care [RC] . DIRECTED Care 06/15/18 14:36 Active RT Aerosol Therapy [RC] ASDIRECTED Care 06/15/18 14:36 Active Up With Assistance [RC] ASDIRECTED Care 06/15/18 14:30 Active Up to Chair [RC] QID Care 06/15/18 14:30 Active VTE/DVT Education [RC] Per Unit Routine Care 06/15/18 14:30 Active Vaccines to be Administered [RC] PER UNIT ROUTINE Care 06/15/18 14:30 Active Vital Signs [RC] Q4H Care 06/15/18 14:30 Active Regular Diet [DIET] Diet 06/15/18 Lunch Active CBC WITH AUTO DIFF [HEME] AM Lab 06/16/18 05:11 Ordered COMPREHENSIVE METABOLIC PN,CMP [CHEM] AM Lab 06/16/18 05:11 Ordered CULTURE BLOOD [BC] Stat Lab 06/15/18 14:45 Received CULTURE BLOOD [BC] Stat Lab 06/15/18 14:55 Received CULTURE RESPIRATORY + SMEAR [RM] Stat Lab 06/15/18 14:30 Ordered MAGNESIUM [CHEM] AM Lab 06/16/18 05:11 Ordered UA W/MICROSCOPIC [URIN] Stat Lab 06/15/18 14:30 Ordered Acetaminophen [Tylenol] Med 06/15/18 14:30 Active 650 mg PO Q4H PRN Albuterol [Proventil Neb Soln] Med 06/15/18 14:30 Active 2.5 mg NEB Q4H PRN Azithromycin [Zithromax] 500 mg Med 06/15/18 17:00 Active Sodium Chloride 0.9% [Normal Saline] 250 ml IV Q24H Diphth,Pertuss(Acell),Tet Vac [Adacel] Med 06/16/18 15:30 Once 0.5 ml IM .ONCE ONE Docusate Sodium/Sennosides [Senna Plus] Med 06/15/18 14:30 Active 1 tab PO BID PRN Enoxaparin [Lovenox] Med 06/15/18 21:00 Active 40 mg SUBCUT Q24H Lactobacillus Rhamnosus GG [Culturelle] Med 06/15/18 16:00 Active 1 cap PO BID Melatonin Med 06/15/18 21:00 Active 9 mg PO BEDTIME Ondansetron [Zofran] Med 06/15/18 14:30 Active 4 mg IV Q4H PRN Oxybutynin Med 06/15/18 14:30 Unverified DOSE UNIT RTE FREQ Sodium Chloride 0.9% [Normal Saline] 1,000 ml Med 06/15/18 14:30 Active IV ASDIRECTED Sodium Chloride 0.9% [Saline Flush] Med 06/15/18 14:30 Active 10 ml FLUSH ASDIRECTED PRN cefTRIAXone [Rocephin] 1 gm Med 06/15/18 16:00 Active Sodium Chloride 0.9% [Normal Saline] 50 ml IV Q24H traMADol [Ultram] Med 06/15/18 14:28 Active 50 mg PO Q4H PRN Blood Culture x2 Reflex Set [OM.PC] Stat Oth 06/15/18 14:35 Ordered Peripheral IV Insertion Adult [OM.PC] Routine Oth 06/15/18 14:30 Ordered Resuscitation Status Routine Resus Stat 06/15/18 14:30 Ordered Medication Orders Acetaminophen (Tylenol) 650 mg PO Q4H PRN PRN Reason: Pain (Mild 1-3)/fever Albuterol (Proventil Neb Soln) 2.5 mg NEB Q4H PRN PRN Reason: Shortness Of Breath/wheezing Diphtheria/Tetanus/Acell Pertussis (Adacel) 0.5 ml IM .ONCE ONE Stop: 06/16/18 15:31 Enoxaparin Sodium (Lovenox) 40 mg SUBCUT Q24H [facility] Azithromycin 500 mg/ Sodium (Chloride) 250 mls @ 250 mls/hr IV Q24H [facility] Ceftriaxone Sodium 1 gm/ (Sodium Chloride) 50 mls @ 100 mls/hr IV Q24H [facility] Sodium Chloride (Normal Saline) 1,000 mls @ 125 mls/hr IV ASDIRECTED [facility] Lactobacillus Rhamnosus (Culturelle) 1 cap PO BID [facility] Melatonin (Melatonin) 9 mg PO BEDTIME [facility] Ondansetron HCl (Zofran) 4 mg IV Q4H PRN PRN Reason: Nausea/Vomiting Senna/Docusate Sodium (Senna Plus) 1 tab PO BID PRN PRN Reason: Constipation Sodium Chloride (Saline Flush) 10 ml FLUSH ASDIRECTED PRN PRN Reason: Keep Vein Open Tramadol HCl (Ultram) 50 mg PO Q4H PRN PRN Reason: Pain Assessment/Plan Comment:: ASSESSMENT AND PLAN RIGHT LUNG PNEUMONIA-no evidence of associated sepsis, progressive symptoms over the past week. She has failed outpatient therapy with azithromycin. -IV fluids for hydration -Nebulized albuterol as needed -Blood and sputum cultures pending -IV Rocephin and levofloxacin HYPERCALCEMIA-likely secondary to dehydration, calcium level at the clinic was 11.1 -IV fluids for hydration -Recheck calcium level in a.m. MAINTENANCE ISSUES -DVT prophylaxis; Lovenox 40 mg subcutaneous daily -GI prophylaxis; not indicated -Connors catheter; not indicated -Nutrition; regular diet -Nicotine dependence; not required CODE STATUS-FULL CODE ADMISSION STATUS-patient will be admitted to inpatient status, expect at least a 2 night hospital stay for evaluation and management of problems as outlined above. At the time of this admission I do not reasonably expected evaluation and management of this problem will require more than a 96 hour hospital stay. DISPOSITION-anticipate discharge to home after the hospital stay. PRIMARY CARE PROVIDER-Dr. To
[2018-06-15] MEDS: cefTRIAXone 1 GM in Sodium Chloride 0.9% 50 ML IV SCH (16:06)
[2018-06-15] MEDS ORDERED: Levofloxacin/Dextrose 5%-Water 750 MG in Premix Bag 1 BAG IV SCH (17:00)
[2018-06-15] MEDS ORDERED: Azithromycin 500 MG in Sodium Chloride 0.9% 250 ML IV SCH (17:00)
[2018-06-15] MEDS: Enoxaparin 40 MG/0.4 ML Syringe SUBCUT SCH (20:16)
[2018-06-15] MEDS: Melatonin 3 MG Tab PO SCH (20:16)
[2018-06-15] MEDS: Oxybutynin 5 MG Tab PO SCH (20:16)
[2018-06-16] MEDS: Sodium Chloride 0.9% 1,000 ML IV SCH ×2 (02:46→09:23)
[2018-06-16] MEDS ORDERED: Magnesium Sulfate/Water 2 GM in Premix Bag 1 BAG IV ONE (09:00)
[2018-06-16] MEDS ORDERED: Potassium Chloride 20 MEQ Tab.ER PO ONE (09:00)
[2018-06-16] MEDS: Lactobacillus Rhamnosus GG (Probiotic) Cap PO SCH ×2 (09:17→20:06)
[2018-06-16] MEDS: Oxybutynin 5 MG Tab PO SCH ×2 (09:17→20:07)
[2018-06-16] MEDS: Magnesium Oxide 400 MG Tab PO SCH ×2 (09:18→20:07)
--- NOTE | 2018-06-16 11:44 | PCM.PN ---
- General Info Date of Service: 06/16/18 Subjective Update: Ms. Bauman has remained fairly stable since admission, continues to feel short of breath with ongoing cough. Vital signs have been stable and she has remained afebrile since admission. Oxygenation is been adequate with current level of supplemental oxygen. Functional Status: Reports: Urinating - Review of Systems General: Reports: Weakness. Denies: Fever, Chills Pulmonary: Reports: Shortness of Breath, Cough, Sputum, Wheezing. Denies: Hemoptysis Cardiovascular: Reports: Dyspnea on Exertion. Denies: Chest Pain, Palpitations , Orthopnea, PND, Edema, Lightheadedness Gastrointestinal: Reports: No Symptoms - Patient Data Vitals - Most Recent: Last Vital Signs Temp 97.3 F 06/16/18 10:40 Pulse 70 06/16/18 10:40 Resp 16 06/16/18 10:40 BP 116/48 L 06/16/18 10:40 Pulse Ox 96 06/16/18 10:40 Weight - Most Recent: 142 lb I&O - Last 24 Hours: Intake & Output 06/15/18 06/16/18 06/16/18 22:59 06:59 14:59 Intake Total 400 1381 200 Output Total 200 625 Balance 200 756 200 Lab Results Last 24 Hours: Laboratory Results - last 24 hr 06/15/18 06/16/18 06/16/18 Range/Units 14:30 05:00 05:00 WBC 7.7 (4.5-11.0) K/uL RBC 4.27 (3.30-5.50) M/uL Hgb 12.7 (12.0-15.0) g/dL Hct 38.2 (36.0-48.0) % MCV 90 (80-98) fL MCH 30 (27-31) pg MCHC 33 (32-36) % Plt Count 222 (150-400) K/uL Neut % (Auto) 78 H (36-66) % Lymph % (Auto) 10 L (24-44) % [place] % (Auto) 10 H (2-6) % Eos % (Auto) 1 L (2-4) % Baso % (Auto) 0 (0-1) % Sodium 137 L (140-148) mmol/L Potassium 3.5 L (3.6-5.2) mmol/L Chloride 103 (100-108) mmol/L Carbon Dioxide 24 (21-32) mmol/L Anion Gap 13.5 (5.0-14.0) mmol/L BUN 13 (7-18) mg/dL Creatinine 0.8 (0.6-1.0) mg/dL Est Cr Clr Drug Dosing 36.26 mL/min Estimated GFR (MDRD) > 60 (>60) Glucose 90 (74-106) mg/dL Calcium 10.0 (8.5-10.1) mg/dL Magnesium 1.7 L (1.8-2.4) mg/dL Total Bilirubin 0.7 (0.2-1.0) mg/dL AST 17 (15-37) U/L ALT 16 (12-78) U/L Alkaline Phosphatase 70 (46-116) U/L Total Protein 6.2 L (6.4-8.2) g/dL Albumin 2.3 L (3.4-5.0) g/dL Globulin 3.9 H (2.3-3.5) g/dL Albumin/Globulin Ratio 0.6 L (1.2-2.2) Urine Color [place] Urine Appearance Clear Urine pH 5.0 (4.5-8.0) Ur Specific [place] 1.020 (1.008-1.030) Urine Protein Negative (NEGATIVE) mg/dL Urine Glucose (UA) Normal (NEGATIVE) mg/dL Urine Ketones 50 H (NEGATIVE) mg/dL Urine Occult Blood Negative (NEGATIVE) Urine Nitrite Negative (NEGATIVE) Urine Bilirubin Negative (NEGATIVE) Urine Urobilinogen Normal (NORMAL) mg/dL Ur Leukocyte Esterase Negative (NEGATIVE) Urine RBC Not seen (0-5) Urine WBC 0-5 (0-5) Ur Epithelial Cells Few Amorphous Sediment Few Urine Bacteria Many Urine Mucus Numerous Med Orders - Current: Current Medications Acetaminophen (Tylenol) 650 mg PO Q4H PRN PRN Reason: Pain (Mild 1-3)/fever Last Admin: 06/15/18 20:16 Dose: 650 mg Albuterol (Proventil Neb Soln) 2.5 mg NEB Q4H PRN PRN Reason: Shortness Of Breath/wheezing Diphtheria/Tetanus/Acell Pertussis (Adacel) 0.5 ml IM .ONCE ONE Stop: 06/16/18 15:31 Enoxaparin Sodium (Lovenox) 40 mg SUBCUT Q24H [facility] Last Admin: 06/15/18 20:16 Dose: 40 mg Guaifenesin/Codeine Phosphate (Robitussin Ac) 10 ml PO Q4H PRN PRN Reason: Cough Ceftriaxone Sodium 1 gm/ (Sodium Chloride) 50 mls @ 100 mls/hr IV Q24H [facility] Last Admin: 06/15/18 16:06 Dose: 100 mls/hr Levofloxacin/Dextrose 750 mg/ (Premix) 150 mls @ 100 mls/hr IV Q48H [facility] Lactobacillus Rhamnosus (Culturelle) 1 cap PO BID [facility] Last Admin: 06/16/18 09:17 Dose: 1 cap Magnesium Oxide (Magnesium Oxide) 400 mg PO BID [facility] Last Admin: 06/16/18 09:18 Dose: 400 mg Melatonin (Melatonin) 9 mg PO BEDTIME [facility] Last Admin: 06/15/18 20:16 Dose: 9 mg Ondansetron HCl (Zofran) 4 mg IV Q4H PRN PRN Reason: Nausea/Vomiting Oxybutynin Chloride (Oxybutynin) 5 mg PO BID [facility] Last Admin: 06/16/18 09:17 Dose: 5 mg Senna/Docusate Sodium (Senna Plus) 1 tab PO BID PRN PRN Reason: Constipation Sodium Chloride (Saline Flush) 10 ml FLUSH ASDIRECTED PRN PRN Reason: Keep Vein Open Tramadol HCl (Ultram) 50 mg PO Q4H PRN PRN Reason: Pain Last Admin: 06/16/18 09:26 Dose: 50 mg Discontinued Medications Azithromycin 500 mg/ Sodium (Chloride) 250 mls @ 250 mls/hr IV Q24H [facility] Sodium Chloride (Normal Saline) 1,000 mls @ 125 mls/hr IV ASDIRECTED [facility] Last Admin: 06/16/18 09:23 Dose: 125 mls/hr Levofloxacin/Dextrose 750 mg/ (Premix) 150 mls @ 100 mls/hr IV Q24H [facility] Last Admin: 06/15/18 17:02 Dose: 100 mls/hr Magnesium Sulfate 2 gm/ Premix 50 mls @ 25 mls/hr IV ONETIME ONE Stop: 06/16/18 10:59 Last Admin: 06/16/18 09:17 Dose: 25 mls/hr Potassium Chloride (Klor-Con M20) 40 meq PO ONETIME ONE Stop: 02/05/19 09:01 Last Admin: 06/16/18 09:17 Dose: 40 meq - Exam Quality Assessment: Supplemental Oxygen, DVT Prophylaxis General: Alert, Oriented, Cooperative, Mild Distress Lungs: Decreased Breath Sounds, Rhonchi, Wheezing. No: Rales, Rub Cardiovascular: Regular Rate, Regular Rhythm, No Murmurs GI/Abdominal Exam: Soft, Non-Tender, No Organomegaly, No Distention Extremities: Non-Tender, No Pedal Edema - Problem List Review Problem List Initiated/Reviewed/Updated: Yes - My Orders Last 24 Hours: My Active Orders 06/15/18 14:28 traMADol [Ultram] 50 mg PO Q4H PRN 06/15/18 14:30 Patient Status [ADT] Routine Ambulate [RC] QID Height and Weight [RC] DAILY Intake and Output [RC] QSHIFT Notify Provider Vital Signs [RC] ASDIRECTED Oxygen Therapy [RC] PRN Up With Assistance [RC] ASDIRECTED Up to Chair [RC] QID VTE/DVT Education [RC] Per Unit Routine Vaccines to be Administered [RC] PER UNIT ROUTINE Vital Signs [RC] Q4H CULTURE RESPIRATORY + SMEAR [RM] Stat Acetaminophen [Tylenol] 650 mg PO Q4H PRN Albuterol [Proventil Neb Soln] 2.5 mg NEB Q4H PRN Docusate Sodium/Sennosides [Senna Plus] 1 tab PO BID PRN Ondansetron [Zofran] 4 mg IV Q4H PRN Sodium Chloride 0.9% [Saline Flush] 10 ml FLUSH ASDIRECTED PRN Peripheral IV Insertion Adult [OM.PC] Routine Resuscitation Status Routine 06/15/18 14:35 Blood Culture x2 Reflex Set [OM.PC] Stat 06/15/18 14:36 Peripheral IV Care [RC] . DIRECTED RT Aerosol Therapy [RC] ASDIRECTED 06/15/18 14:45 CULTURE BLOOD [BC] Stat 06/15/18 14:55 CULTURE BLOOD [BC] Stat 06/15/18 16:00 Lactobacillus Rhamnosus GG [Culturelle] 1 cap PO BID cefTRIAXone [Rocephin] 1 gm Sodium Chloride 0.9% [Normal Saline] 50 ml IV Q24H 06/15/18 21:00 Enoxaparin [Lovenox] 40 mg SUBCUT Q24H Melatonin 9 mg PO BEDTIME Oxybutynin 5 mg PO BID 06/15/18 Lunch Regular Diet [DIET] 06/16/18 09:00 Magnesium Oxide 400 mg PO BID 06/16/18 11:41 Codeine/guaiFENesin [Robitussin AC] 10 ml PO Q4H PRN Convert IV to Saline Lock [OM.PC] Routine 06/16/18 15:30 Diphth,Pertuss(Acell),Tet Vac [Adacel] 0.5 ml IM .ONCE ONE 06/17/18 05:00 BASIC METABOLIC PANEL,BMP [CHEM] Timed MAGNESIUM [CHEM] Timed 06/17/18 17:00 Levofloxacin/Dextrose 5%-Water [Levaquin in D5W 750 MG/150 ML] 750 mg Premix Bag 1 bag IV Q48H - Plan Plan:: ASSESSMENT AND PLAN RIGHT LUNG PNEUMONIA-continues to experience shortness of breath and cough, stable since admission -Saline lock IV -Nebulized albuterol as needed -Blood and sputum cultures pending -IV Rocephin and levofloxacin HYPERCALCEMIA-resolved with hydration MAINTENANCE ISSUES -DVT prophylaxis; Lovenox 40 mg subcutaneous daily -GI prophylaxis; not indicated -Connors catheter; not indicated -Nutrition; regular diet -Nicotine dependence; not required CODE STATUS-FULL CODE ADMISSION STATUS-patient will be admitted to inpatient status, expect at least a 2 night hospital stay for evaluation and management of problems as outlined above. At the time of this admission I do not reasonably expected evaluation and management of this problem will require more than a 96 hour hospital stay. DISPOSITION-anticipate discharge to home after the hospital stay. PRIMARY CARE PROVIDER-Dr. To
[2018-06-16] MEDS ORDERED: Diphtheria,Pertussis(Acell),Tetanus Vaccine 0.5 ML SDV IM ONE (15:30)
[2018-06-16] MEDS: cefTRIAXone 1 GM in Sodium Chloride 0.9% 50 ML IV SCH (15:47)
[2018-06-16] MEDS: Enoxaparin 40 MG/0.4 ML Syringe SUBCUT SCH (20:06)
[2018-06-16] MEDS: Melatonin 3 MG Tab PO SCH (20:07)
[2018-06-17] MEDS: Magnesium Oxide 400 MG Tab PO SCH ×2 (09:16→20:52)
[2018-06-17] MEDS: Oxybutynin 5 MG Tab PO SCH ×2 (09:16→20:52)
[2018-06-17] MEDS: Codeine/guaiFENesin 100mg-10 MG/5 ML Syrup 10 ML Cup PO PRN ×3 (09:16→22:09)
[2018-06-17] MEDS: Lactobacillus Rhamnosus GG (Probiotic) Cap PO SCH ×2 (09:16→20:51)
--- NOTE | 2018-06-17 12:40 | PCM.PN ---
- General Info Date of Service: 06/17/18 Subjective Update: Ms. Bauamn has been stable since yesterday with no significant temperature elevations. She continues to experience symptoms of shortness of breath and cough although they do seem modestly improved since yesterday. Remains fairly weak with a poor appetite. Functional Status: Reports: Urinating - Review of Systems General: Reports: Weakness. Denies: Fever, Chills Pulmonary: Reports: Shortness of Breath, Cough, Wheezing. Denies: Pleuritic Chest Pain, Sputum, Hemoptysis Cardiovascular: Reports: Dyspnea on Exertion. Denies: Chest Pain, Palpitations , Orthopnea, PND, Edema, Lightheadedness Gastrointestinal: Reports: No Symptoms - Patient Data Vitals - Most Recent: Last Vital Signs Temp 98.1 F 06/17/18 11:36 Pulse 61 06/17/18 11:36 Resp 20 06/17/18 11:36 BP 160/90 H 06/17/18 11:36 Pulse Ox 98 06/17/18 11:36 Weight - Most Recent: 144 lb 9.6 oz I&O - Last 24 Hours: Intake & Output 06/16/18 06/17/18 06/17/18 22:59 06:59 14:59 Intake Total 250 Output Total 200 900 Balance 50 -900 Lab Results Last 24 Hours: Laboratory Results - last 24 hr 06/17/18 Range/Units 05:17 Sodium 138 L (140-148) mmol/L Potassium 4.3 (3.6-5.2) mmol/L Chloride 107 (100-108) mmol/L Carbon Dioxide 25 (21-32) mmol/L Anion Gap 10.3 (5.0-14.0) mmol/L BUN 9 (7-18) mg/dL Creatinine 0.8 (0.6-1.0) mg/dL Est Cr Clr Drug Dosing 36.26 mL/min Estimated GFR (MDRD) > 60 (>60) Glucose 93 (74-106) mg/dL Calcium 9.9 (8.5-10.1) mg/dL Magnesium 1.9 (1.8-2.4) mg/dL [place] Results Last 24 Hours: Microbiology 06/15/18 14:55 Aerobic Blood Culture - Preliminary Blood - Arm, Left NO GROWTH AFTER 1 DAY Anaerobic Blood Culture - Preliminary NO GROWTH AFTER 1 DAY 06/15/18 14:45 Aerobic Blood Culture - Preliminary Blood - Arm, Left NO GROWTH AFTER 1 DAY Anaerobic Blood Culture - Preliminary NO GROWTH AFTER 1 DAY Med Orders - Current: Current Medications Acetaminophen (Tylenol) 650 mg PO Q4H PRN PRN Reason: Pain (Mild 1-3)/fever Last Admin: 06/15/18 20:16 Dose: 650 mg Albuterol (Proventil Neb Soln) 2.5 mg NEB Q4H PRN PRN Reason: Shortness Of Breath/wheezing Diphtheria/Tetanus/Acell Pertussis (Adacel) 0.5 ml IM .ONCE ONE Stop: 06/17/18 14:01 Enoxaparin Sodium (Lovenox) 40 mg SUBCUT Q24H [facility] Last Admin: 06/16/18 20:06 Dose: 40 mg Guaifenesin/Codeine Phosphate (Robitussin Ac) 10 ml PO Q4H PRN PRN Reason: Cough Last Admin: 06/17/18 09:16 Dose: 10 ml Ceftriaxone Sodium 1 gm/ (Sodium Chloride) 50 mls @ 100 mls/hr IV Q24H [facility] Last Admin: 06/16/18 15:47 Dose: 100 mls/hr Levofloxacin/Dextrose 750 mg/ (Premix) 150 mls @ 100 mls/hr IV Q48H [facility] Lactobacillus Rhamnosus (Culturelle) 1 cap PO BID [facility] Last Admin: 06/17/18 09:16 Dose: 1 cap Magnesium Oxide (Magnesium Oxide) 400 mg PO BID [facility] Last Admin: 06/17/18 09:16 Dose: 400 mg Melatonin (Melatonin) 9 mg PO BEDTIME [facility] Last Admin: 06/16/18 20:07 Dose: 9 mg Ondansetron HCl (Zofran) 4 mg IV Q4H PRN PRN Reason: Nausea/Vomiting Oxybutynin Chloride (Oxybutynin) 5 mg PO BID [facility] Last Admin: 06/17/18 09:16 Dose: 5 mg Senna/Docusate Sodium (Senna Plus) 1 tab PO BID PRN PRN Reason: Constipation Sodium Chloride (Saline Flush) 10 ml FLUSH ASDIRECTED PRN PRN Reason: Keep Vein Open Tramadol HCl (Ultram) 50 mg PO Q4H PRN PRN Reason: Pain Last Admin: 06/16/18 09:26 Dose: 50 mg Discontinued Medications Azithromycin 500 mg/ Sodium (Chloride) 250 mls @ 250 mls/hr IV Q24H [facility] Sodium Chloride (Normal Saline) 1,000 mls @ 125 mls/hr IV ASDIRECTED [facility] Last Admin: 06/16/18 09:23 Dose: 125 mls/hr Levofloxacin/Dextrose 750 mg/ (Premix) 150 mls @ 100 mls/hr IV Q24H [facility] Last Admin: 06/15/18 17:02 Dose: 100 mls/hr Magnesium Sulfate 2 gm/ Premix 50 mls @ 25 mls/hr IV ONETIME ONE Stop: 06/16/18 10:59 Last Admin: 06/16/18 09:17 Dose: 25 mls/hr Potassium Chloride (Klor-Con M20) 40 meq PO ONETIME ONE Stop: 06/16/18 09:01 Last Admin: 06/16/18 09:17 Dose: 40 meq - Exam Quality Assessment: DVT Prophylaxis General: Alert, Oriented, Cooperative, Mild Distress Lungs: Normal Respiratory Effort, Decreased Breath Sounds, Wheezing. No: Rales , Rhonchi, Rub Cardiovascular: Regular Rate, Regular Rhythm, No Murmurs GI/Abdominal Exam: Soft, Non-Tender, No Organomegaly, No Distention Extremities: Non-Tender, No Pedal Edema - Problem List Review Problem List Initiated/Reviewed/Updated: Yes - My Orders Last 24 Hours: My Active Orders 06/16/18 11:41 Codeine/guaiFENesin [Robitussin AC] 10 ml PO Q4H PRN Convert IV to Saline Lock [OM.PC] Routine 06/17/18 14:00 Diphth,Pertuss(Acell),Tet Vac [Adacel] 0.5 ml IM .ONCE ONE 06/17/18 17:00 Levofloxacin/Dextrose 5%-Water [Levaquin in D5W 750 MG/150 ML] 750 mg Premix Bag 1 bag IV Q48H - Plan Plan:: ASSESSMENT AND PLAN RIGHT LUNG PNEUMONIA-modest improvement in symptoms over the last 24 hours, remains fairly weak with poor appetite -Saline lock IV -Nebulized albuterol as needed -Blood and sputum cultures pending -IV Rocephin and levofloxacin HYPERCALCEMIA-resolved with hydration MAINTENANCE ISSUES -DVT prophylaxis; Lovenox 40 mg subcutaneous daily -GI prophylaxis; not indicated -Connors catheter; not indicated -Nutrition; regular diet -Nicotine dependence; not required CODE STATUS-FULL CODE ADMISSION STATUS-patient will be admitted to inpatient status, expect at least a 2 night hospital stay for evaluation and management of problems as outlined above. At the time of this admission I do not reasonably expected evaluation and management of this problem will require more than a 96 hour hospital stay. DISPOSITION-anticipate discharge to home after the hospital stay. PRIMARY CARE PROVIDER-Dr. To
[2018-06-17] MEDS: PAPAYA ENZYME PO SCH ×2 (13:38→17:21)
[2018-06-17] MEDS ORDERED: Diphtheria,Pertussis(Acell),Tetanus Vaccine 0.5 ML SDV IM ONE (14:00)
[2018-06-17] MEDS: cefTRIAXone 1 GM in Sodium Chloride 0.9% 50 ML IV SCH (16:16)
[2018-06-17] MEDS ORDERED: Levofloxacin/Dextrose 5%-Water 750 MG in Premix Bag 1 BAG IV SCH (17:00)
[2018-06-17] MEDS: Melatonin 3 MG Tab PO SCH (20:52)
[2018-06-17] MEDS: Enoxaparin 40 MG/0.4 ML Syringe SUBCUT SCH (20:52)
[2018-06-17] MEDS: Albuterol 0.083% 2.5 MG/3 ML Neb Soln NEB PRN (21:00)
[2018-06-18] MEDS: PAPAYA ENZYME PO SCH ×3 (08:09→16:53)
[2018-06-18] MEDS: Oxybutynin 5 MG Tab PO SCH ×2 (08:43→20:37)
[2018-06-18] MEDS: Lactobacillus Rhamnosus GG (Probiotic) Cap PO SCH ×2 (08:43→20:37)
[2018-06-18] MEDS: Magnesium Oxide 400 MG Tab PO SCH ×2 (08:43→20:37)
[2018-06-18] MEDS ORDERED: Sodium Phosphate,Monobasic/Sodium Phosphate,Dibasic Enema 133 ML Bottle RECTAL PRN (15:24)
--- NOTE | 2018-06-18 15:29 | PCM.PN ---
- General Info Date of Service: 06/18/18 Subjective Update: Ms. Bauman feels moderately improved today with less shortness of breath and cough. With use of cough syrup with codeine she was able to get some sleep last night and her cough also seems to be improved. Level of dyspnea is better and she is been able to be more active, walking in the hallway short distances. Functional Status: Reports: Tolerating Diet, Ambulating, Urinating - Review of Systems General: Reports: No Symptoms, Fever HEENT: Reports: No Symptoms Pulmonary: Reports: Shortness of Breath, Cough, Wheezing. Denies: Pleuritic Chest Pain, Sputum, Hemoptysis Cardiovascular: Reports: Dyspnea on Exertion. Denies: Chest Pain, Palpitations , Orthopnea, PND, Edema, Lightheadedness Gastrointestinal: Reports: Constipation. Denies: Abdominal Pain, Difficulty Swallowing, Hematochezia, Melena, Nausea, Vomiting - Patient Data Vitals - Most Recent: Last Vital Signs Temp 97.8 F 06/18/18 15:00 Pulse 88 06/18/18 15:00 Resp 16 06/18/18 15:00 BP 107/55 L 06/18/18 15:00 Pulse Ox 98 06/18/18 15:00 Weight - Most Recent: 145 lb I&O - Last 24 Hours: Intake & Output 06/18/18 06/18/18 06/18/18 06:59 14:59 22:59 Intake Total 300 240 240 Output Total 1400 150 Balance -1100 90 240 Eitan Results Last 24 Hours: Microbiology 06/15/18 14:55 Aerobic Blood Culture - Preliminary Blood - Arm, Left NO GROWTH AFTER 3 DAYS Anaerobic Blood Culture - Preliminary NO GROWTH AFTER 3 DAYS 06/15/18 14:45 Aerobic Blood Culture - Preliminary Blood - Arm, Left NO GROWTH AFTER 3 DAYS Anaerobic Blood Culture - Preliminary NO GROWTH AFTER 3 DAYS Med Orders - Current: Current Medications Acetaminophen (Tylenol) 650 mg PO Q4H PRN PRN Reason: Pain (Mild 1-3)/fever Last Admin: 06/15/18 20:16 Dose: 650 mg Albuterol (Proventil Neb Soln) 2.5 mg NEB Q4H PRN PRN Reason: Shortness Of Breath/wheezing Last Admin: 06/17/18 21:00 Dose: 2.5 mg Bisacodyl (Dulcolax) 10 mg RECTAL ONETIME ONE Stop: 06/18/18 15:25 Enoxaparin Sodium (Lovenox) 40 mg SUBCUT Q24H [facility] Last Admin: 06/17/18 20:52 Dose: 40 mg Guaifenesin/Codeine Phosphate (Robitussin Ac) 10 ml PO Q4H PRN PRN Reason: Cough Last Admin: 06/17/18 22:09 Dose: 10 ml Ceftriaxone Sodium 1 gm/ (Sodium Chloride) 50 mls @ 100 mls/hr IV Q24H [facility] Last Admin: 06/17/18 16:16 Dose: 100 mls/hr Levofloxacin/Dextrose 750 mg/ (Premix) 150 mls @ 100 mls/hr IV Q48H [facility] Last Admin: 06/17/18 17:24 Dose: 100 mls/hr Lactobacillus Rhamnosus (Culturelle) 1 cap PO BID [facility] Last Admin: 06/18/18 08:43 Dose: 1 cap Magnesium Oxide (Magnesium Oxide) 400 mg PO BID [facility] Last Admin: 06/18/18 08:43 Dose: 400 mg Melatonin (Melatonin) 9 mg PO BEDTIME [facility] Last Admin: 06/17/18 20:52 Dose: 9 mg Papaya Enzyme Tablet (Pom) 0 each PO TIDMEALS [facility] Last Admin: 06/18/18 12:44 Dose: 1 each Ondansetron HCl (Zofran) 4 mg IV Q4H PRN PRN Reason: Nausea/Vomiting Oxybutynin Chloride (Oxybutynin) 5 mg PO BID [facility] Last Admin: 06/18/18 08:43 Dose: 5 mg Senna/Docusate Sodium (Senna Plus) 1 tab PO BID PRN PRN Reason: Constipation Last Admin: 06/18/18 08:47 Dose: 1 tab Sodium Biphosphate/Sodium Phosphate (Fleet Enema) 133 ml RECTAL ONETIME PRN PRN Reason: Constipation Sodium Chloride (Saline Flush) 10 ml FLUSH ASDIRECTED PRN PRN Reason: Keep Vein Open Tramadol HCl (Ultram) 50 mg PO Q4H PRN PRN Reason: Pain Last Admin: 06/16/18 09:26 Dose: 50 mg Discontinued Medications Diphtheria/Tetanus/Acell Pertussis (Adacel) 0.5 ml IM .ONCE ONE Stop: 06/17/18 14:01 Last Admin: 06/17/18 13:34 Dose: 0.5 ml Azithromycin 500 mg/ Sodium (Chloride) 250 mls @ 250 mls/hr IV Q24H [facility] Sodium Chloride (Normal Saline) 1,000 mls @ 125 mls/hr IV ASDIRECTED [facility] Last Admin: 06/16/18 09:23 Dose: 125 mls/hr Levofloxacin/Dextrose 750 mg/ (Premix) 150 mls @ 100 mls/hr IV Q24H [facility] Last Admin: 06/15/18 17:02 Dose: 100 mls/hr Magnesium Sulfate 2 gm/ Premix 50 mls @ 25 mls/hr IV ONETIME ONE Stop: 06/16/18 10:59 Last Admin: 06/16/18 09:17 Dose: 25 mls/hr Potassium Chloride (Klor-Con M20) 40 meq PO ONETIME ONE Stop: 06/16/18 09:01 Last Admin: 06/16/18 09:17 Dose: 40 meq - Exam Quality Assessment: DVT Prophylaxis General: Alert, Oriented, Cooperative, Mild Distress Lungs: Decreased Breath Sounds, Wheezing. No: Crackles, Rales, Rhonchi, Rub Cardiovascular: Regular Rate, Regular Rhythm, Murmurs GI/Abdominal Exam: Soft, Non-Tender, No Organomegaly, No Distention Extremities: Non-Tender, No Pedal Edema - Problem List Review Problem List Initiated/Reviewed/Updated: Yes - My Orders Last 24 Hours: My Active Orders 06/17/18 17:00 Levofloxacin/Dextrose 5%-Water [Levaquin in D5W 750 MG/150 ML] 750 mg Premix Bag 1 bag IV Q48H 06/18/18 15:24 Bisacodyl [Dulcolax] 10 mg RECTAL ONETIME ONE Na Phos,M-B/Na Phos,DI-B [Fleet Enema] 133 ml RECTAL ONETIME PRN - Plan Plan:: ASSESSMENT AND PLAN RIGHT LUNG PNEUMONIA-there has been further improvement in symptoms over last 24 hours with better sleep and less cough. Cultures remain negative thus far -Saline lock IV -Nebulized albuterol as needed -Blood and sputum cultures pending -IV Rocephin and levofloxacin CONSTIPATION -Dulcolax suppository -Fleet enema if no results from suppository HYPERCALCEMIA-resolved with hydration MAINTENANCE ISSUES -DVT prophylaxis; Lovenox 40 mg subcutaneous daily -GI prophylaxis; not indicated -Connors catheter; not indicated -Nutrition; regular diet -Nicotine dependence; not required CODE STATUS-FULL CODE ADMISSION STATUS-patient will be admitted to inpatient status, expect at least a 2 night hospital stay for evaluation and management of problems as outlined above. At the time of this admission I do not reasonably expected evaluation and management of this problem will require more than a 96 hour hospital stay. DISPOSITION-anticipate discharge to home tomorrow with home care services PRIMARY CARE PROVIDER-Dr. To
[2018-06-18] MEDS: cefTRIAXone 1 GM in Sodium Chloride 0.9% 50 ML IV SCH (16:51)
[2018-06-18] MEDS: Bisacodyl 10 MG Supp RECTAL ONE ×2 (16:52→19:29)
[2018-06-18] MEDS: Melatonin 3 MG Tab PO SCH (20:37)
[2018-06-18] MEDS: Enoxaparin 40 MG/0.4 ML Syringe SUBCUT SCH (20:37)
[2018-06-18] MEDS: Albuterol 0.083% 2.5 MG/3 ML Neb Soln NEB PRN (23:05)
[2018-06-19] MEDS: PAPAYA ENZYME PO SCH ×3 (09:42→16:08)
[2018-06-19] MEDS: Lactobacillus Rhamnosus GG (Probiotic) Cap PO SCH ×2 (09:43→20:40)
[2018-06-19] MEDS: Oxybutynin 5 MG Tab PO SCH ×2 (09:43→20:41)
[2018-06-19] MEDS: Magnesium Oxide 400 MG Tab PO SCH ×2 (09:43→20:40)
[2018-06-19] MEDS ORDERED: Magnesium Citrate Solution 296 ML Bottle PO PRN (14:25)
[2018-06-19] MEDS ORDERED: Bisacodyl 5 MG Tab PO ONE (14:30)
--- NOTE | 2018-06-19 15:08 | PCM.PN ---
- General Info Date of Service: 06/19/18 Subjective Update: Ms. Bauman has improved significantly as far as her respiratory status, most total resolution of shortness of breath and cough. She has not had a bowel movement for several days despite having been given a suppository plus a fleets enema yesterday. Functional Status: Reports: Tolerating Diet, Ambulating, Urinating - Review of Systems General: Denies: Fever, Weakness, Chills Pulmonary: Reports: No Symptoms Cardiovascular: Reports: No Symptoms Gastrointestinal: Reports: Constipation. Denies: Abdominal Pain, Decreased Appetite, Diarrhea, Difficulty Swallowing, Nausea, Vomiting - Patient Data Vitals - Most Recent: Last Vital Signs Temp 96.8 F 06/19/18 11:04 Pulse 64 06/19/18 11:04 Resp 17 06/19/18 11:04 BP 120/47 L 06/19/18 11:04 Pulse Ox 97 06/19/18 11:04 Weight - Most Recent: 144 lb I&O - Last 24 Hours: Intake & Output 06/19/18 06/19/18 06/19/18 06:59 14:59 22:59 Intake Total 1400 Output Total 700 100 Balance 700 -100 Eitan Results Last 24 Hours: Microbiology 06/15/18 14:55 Aerobic Blood Culture - Preliminary Blood - Arm, Left NO GROWTH AFTER 3 DAYS Anaerobic Blood Culture - Preliminary NO GROWTH AFTER 3 DAYS 06/15/18 14:45 Aerobic Blood Culture - Preliminary Blood - Arm, Left NO GROWTH AFTER 3 DAYS Anaerobic Blood Culture - Preliminary NO GROWTH AFTER 3 DAYS Med Orders - Current: Current Medications Acetaminophen (Tylenol) 650 mg PO Q4H PRN PRN Reason: Pain (Mild 1-3)/fever Last Admin: 06/15/18 20:16 Dose: 650 mg Albuterol (Proventil Neb Soln) 2.5 mg NEB Q4H PRN PRN Reason: Shortness Of Breath/wheezing Last Admin: 06/18/18 23:05 Dose: 2.5 mg Enoxaparin Sodium (Lovenox) 40 mg SUBCUT Q24H [facility] Last Admin: 06/18/18 20:37 Dose: 40 mg Guaifenesin/Codeine Phosphate (Robitussin Ac) 10 ml PO Q4H PRN PRN Reason: Cough Last Admin: 06/17/18 22:09 Dose: 10 ml Lactobacillus Rhamnosus (Culturelle) [address] [facility] Last Admin: 06/19/18 09:43 Dose: 1 cap Levofloxacin (Levaquin) [address] [facility] Magnesium Citrate (Citrate Of Magnesia) 296 ml PO ONETIME PRN PRN Reason: Constipation Stop: 06/19/18 21:00 Magnesium Oxide (Magnesium Oxide) [address] [facility] Last Admin: 06/19/18 09:43 Dose: 400 mg Melatonin (Melatonin) [address] [facility] Last Admin: 06/18/18 20:37 Dose: 9 mg Papaya Enzyme Tablet (Pom) [address] [facility] Ondansetron HCl (Zofran) 4 mg IV Q4H PRN PRN Reason: Nausea/Vomiting Oxybutynin Chloride (Oxybutynin) [address] [facility] Last Admin: 06/19/18 09:43 Dose: 5 mg Senna/Docusate Sodium (Senna Plus) 1 tab PO BID PRN PRN Reason: Constipation Last Admin: 06/18/18 23:05 Dose: 1 tab Sodium Biphosphate/Sodium Phosphate (Fleet Enema) 133 ml RECTAL ONETIME PRN PRN Reason: Constipation Last Admin: 06/18/18 20:42 Dose: 133 ml Sodium Chloride (Saline Flush) 10 ml FLUSH ASDIRECTED PRN PRN Reason: Keep Vein Open Tramadol HCl (Ultram) 50 mg PO Q4H PRN PRN Reason: Pain Last Admin: 06/16/18 09:26 Dose: 50 mg Discontinued Medications Bisacodyl (Dulcolax) 10 mg RECTAL ONETIME ONE Stop: 06/18/18 16:01 Last Admin: 06/18/18 19:29 Dose: 10 mg Bisacodyl (Dulcolax) 10 mg PO ONETIME ONE Stop: 06/19/18 14:31 Diphtheria/Tetanus/Acell Pertussis (Adacel) 0.5 ml IM .ONCE ONE Stop: 06/17/18 14:01 Last Admin: 06/17/18 13:34 Dose: 0.5 ml Azithromycin 500 mg/ Sodium (Chloride) 250 mls @ 250 mls/hr IV Q24H [facility] Ceftriaxone Sodium 1 gm/ (Sodium Chloride) 50 mls @ 100 mls/hr IV Q24H [facility] Last Admin: 06/18/18 16:51 Dose: 100 mls/hr Sodium Chloride (Normal Saline) 1,000 mls @ 125 mls/hr IV ASDIRECTED [facility] Last Admin: 06/16/18 09:23 Dose: 125 mls/hr Levofloxacin/Dextrose 750 mg/ (Premix) 150 mls @ 100 mls/hr IV Q24H [facility] Last Admin: 06/15/18 17:02 Dose: 100 mls/hr Levofloxacin/Dextrose 750 mg/ (Premix) 150 mls @ 100 mls/hr IV Q48H [facility] Last Admin: 06/17/18 17:24 Dose: 100 mls/hr Magnesium Sulfate 2 gm/ Premix 50 mls @ 25 mls/hr IV ONETIME ONE Stop: 06/16/18 10:59 Last Admin: 06/16/18 09:17 Dose: 25 mls/hr Papaya Enzyme Tablet (Pom) [address] [facility] Last Admin: 06/19/18 12:00 Dose: 1 each Potassium Chloride (Klor-Con M20) 40 meq PO ONETIME ONE Stop: 06/16/18 09:01 Last Admin: 06/16/18 09:17 Dose: 40 meq - Exam Quality Assessment: DVT Prophylaxis General: Alert, Oriented, Cooperative, Mild Distress Lungs: Clear to Auscultation, Normal Respiratory Effort Cardiovascular: Regular Rate, Regular Rhythm, No Murmurs GI/Abdominal Exam: Soft, Non-Tender, No Organomegaly, No Distention Extremities: Non-Tender, No Pedal Edema - Problem List Review Problem List Initiated/Reviewed/Updated: Yes - My Orders Last 24 Hours: My Active Orders 06/18/18 15:24 Na Phos,M-B/Na Phos,DI-B [Fleet Enema] 133 ml RECTAL ONETIME PRN 06/19/18 14:25 Magnesium Citrate [Citrate of Magnesia] 296 ml PO ONETIME PRN 06/19/18 15:00 levoFLOXacin [Levaquin] 750 mg PO Q24H 06/19/18 17:00 Non-Formulary Medication [NF Drug] 0 each PO TIDMEALS - Plan Plan:: ASSESSMENT AND PLAN RIGHT LUNG PNEUMONIA-almost total resolution of symptoms since admission -Saline lock IV -Nebulized albuterol as needed -Blood and sputum cultures pending -Discontinue IV antibiotics -Levofloxacin 750 mg daily for 2 more days CONSTIPATION-no improvement noted with use of Ribera Lovenox suppository or Fleet enema -Dulcolax tablet 10 mg by mouth now -Needs him citrate 1 bottle if no results from Dulcolax HYPERCALCEMIA-resolved with hydration MAINTENANCE ISSUES -DVT prophylaxis; Lovenox 40 mg subcutaneous daily -GI prophylaxis; not indicated -Connors catheter; not indicated -Nutrition; regular diet -Nicotine dependence; not required CODE STATUS-FULL CODE ADMISSION STATUS-patient will be admitted to inpatient status, expect at least a 2 night hospital stay for evaluation and management of problems as outlined above. At the time of this admission I do not reasonably expected evaluation and management of this problem will require more than a 96 hour hospital stay. DISPOSITION-anticipate discharge to home tomorrow with home care services PRIMARY CARE PROVIDER-Dr. To
[2018-06-19] MEDS ORDERED: Levofloxacin 250 MG Tab PO SCH (16:00)
[2018-06-19] MEDS: Enoxaparin 40 MG/0.4 ML Syringe SUBCUT SCH (20:40)
[2018-06-19] MEDS: Melatonin 3 MG Tab PO SCH (20:41)
[2018-06-20 07:37] VITALS: BP 142/65
[2018-06-20] MEDS: PAPAYA ENZYME PO SCH ×2 (08:12→11:33)
[2018-06-20] MEDS: Oxybutynin 5 MG Tab PO SCH (08:27)
[2018-06-20] MEDS: Magnesium Oxide 400 MG Tab PO SCH (08:27)
[2018-06-20] MEDS: Lactobacillus Rhamnosus GG (Probiotic) Cap PO SCH (08:27)
--- NOTE | 2018-06-20 12:46 | PCM.DCSUM1 ---
Discharge Summary - Hospital Course Brief History: Ms. Mcpherson is an 87-year-old woman who is admitted as a direct admission from the walk-in clinic, with cough, shortness of breath, and hypoxia secondary to right lung pneumonia. - Discharge Data Discharge Date: 06/20/18 Discharge Disposition: Home, Self-Care 01 Condition: Fair - Discharge Diagnosis/Problem(s) (1) Pneumonia SNOMED Code(s): 130613551 ICD Code: J18.9 - PNEUMONIA, UNSPECIFIED ORGANISM Status: Acute Current Visit: Yes (2) Hypoxia SNOMED Code(s): 849965303 ICD Code: R09.02 - HYPOXEMIA Status: Acute Current Visit: Yes (3) Constipation SNOMED Code(s): 83442861 ICD Code: K59.00 - CONSTIPATION, UNSPECIFIED Status: Acute Current Visit : No - Patient Summary/Data Hospital Course: Ms. Bauman is an 87-year-old woman who is admitted as a direct admission from the clinic with progressive weakness, shortness of breath, fever, secondary to right lung pneumonia. She reports that she's not felt well over the past week with cough and progressive increase in shortness of breath, fevers over the past few days. She presented to the walk-in clinic today, white blood cell count is normal, influenza antigens are negative, chest x-ray shows a right lower lung infiltrate. Vital signs have been stable. On admission she was placed on IV antibiotic therapy with levofloxacin and ceftriaxone. Or broad-spectrum antibiotic therapy was indicated because of having failed outpatient therapy with azithromycin. Over the next few days of hospitalization and was transitioned to oral antibiotic therapy with levofloxacin prior to discharge. She initially was given some IV fluids for hydration these were discontinued on the day after admission. She also received nebulizer therapy while hospitalized. Hospitalization was complicated by constipation, requiring the use of laxatives. She did have several good bowel movements prior to discharge. She will be given one additional day of oral antibiotic therapy with levofloxacin. Activity will be as tolerated and she will resume her usual diet. Follow-up appointment will be scheduled with her primary care provider within one week. - Patient Instructions Diet: Usual Diet as Tolerated Activity: As Tolerated Other/Special Instructions: Discharged home with home care services including physical therapy and occupational therapy. All of appointment has been scheduled with Dr. To. - Discharge Plan *PRESCRIPTION DRUG MONITORING PROGRAM REVIEWED*: Not Applicable *COPY OF PRESCRIPTION DRUG MONITORING REPORT IN PATIENT EIV: Not Applicable Prescriptions/Med Rec: levoFLOXacin [Levaquin] 750 mg PO DAILY #1 tab Home Medications: Home Meds Acetaminophen [Tylenol] 650 mg PO Q6H PRN 09/18/16 [History] Cyanocobalamin (Vitamin B12) [Vitamin B12] 1,000 mcg PO DAILY 09/18/16 [History] traMADol [Ultram] 50 mg PO Q4H PRN #30 tablet 09/26/16 [Rx] B12/Levomefolate Calcium/B-6 [Foltx Tablet] 1 each PO WEEKLY 06/15/18 [History] Cholecalciferol (Vitamin D3) [Vitamin D] 5,000 unit PO DAILY 06/15/18 [History] Multivitamin [Multi-Vitamin Daily] 1 tab PO DAILY 06/15/18 [History] Oxybutynin 5 mg PO BID 06/15/18 [History] Papain [Papaya] 100 mg PO PRN 06/15/18 [History] Sennosides [Senna] 2 tab PO DAILY PRN 06/15/18 [History] Lactobacillus Rhamnosus GG [Culturelle] 1 cap PO BID cap 06/20/18 [Rx] levoFLOXacin [Levaquin] 750 mg PO DAILY #1 tab 06/20/18 [Rx] Patient Handouts: Community-Acquired Pneumonia, Adult, [id number] Referrals: Stas To MD [Primary Care Provider] - 06/23/18 1:40 pm (Please arrive 15 minutes jewell to register for your appointment) - Discharge Summary/Plan Comment DC Time >30 min.: No - Patient Data Vitals - Most Recent: Last Vital Signs Temp 96.1 F 06/20/18 07:00 Pulse 84 06/20/18 07:00 Resp 16 06/20/18 07:00 BP 142/65 H 06/20/18 07:00 Pulse Ox 96 06/20/18 07:00 Weight - Most Recent: 140 lb 12.8 oz I&O - Last 24 hours: Intake & Output 06/19/18 06/20/18 06/20/18 22:59 06:59 14:59 Intake Total 480 Output Total 400 200 Balance -400 280 ESTEFANÍA Results - Last 24 hrs: Microbiology 06/15/18 14:55 Aerobic Blood Culture - Preliminary Blood - Arm, Left NO GROWTH AFTER 4 DAYS Anaerobic Blood Culture - Preliminary NO GROWTH AFTER 4 DAYS 06/15/18 14:45 Aerobic Blood Culture - Preliminary Blood - Arm, Left NO GROWTH AFTER 4 DAYS Anaerobic Blood Culture - Preliminary NO GROWTH AFTER 4 DAYS Med Orders - Current: Current Medications Acetaminophen (Tylenol) 650 mg PO Q4H PRN PRN Reason: Pain (Mild 1-3)/fever Last Admin: 06/15/18 20:16 Dose: 650 mg Albuterol (Proventil Neb Soln) 2.5 mg NEB Q4H PRN PRN Reason: Shortness Of Breath/wheezing Last Admin: 06/18/18 23:05 Dose: 2.5 mg Enoxaparin Sodium (Lovenox) 40 mg SUBCUT Q24H [facility] Last Admin: 06/19/18 20:40 Dose: 40 mg Guaifenesin/Codeine Phosphate (Robitussin Ac) 10 ml PO Q4H PRN PRN Reason: Cough Last Admin: 06/17/18 22:09 Dose: 10 ml Lactobacillus Rhamnosus (Culturelle) 1 cap PO BID [facility] Last Admin: 06/20/18 08:27 Dose: 1 cap Levofloxacin (Levaquin) 750 mg PO Q48H [facility] Magnesium Oxide (Magnesium Oxide) 400 mg PO BID [facility] Last Admin: 06/20/18 08:27 Dose: 400 mg Melatonin (Melatonin) 9 mg PO BEDTIME [facility] Last Admin: 06/19/18 20:41 Dose: 9 mg Papaya Enzyme Tablet (Pom) 0 each PO TIDMEALS [facility] Last Admin: 06/20/18 11:33 Dose: 2 each Ondansetron HCl (Zofran) 4 mg IV Q4H PRN PRN Reason: Nausea/Vomiting Oxybutynin Chloride (Oxybutynin) 5 mg PO BID [facility] Last Admin: 06/20/18 08:27 Dose: 5 mg Senna/Docusate Sodium (Senna Plus) 1 tab PO BID PRN PRN Reason: Constipation Last Admin: 06/18/18 23:05 Dose: 1 tab Sodium Biphosphate/Sodium Phosphate (Fleet Enema) 133 ml RECTAL ONETIME PRN PRN Reason: Constipation Last Admin: 06/18/18 20:42 Dose: 133 ml Sodium Chloride (Saline Flush) 10 ml FLUSH ASDIRECTED PRN PRN Reason: Keep Vein Open Tramadol HCl (Ultram) 50 mg PO Q4H PRN PRN Reason: Pain Last Admin: 06/16/18 09:26 Dose: 50 mg Discontinued Medications Bisacodyl (Dulcolax) 10 mg RECTAL ONETIME ONE Stop: 06/18/18 16:01 Last Admin: 06/18/18 19:29 Dose: 10 mg Bisacodyl (Dulcolax) 10 mg PO ONETIME ONE Stop: 06/19/18 14:31 Last Admin: 06/19/18 16:06 Dose: 10 mg Diphtheria/Tetanus/Acell Pertussis (Adacel) 0.5 ml IM .ONCE ONE Stop: 06/17/18 14:01 Last Admin: 06/17/18 13:34 Dose: 0.5 ml Azithromycin 500 mg/ Sodium (Chloride) 250 mls @ 250 mls/hr IV Q24H [facility] Ceftriaxone Sodium 1 gm/ (Sodium Chloride) 50 mls @ 100 mls/hr IV Q24H [facility] Last Admin: 06/18/18 16:51 Dose: 100 mls/hr Sodium Chloride (Normal Saline) 1,000 mls @ 125 mls/hr IV ASDIRECTED [facility] Last Admin: 06/16/18 09:23 Dose: 125 mls/hr Levofloxacin/Dextrose 750 mg/ (Premix) 150 mls @ 100 mls/hr IV Q24H [facility] Last Admin: 06/15/18 17:02 Dose: 100 mls/hr Levofloxacin/Dextrose 750 mg/ (Premix) 150 mls @ 100 mls/hr IV Q48H [facility] Last Admin: 06/17/18 17:24 Dose: 100 mls/hr Magnesium Sulfate 2 gm/ Premix 50 mls @ 25 mls/hr IV ONETIME ONE Stop: 06/16/18 10:59 Last Admin: 06/16/18 09:17 Dose: 25 mls/hr Levofloxacin (Levaquin) 750 mg PO Q24H [facility] Last Admin: 06/19/18 16:06 Dose: 750 mg Magnesium Citrate (Citrate Of Magnesia) 296 ml PO ONETIME PRN PRN Reason: Constipation Stop: 06/19/18 21:00 Last Admin: 06/19/18 20:40 Dose: 296 ml Papaya Enzyme Tablet (Pom) 0 each PO TIDMEALS [facility] Last Admin: 06/19/18 12:00 Dose: 1 each Potassium Chloride (Klor-Con M20) 40 meq PO ONETIME ONE Stop: 06/16/18 09:01 Last Admin: 06/16/18 09:17 Dose: 40 meq - Exam General: Reports: Alert, Oriented, Cooperative, No Acute Distress Lungs: Reports: Clear to Auscultation, Normal Respiratory Effort Cardiovascular: Reports: Regular Rate, Regular Rhythm, No Murmurs GI/Abdominal Exam: Soft, Non-Tender, No Organomegaly, No Distention
[2018-06-21] MEDS ORDERED: Levofloxacin 250 MG Tab PO SCH (16:00)
== END 2018-06-20 13:22 | disposition home or self-care (01) | DRG 195 ==
LOC: JP.MS 14:10
PROVIDERS: ADMIT Hospitalist; ATTEND Hospitalist
DX: J18.9 Pneumonia, unspecified organism (principal); E86.0 Dehydration; E83.52 Hypercalcemia; R09.02 Hypoxemia; K59.09 Other constipation; K21.9 Gastro-esophageal reflux disease without esophagitis; M19.90 Unspecified osteoarthritis, unspecified site; M54.9 Dorsalgia, unspecified; G89.29 Other chronic pain; E55.9 Vitamin D deficiency, unspecified; Z98.84 Bariatric surgery status; H54.7 Unspecified visual loss; H91.90 Unspecified hearing loss, unspecified ear; Z90.49 Acquired absence of other specified parts of digestive tract
CPT/HCPCS: 36415; 80048; 80053; 81001; 83735; 85025; 87040; 90471; 90715; 94640; A9270-GY; J0696; J1650; J1956; J3475; J7030; J7050

== ENCOUNTER 2018-09-01 08:32 | Day surgery (SDC) | payer MEDICARE, BC ==
[~2018-09-01 08:32] MED LIST: Propofol 200 MG/20 ML SDV ONE; fentaNYL 100 MCG/2 ML SDV ONE
[2018-09-01] MEDS ORDERED: Cyanocobalamin (Vitamin B12) 1,000 MCG/ML SDV IM ONE (09:00)
[2018-09-01] MEDS ORDERED: Glycopyrrolate 0.2 MG/ML 2 ML SDV IVPUSH ONE (09:15)
[2018-09-01] MEDS ORDERED: Lactated Ringers 1,000 ML IV SCH (09:15)
[2018-09-01] MEDS ORDERED: MVI, Adult with Vitamin K 10 ML, Thiamine 200 MG, Chromium/Copper/Mang/Selen/Zn 1 ML in... IV ONE ×8 (10:00)
[2018-09-01] MEDS ORDERED: Pantoprazole 40 MG Vial IVPUSH ONE (12:16)
[2018-09-01 13:27] VITALS: BP 102/71
--- NOTE | 2018-09-06 15:40 | OR ---
DATE OF PROCEDURE: 09/01/2018 PREOPERATIVE DIAGNOSIS: Epigastric discomfort and dysphagia. POSTOPERATIVE DIAGNOSES: Epigastric discomfort and dysphagia associated with: 1. Marginal ulcer. 2. Slightly narrowed gastrojejunostomy. PROCEDURE PERFORMED: Upper GI endoscopy with: 1. Dilation of gastrojejunostomy (71712). 2. Biopsies of gastric pouch for CLOtest (59520). INDICATION: This is an 87-year-old status post a revision procedure for Maricruz-en-Y gastric bypass, presenting with some epigastric discomfort as well as dysphagia. She has recently been started on Protonix and has noted some improvement in those symptoms. Plan is to proceed with an upper GI endoscopy with biopsies and/or dilation as indicated. Potential risks including bleeding and perforation were discussed, and the patient wishes to proceed. DESCRIPTION OF PROCEDURE: The patient was taken to the operating room, placed in the left lateral decubitus position. IV sedation was administered, after which the upper GI endoscope was passed orally through the length of the esophagus, into the gastric pouch, from there through the gastrojejunostomy roughly 20 cm into the Maricruz limb. Findings included normal esophagus and EG junction area. Within the gastric pouch, no significant abnormalities were noted, but at the gastrojejunostomy, a small marginal ulcer was present. This was fairly small, but covering with some fibrinous exudate. There was some slight narrowing of the gastrojejunostomy. The scope easily passed through that area and a portion of this was probably related to edema rather than a scar per se. The remaining visualized portion of the Maricruz limb was unremarkable. At this point, biopsies were obtained from the gastric pouch and sent for CLOtest for H. pylori. A 54-Serbian dilator was then inflated across the gastrojejunostomy. This resulted in some slight increase in diameter. The scope was then withdrawn. Procedure was concluded. There were no evident complications. Plan at this point would be to have the patient continue the Protonix and Tums p.r.n. If not improving when the patient follows up with Nai Ji in roughly 1 month, one might consider adding liquid Carafate. Timi Strong MD /[id number]
== END 2018-09-01 13:59 | disposition home or self-care (01) ==
LOC: JP.SDS 08:32
PROVIDERS: ATTEND Surgery
DX: K28.9 Gastrojejunal ulcer, unspecified as acute or chronic, without hemorrhage or perforation (principal); K95.89 Other complications of other bariatric procedure
CPT/HCPCS: 43239; 43245; 87081; C9113; J2704; J3010; J3411; J3420; J3490; J7120

== ENCOUNTER 2019-06-16 08:04 | Day surgery (SDC) | payer MEDICARE, BC ==
[2019-06-16] MEDS ORDERED: Nozin Nasal Sanitizer NASBOTH ONE (08:45)
[2019-06-16] MEDS ORDERED: Lactated Ringers 1,000 ML IV SCH (08:45)
[2019-06-16] MEDS ORDERED: ceFAZolin 2 GM in Premix Bag 1 BAG IV ONE (09:00)
[2019-06-16] MEDS ORDERED: Bupivacaine 0.5% 30 ML SDV ONE ×2 (11:10→12:43)
[2019-06-16] MEDS ORDERED: Midazolam 1 MG/ML 2 ML SDV ONE (12:41)
[2019-06-16] MEDS ORDERED: fentaNYL 100 MCG/2 ML SDV ONE ×2 (12:41→14:51)
[2019-06-16] MEDS ORDERED: Propofol 200 MG/20 ML SDV ONE ×3 (12:41→14:51)
[2019-06-16] MEDS ORDERED: Lactated Ringers 1,000 ML ONE (14:00)
[2019-06-16] MEDS ORDERED: Gelatin Sponge,Absorbable Pwd 1 GM Pkt MISC ONE (15:00)
[2019-06-16] MEDS ORDERED: Acetaminophen/oxyCODONE 325-5 MG Tab PO PRN (16:18)
[2019-06-16 17:18] VITALS: BP 101/46; PULSE 72
[2019-06-16] MEDS ORDERED: Ibuprofen 600 MG Tab PO PRN (19:24)
--- NOTE | 2019-06-29 09:02 | OR ---
DATE OF PROCEDURE: 06/16/2019 SURGEON: Aly Oleary MD PREOPERATIVE DIAGNOSES: 1. Lipoma, posterior left shoulder. 2. Impingement, left shoulder with possible rotator cuff tear. POSTOPERATIVE DIAGNOSIS: Large lipoma, posterior aspect of left shoulder; small rotator cuff tear. PROCEDURES: 1. Excision of lipoma, left shoulder. 2. Arthroscopy, left shoulder for evaluation of rotator cuff. 3. Bursectomy. 4. Open rotator cuff repair. ANESTHESIA: Interscalene block with sedation. INDICATIONS: Danette is an 88-year-old female with a history of increasing pain in her left shoulder, primarily posterior aspect due to pressure from a large lipoma. Also had an increasing difficulty with overhead reaching and lifting. MRI and exam consistent with lipoma and partial-thickness versus small full-thickness tear. Risks, benefits , potential complications of the procedure were discussed. DESCRIPTION OF PROCEDURE: After adequate anesthesia was obtained, the patient was placed in a lateral decubitus position and secured with a batista bag positioner. All bony prominences were padded. Left shoulder and arm were then prepped and draped in a sterile fashion and 10 pounds of traction was placed in a shoulder traction unit. Incision was made in the posterior aspect of the shoulder in line with Anisa's lines and carried through the subcutaneous tissues. Large lipomatous mass was identified. Due to significant potential for large cosmetic deformity with soft tissue defect, the lipoma was not resected en bloc. This was debulked removing approximately 2/3rd of the lipoma and leaving a portion of it to prevent the cosmetic deformity. Hemostasis was obtained with electrocautery. Some small bleeding was not controlled and the wound was packed. Scope was then introduced and glenohumeral joint was inspected. This revealed some very minimal degenerative changes. Subscapularis was intact. Biceps showed some mild tendinopathy but was intact. Undersurface of the rotator cuff showed significant thinning at the insertion and possible full-thickness tear. Spinal needle was used to kamran this area with a PDS suture. Scope was withdrawn and placed in the subacromial space. Lateral portal was established and bursa was resected. The area that had been marked was evaluated and found to have a very small perforation, small thickness tear with a slightly larger area of partial thickness tear. Decision was made to proceed with repair. Shaver was used to resect the partial-thickness area resulting in a chair of approximately 1 cm in width. Tuberosity was lightly decorticated. Awl was used to place tunnel in the tuberosity and a 4.5 [place] anchor was placed. Sutures were brought up through the tendon in a mattress fashion with the Expressew. In the process of tying this down, the suture anchor became dislodged from the bone. The sutures were cut and the anchor was removed. A 5.5 anchor was then placed in the same tunnel, initially appeared to have good fixation. However, again during the process of placing the sutures and tying down, the anchor was dislodged. [place] was placed without sutures in an attempt to double stack this and provide fixation. However, the anchor fell further into the tuberosity and decision was made to proceed with open repair using a transosseous technique. Lateral portal was extended, carried down to the subcutaneous tissues and the deltoid was split in line with its fibers. Self-retaining retractor was placed. Sutures were placed into the edge of the tendon in a locking fashion. Free needle was then used to place the tendon through the tuberosity and out the lateral aspect. Sutures were then tied over the bone bridge. The sutures were cut. Arm was taken through range of motion and the repair was stable. Deltoid was then repaired in a [id number] fashion. Port sites were closed also in a standard fashion. Packing was then removed from the posterior wound. This was irrigated and some bleeding was still present. Further bleeding was controlled with electrocautery and Gelfoam. Wound was then closed with 0 Vicryl and 2-0 Vicryl, 3-0 Monocryl in the skin and Steri- Strips were applied. Sterile dressing was then placed. The patient tolerated the procedure well. There were no complications. She was taken from the operating room in stable condition. Aly Oleary MD /[id number] AKASH
== END 2019-06-16 19:45 | disposition home or self-care (01) ==
LOC: JP.SDS 08:04
PROVIDERS: ATTEND Specialist
DX: M75.112 Incomplete rotator cuff tear or rupture of left shoulder, not specified as traumatic (principal); D17.22 Benign lipomatous neoplasm of skin and subcutaneous tissue of left arm; M75.22 Bicipital tendinitis, left shoulder; G89.29 Other chronic pain; K91.2 Postsurgical malabsorption, not elsewhere classified; Z98.84 Bariatric surgery status; Z96.653 Presence of artificial knee joint, bilateral; Z79.899 Other long term (current) drug therapy
CPT/HCPCS: 23071; 23412; A9270; C1713; J0690; J2250; J2704; J3010; J3490; J7120

== ENCOUNTER 2019-07-01 13:14 | Emergency (ER) | payer MEDICARE, BC ==
[2019-07-01 13:44] VITALS: BP 138/53; PULSE 57
--- NOTE | 2019-07-01 14:15 | EDM.PDOC ---
ED HPI GENERAL MEDICAL PROBLEM - General Chief Complaint: Wound Recheck Stated Complaint: BLEEDING AT SURGICAL SITE POST SURGERY Time Seen by Provider: 07/01/19 14:05 Source of Information: Reports: Patient, Family, Old Records, RN History Limitations: Reports: No Limitations - History of Present Illness INITIAL COMMENTS - FREE TEXT/NARRATIVE: 88 yo female presents for a wound check. She had L shoulder surgery for a rotator cuff tear and removal of a lipoma. Today had drainage of dark blood from the area and became alarmed. Dr. Oleary is not available so they came here. No fever or change in her level of pain. Onset: Today Onset Date: 07/01/19 Duration: Hour(s):, Waxing/Waning Location: Reports: Back (L upper) Quality: Reports: Dull Severity: Mild Improves with: Reports: None Worsens with: Reports: None Context: Reports: Other (Surgery early ) Associated Symptoms: Reports: No Other Symptoms Treatments NUTRITION HELPER: Reports: Other (see below) (usual meds) Left Shoulder Pain Score (Numeric/FACES): 6 - Related Data Allergies Allergy/AdvReac Type Severity Reaction Status Date / Time No Known Allergies Allergy Verified 07/01/19 13:53 Home Meds: Home Meds Multivitamin [Multi-Vitamin Daily] 1 tab PO DAILY 06/15/18 [History] Oxybutynin 5 mg PO BID 06/15/18 [History] Papain [Papaya] 100 mg PO ASDIRECTED PRN 06/15/18 [History] traMADol [Ultram] 1 - 2 tab PO BEDTIME PRN 08/31/18 [History] Cyanocobalamin (Vitamin B-12) [Cyanocobalamin Injection] 1 ml IM .MONTHLY [History] Past Medical History HEENT History: Reports: Cataract, Hard of Hearing, Impaired Vision Other HEENT History: wears glasses Cardiovascular History: Reports: SOB on Exertion, Syncope Respiratory History: Reports: Pneumonia, Recurrent Gastrointestinal History: Reports: Cholelithiasis, Chronic Constipation, Gastritis, GERD 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 L shoulder pain Neurological History: Reports: Headaches, Chronic Psychiatric History: Reports: None Endocrine/Metabolic History: Reports: Obesity/BMI 30+, Vitamin D Deficiency Hematologic History: Reports: None Immunologic History: Reports: None Oncologic (Cancer) History: Reports: None Dermatologic History: Reports: None - Infectious Disease History Infectious Disease History: Reports: Other (See Below) Other Infectious Disease History: unknown - Past Surgical History HEENT Surgical History: Reports: Cataract Surgery GI Surgical History: Reports: Appendectomy, Bariatric Procedure, Cholecystectomy , Colonoscopy, EGD, Hernia, Abdominal, Obed Fundoplication, Other (See Below) Other GI Surgeries/Procedures: bariatric surgery 40+ years ago in [place], [place] Musculoskeletal Surgical History: Reports: Arthroscopic Knee, Arthroscopic Procedure, Shoulder Surgery Other Musculoskeletal Surgeries/Procedures:: Bilateral knee surgery Dermatological Surgical History: Reports: Skin Biopsy Social & Family History - Family History Family Medical History: Noncontributory Cardiac: Reports: CAD, CT Neurological: Reports: Parkinson's Oncologic: Reports: Lymphoma - Tobacco Use Smoking Status *Q: Never Smoker - Caffeine Use Caffeine Use: Reports: Coffee - Recreational Drug Use Recreational Drug Use: No ED ROS GENERAL - Review of Systems Review Of Systems: See Below Constitutional: Reports: No Symptoms Musculoskeletal: Reports: Shoulder Pain (no recent changes since surgery.) Skin: Reports: Wound (surgical L shoulder). Denies: Erythema Neurological: Reports: No Symptoms ED EXAM, SKIN/RASH Exam: See Below Exam Limited By: No Limitations General Appearance: Alert, WD/WN, No Apparent Distress Extremities: Other (L shoulder surgical wound is present. There is some fluctuance suggesting some old blood under the skin. There is a small amt of this old blood leaking from the surgical wound. No sign of infection. No fresh bleeding. ). No: Normal Inspection, Normal Range of Motion, Non-Tender, Increased Warmth, Redness Neurological: Alert, Oriented, CN II-XII Intact, Normal Cognition, No Motor/ Sensory Deficits Skin: Warm, Normal Color, No Rash, Wound/Incision (surgical wound post L shoulder). No: Erythema Location, Skin: Upper Extremity, Left (L post shoulder) Associated features: No: Warmth Course - Vital Signs Last Recorded V/S: Last Vital Signs Temp 35.9 C L 07/01/19 13:51 Pulse 57 L 07/01/19 13:51 Resp 16 07/01/19 13:51 BP 138/53 L 07/01/19 13:51 Pulse Ox 99 07/01/19 13:51 Departure - Departure Time of Disposition: 14:15 Disposition: Home, Self-Care 01 Condition: Good Clinical Impression: Encounter for wound re-check - Discharge Information *PRESCRIPTION DRUG MONITORING PROGRAM REVIEWED*: Not Applicable *COPY OF PRESCRIPTION DRUG MONITORING REPORT IN PATIENT EVI: Not Applicable Referrals: Stas To MD [Primary Care Provider] - Additional Instructions: Continue present cares. Change dressing as needed to catch the drainage of old blood. Recheck for redness or increased warmth to area. Sepsis Event Note - Evaluation Sepsis Screening Result: No Definite Risk - Focused Exam Vital Signs: Vital Signs Temp Pulse Resp BP Pulse Ox 07/01/19 13:51 35.9 C L 57 L 16 138/53 L 99 07/01/19 13:42 35.9 C L 57 L 16 138/53 L 99 Date Exam was Performed: 07/01/19 Time Exam was Performed: 14:10
== END 2019-07-01 14:23 | disposition home or self-care (01) ==
LOC: JP.ED 13:14
DX: Z48.817 Encounter for surgical aftercare following surgery on the skin and subcutaneous tissue (principal); E66.9 Obesity, unspecified; Z68.28 Body mass index [BMI] 28.0-28.9, adult
CPT/HCPCS: 99282; 99283

== ENCOUNTER 2020-02-01 07:11 | Day surgery (SDC) | payer MEDICARE, BC ==
[2020-02-01] MEDS ORDERED: Propofol 200 MG/20 ML SDV ONE (07:27)
[2020-02-01] MEDS: Lactated Ringers 1,000 ML IV ONE ×2 (07:49→09:38)
[2020-02-01] MEDS ORDERED: Cyanocobalamin (Vitamin B12) 1,000 MCG/ML SDV IM ONE (08:00)
[2020-02-01] MEDS ORDERED: MVI, Adult with Vitamin K 10 ML, Thiamine 200 MG, Chromium/Copper/Mang/Selen/Zn 1 ML in... IV ONE ×4 (09:00)
[2020-02-01 10:02] VITALS: BP 135/59; PULSE 60
--- NOTE | 2020-02-01 11:07 | OR ---
DATE OF PROCEDURE: 02/01/2020 SURGEON: Paul Lord MD PROCEDURE: Esophagogastroduodenoscopy. FINDINGS: Normal esophagogastroduodenoscopy. COMPLICATIONS: None. 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 ANESTHESIA: MAC. PREOPERATIVE DIAGNOSIS: Dysphagia. POSTOPERATIVE DIAGNOSIS: Dysphagia. RISKS: Risks, benefits, alternatives, and limitations including, but not limited to infection, bleeding, and perforation were explained to the patient, who wished to proceed. PROCEDURE IN DETAIL: The patient was placed in left lateral decubitus position. The EGD scope was introduced and advanced atraumatically through the esophagus and into the small bowel. No evidence of narrowing or stricturing. [id number] appeared appropriate. No ulcerations. No inflammation of any kind. The esophagus was normal. The patient tolerated the procedure well. Paul Lord MD /[id number]
== END 2020-02-01 11:20 | disposition home or self-care (01) ==
LOC: JP.SDS 07:11
PROVIDERS: ATTEND Surgery
DX: R13.10 Dysphagia, unspecified (principal); Z98.84 Bariatric surgery status
CPT/HCPCS: 43235; J2704; J3411; J3420; J7120